=== PATIENT | female | born 1960 | race Caucasian/White ===

== ENCOUNTER 2018-01-17 19:22 | Emergency (ER) | payer SELFPAY ==
[~2018-01-17] VITALS: Ht 160 cm; Wt 78.0 kg
[~2018-01-17 19:22] MED LIST: ALBUTEROL SULF8.5 GM PO; CLONAZEPAM1 MG PO; PANTOPRAZOLE SO40 MG PO; PAROXETINE HCL20 MG PO; SINGULAIR10 MG PO; TYLENOL WITH C1 EACH PO
--- OUTSIDE RECORDS SUMMARY | 2018-01-17 19:26 | XMS REPORT | CCD ---
Author Author Auto Generated Organization [facility] Address Unknown Phone Unavailable Care Team Providers Care Regional Safety Manager Name Role Phone Mamadou Hernandez PP Rishi Martinez CP Allergies, Adverse Reactions, Alerts Substance Reaction Status NKDA Active Problem List Condition Effective Dates Status Asthma Active Cellulitis of arm1 Active HTN - Hypertension Active 1R upper arm Medications Medication Instructions Start Date End Date Status morphine Sulfate 4 mg, 2 mL, Route: IVP, Drug form: 05/01/2012 05/05/2012 Discontinued INJ, Q4H, Dosing Weight 83.636, kg, PRN Pain Score 7-10, Start date: 05/01/12 13:22:00, Duration: 30 day, Stop date: 05/31/12 13:21:00 ondansetron 4 mg, 2 mL, Route: IVP, Drug form: 05/01/2012 05/01/2012 Completed INJ, ONCE, Dosing Weight 83.636, kg, PRN Nausea & Vomiting, Start date: 05/01/12 13:22:00 acetaminophen-hydroc 1 tab, Route: PO, Drug Form: TAB, 05/01/2012 05/05/2012 Discontinued odone 325 mg-5 mg Dosing Weight 83.636, kg, Q4H, PRN oral tablet Pain Score 1-3, Start date: 05/01/12 13:22:00, Duration: 30 day, Stop date: 05/31/12 13:21:00 Sodium Chloride 1,000 mL, Rate: 125 ml/hr, Infuse 05/01/2012 05/01/2012 Discontinued 0.45% IV 1000 mL over: 8 hr, Route: IV, Dosing Weight 83.636 kg, Total Volume: 1,000, Start date: 05/01/12 13:22:00, Duration: 30 day, Stop date: 05/31/12 13:21:00 acetaminophen-hydroc 2 tab, Route: PO, Drug Form: TAB, 05/01/2012 05/04/2012 Deleted odone 325 mg-5 mg Dosing Weight 83.636, kg, Q4H, PRN oral tablet Pain Score 4-6, Start date: 05/01/12 13:22:00, Duration: 30 day, Stop date: 05/31/12 13:21:00 morphine Sulfate 2 mg, 1 mL, Route: IVP, Drug form: 05/01/2012 05/05/2012 Discontinued INJ, Q4H, Dosing Weight 83.636, kg, PRN Pain Score 6-10, Start date: 05/01/12 13:22:00, Duration: 30 day, Stop date: 05/31/12 13:21:00 NURSE: Please bring NURSE: Please bring PT's home med 05/02/2012 05/05/2012 Discontinued PT's home med to to Pharmacy to be verified, 1, Drug Pharmacy to be form: [facility], Route: MISC, TID, verified 05/02/12 20:00:00, Duration: 30 day, Stop date: 06/01/12 15:00:00 Prisiq 50mg ER Prisiq 50mg ER PT's Own 05/03/2012 05/05/2012 Discontinued PT's Own Med Med, 50 mg, Drug form: MISC, Route: PO, Daily, 05/03/12 9:00:00, Duration: 30 day, Stop date: 06/01/12 9:00:00 morphine Sulfate 2 mg, Route: IVP, Q4H, Dosing 05/01/2012 05/01/2012 Deleted Weight 83.636, kg, PRN Pain, Start date: 05/01/12 13:32:00, Duration: 30 day, Stop date: 05/31/12 13:31:00 Effexor 225 mg, PO, Daily, Substitution 05/03/2012 Ordered Allowed atenolol 50 mg oral 50 mg, 1 tab, PO, Daily, 30 tab, 05/05/2012 Ordered tablet Substitution Allowed, TAB hydromorphone 2 mg, 2 mL, Route: IV, Drug form: 05/01/2012 05/05/2012 Discontinued SOLN, Q4H, PRN Pain Score 7-10, Start date: 05/01/12 18:03:00, Duration: 30 day, Stop date: 05/31/12 18:02:00 Piqua 5/325 oral 2 tab, Route: PO, Drug Form: TAB, 05/01/2012 05/05/2012 Discontinued tablet Dosing Weight 83.636, kg, Q4H, PRN Pain Score 4-6, Start date: 05/01/12 10:58:00, Duration: 30 day, Stop date: 05/31/12 10:57:00 Dextrose 5% with 1,000 mL, Rate: 200 ml/hr, Infuse 05/01/2012 05/02/2012 Discontinued 0.45% NaCl IV 1,000 over: 5 hr, Route: IV, kg, Total mL Volume: 1,000, Start date: 05/01/12 18:05:00, Duration: 30 day, Stop date: 05/31/12 18:04:00 clonidine 0.1 mg 0.1 mg, 1 tab, Route: PO, Drug 05/01/2012 05/05/2012 Discontinued oral tablet form: TAB, QID, Dosing Weight 81.818, kg, PRN Elevated BP, Start date: 05/01/12 21:56:00, Duration: 30 day, Stop date: 05/31/12 21:55:00, sbp greater than 160 enoxaparin 40 mg, 0.4 mL, Route: SUB-Q, Drug 05/01/2012 05/05/2012 Discontinued form: INJ, [id number], Dosing Weight 83.636, kg, Start date: 05/01/12 13:00:00, Duration: 30 day, Stop date: 05/30/12 13:00:00 Lopressor 5 mg, 5 mL, Route: IV, Drug form: 05/01/2012 05/05/2012 Discontinued INJ, Q4H, PRN Elevated BP, Start date: 05/01/12 18:02:00, Duration: 30 day, Stop date: 05/31/12 18:01:00 clonidine 0.1 mg/24 1 patch, Route: TOP, Drug Form: 05/01/2012 05/05/2012 Discontinued hr transdermal film, ERFILM, Dosing Weight 83.636, kg, extended release Q7D, Start date: 05/01/12 14:00:00, Duration: 30 day, Stop date: 05/29/12 9:00:00 Effexor XR 225 mg, 3 cap, Route: PO, Drug 05/05/2012 05/05/2012 Discontinued form: ERCAP, Daily, Start date: 05/05/12 9:00:00, Duration: 30 day, Stop date: 06/03/12 9:00:00 D5NS + KCL 20mEq/L 1,000 mL, Rate: 200 ml/hr, Infuse 05/01/2012 05/01/2012 Discontinued 1000ml (Premix) over: 5 hr, Route: IV, kg, Total 1,000 mL Volume: 1,000, Start date: 05/01/12 13:30:00, Duration: 30 day, Stop date: 05/31/12 13:29:00 Singulair 10 mg, 1 tab, Route: PO, Drug form: 05/02/2012 05/05/2012 Discontinued TAB, Bedtime, Dosing Weight 81.818, kg, Start date: 05/02/12 21:00:00, Duration: 30 day, Stop date: 05/31/12 21:00:00 Pristiq 50 mg oral 50 mg, 1 tab, Route: PO, Drug form: 05/03/2012 05/02/2012 Deleted tablet, extended ERTAB, Daily, Dosing Weight 81.818, release kg, Start date: 05/03/12 9:00:00, Duration: 30 day, Stop date: 06/01/12 9:00:00 pneumococcal 0.5 ml, Route: IM, Drug Form: INJ, 05/05/2012 05/05/2012 Completed 23-valent vaccine Start date: 05/05/12 9:00:00, Stop date: 05/05/12 9:00:00 K-Dur 20 20 mEq, 1 tab, Route: PO, Drug 05/04/2012 05/04/2012 Completed form: ERTAB, ONCE, Dosing Weight 81.818, kg, Start date: 05/04/12 9:51:00, Stop date: 05/04/12 9:51:00 atenolol 50 mg oral 50 mg, 1 tab, Route: PO, Drug form: 05/03/2012 05/05/2012 Discontinued tablet TAB, Daily, Dosing Weight 81.818, kg, Start date: 05/03/12 9:00:00, Duration: 30 day, Stop date: 06/01/12 9:00:00 Abilify 5 mg, 1 tab, Route: PO, Drug form: 05/02/2012 05/05/2012 Discontinued TAB, Daily, Dosing Weight 81.818, kg, Start date: 05/02/12 19:22:00, Duration: 30 day, Stop date: 06/01/12 9:00:00 DuoNeb inhalation 3 ml, Route: INHALATION, Drug Form: 05/01/2012 05/05/2012 Discontinued solution SOLN, Dosing Weight 83.636, kg, PRN, PRN Respiratory Protocol, Start date: 05/01/12 9:12:00, Duration: 30 day, Stop date: 05/31/12 10:11:00 pneumococcal 0.5 ml, Route: IM, Drug Form: INJ, 05/05/2012 05/05/2012 Completed 23-valent vaccine Daily, Start date: 05/05/12 9:00:00, Duration: 1 doses or times, Stop date: 05/05/12 9:00:00 tramadol 50 mg oral 50 mg, 1 tab, PO, Q4H, PRN, 60 tab, 05/05/2012 Ordered tablet for pain, Substitution Allowed, TAB D5W 1/2NS + KCL 1,000 mL, Rate: 100 ml/hr, Infuse 05/02/2012 05/04/2012 Discontinued 10mEq 500ml (Premix) over: 10 hr, Route: IV, kg, Total 1,000 mL Volume: 1,000, Start date: 05/02/12 18:36:00, Stop date: 06/01/12 18:35:00 morphine Sulfate 4 mg, Route: IVP, ONCE, Dosing 05/01/2012 05/01/2012 Completed Weight 83.636, kg, Priority: STAT, Start date: 05/01/12 9:11:00, Stop date: 05/01/12 9:11:00 Saline Flush 0.9% 5 mL, Route: IVP, Drug Form: INJ, 05/01/2012 05/01/2012 Discontinued Dosing Weight 83.636, kg, PRN, PRN Line Flush, Start date: 05/01/12 9:11:00, Duration: 24 hr, Stop date: 05/02/12 9:10:00 Sodium Chloride 0.9% 1,000 mL, Rate: 1,000 ml/hr, Infuse 05/01/2012 05/01/2012 Completed (Bolus) IV 1,000 mL over: 1 hr, Route: IV, Dosing Weight 83.636 kg, Total Volume: 1,000, Priority: STAT, Start date: 05/01/12 9:11:00, Duration: 1 doses or times, Stop date: 05/01/12 10:10:00 ondansetron 4 mg, Route: IVP, ONCE, Dosing 05/01/2012 05/01/2012 Completed Weight 83.636, kg, Priority: STAT, Start date: 05/01/12 9:11:00, Stop date: 05/01/12 9:11:00 morphine Sulfate 4 mg, Route: IVP, Drug form: INJ, 05/01/2012 05/01/2012 Completed ONCE, Dosing Weight 83.636, kg, Priority: STAT, Start date: 05/01/12 9:39:00, Stop date: 05/01/12 9:39:00 Immunizations Vaccine Date Status pneumococcal 23-valent vaccine 05/05/2012 Not Done Vital Signs Most recent to oldest [Reference Range]: 1 2 3 Height 160.02 cm (05/01/2012 17:42:00) 162.56 cm (05/01/2012 09:28:00) 162.56 cm (05/01/2012 08:50:00) Temperature Oral [96.4-99.1 DegF] 97.7 DegF (05/05/2012 12:18:00) 98.4 DegF (05/05/2012 07:55:00) 98.6 DegF (05/05/2012 04:00:00) Systolic Blood Pressure [90-140 mmHg] 121 mmHg (05/05/2012 12:18:00) 124 mmHg (05/05/2012 07:55:00) 114 mmHg (05/05/2012 04:00:00) Diastolic Blood Pressure [60-90 mmHg] 85 mmHg (05/05/2012 12:18:00) 84 mmHg (05/05/2012 07:55:00) 77 mmHg (05/05/2012 04:00:00) Respiratory Rate [14-20 BRMIN] 20 BRMIN (05/05/2012 12:18:00) 20 BRMIN (05/05/2012 07:55:00) 18 BRMIN (05/05/2012 06:58:00) Peripheral Pulse Rate [60-100 bpm] 74 bpm (05/05/2012 12:18:00) 79 bpm (05/05/2012 07:55:00) 78 bpm (05/05/2012 04:00:00) Weight 81.818 kg (05/01/2012 17:42:00) 83.636 kg (05/01/2012 09:28:00) 83.636 kg (05/01/2012 08:50:00) Results BEDSIDE GLUCOSE TESTING Most recent to oldest [Reference Range]: 1 2 3 Gluc POC Lifscn [70-99 mg/dL] 99 mg/dL 1 (05/04/2012 10:12:00) 113 mg/dL 2 *HI* (05/04/2012 05:18:00) 99 mg/dL 3 (05/03/2012 15:56:00) Comment1 Notify RN/MD *NA* (05/04/2012 05:18:00) Notify RN/MD *NA* (05/03/2012 12:17:00) Notify RN/MD *NA* (05/03/2012 06:32:00) 1Interpretive Data: Upper Reportable Limit: 200 mg/dL. 2Interpretive Data: Upper Reportable Limit: 200 mg/dL. 3Interpretive Data: Upper Reportable Limit: 200 mg/dL. URINALYSIS Most recent to oldest [Reference Range]: 1 2 3 UA Turbidity [Clear] Slight *ABN* (05/01/2012 09:10:00) UA Color [Yellow] Yellow *NA* (05/01/2012 09:10:00) UA pH [5.0-8.0] 5.0 (05/01/2012 09:10:00) UA Spec Grav [<=1.030] 1.020 (05/01/2012 09:10:00) UA Glucose [Negative mg/dL] Negative mg/dL *NA* (05/01/2012 09:10:00) UA Blood [Negative] Negative (05/01/2012 09:10:00) UA Ketones [Negative mg/dL] Trace mg/dL *ABN* (05/01/2012 09:10:00) UA Protein [Negative mg/dL] 30 mg/dL *ABN* (05/01/2012 09:10:00) UA Urobilinogen [0.1-1.0 mg/dL] <=1.0 mg/dL *NA* (05/01/2012 09:10:00) UA Bili [Negative] Negative *NA* (05/01/2012 09:10:00) UA Leuk Est [Negative] Negative (05/01/2012 09:10:00) UA Nitrite [Negative] Negative (05/01/2012 09:10:00) UA WBC [0-5 /HPF] 1 /HPF (05/01/2012 09:10:00) UA RBC [0-2 /HPF] 1 /HPF (05/01/2012 09:10:00) UA Bacteria [None Seen /HPF] Occasional /HPF *NA* (05/01/2012 09:10:00) UA Sq Epi [Few /LPF] Few /LPF *NA* (05/01/2012 09:10:00) UA Hyal Cast [0-2 /LPF] 11 /LPF *HI* (05/01/2012 09:10:00) UA Mucus [None Seen /LPF] Few /LPF *NA* (05/01/2012 09:10:00) CHEMISTRY Most recent to oldest [Reference Range]: 1 2 3 Sodium Lvl [135-145 mEq/L] 139 mEq/L (05/04/2012 06:53:00) 138 mEq/L (05/03/2012 05:01:00) 139 mEq/L (05/02/2012 03:47:00) Potassium Lvl [3.5-5.1 mEq/L] 3.3 mEq/L *LOW* (05/04/2012 06:53:00) 3.6 mEq/L (05/03/2012 05:01:00) 3.6 mEq/L (05/02/2012 03:47:00) Chloride Lvl [95-109 mEq/L] 104 mEq/L (05/04/2012 06:53:00) 103 mEq/L (05/03/2012 05:01:00) 105 mEq/L (05/02/2012 03:47:00) CO2 [24-32 mEq/L] 25 mEq/L (05/04/2012 06:53:00) 26 mEq/L (05/03/2012 05:01:00) 26 mEq/L (05/02/2012 03:47:00) AGAP [10.0-20.0 mEq/L] 13.3 mEq/L (05/04/2012 06:53:00) 12.6 mEq/L (05/03/2012 05:01:00) 11.6 mEq/L (05/02/2012 03:47:00) Creatinine Lvl [0.5-1.4 mg/dL] 0.7 mg/dL (05/04/2012 06:53:00) 0.8 mg/dL (05/03/2012 05:01:00) 0.8 mg/dL (05/02/2012 03:47:00) eGFR 101 mL/min/1.73m2 4 *NA* (05/04/2012 06:53:00) 86 mL/min/1.73m2 5 *NA* (05/03/2012 05:01:00) 86 mL/min/1.73m2 6 *NA* (05/02/2012 03:47:00) BUN [7-22 mg/dL] 4 mg/dL *LOW* (05/04/2012 06:53:00) 6 mg/dL *LOW* (05/03/2012 05:01:00) 14 mg/dL (05/02/2012 03:47:00) B/C Ratio [6-25] 6 (05/04/2012 06:53:00) 8 (05/03/2012 05:01:00) 18 (05/02/2012 03:47:00) Glucose Lvl [70-99 mg/dL] 92 mg/dL 7 (05/04/2012 06:53:00) 107 mg/dL 8 *HI* (05/03/2012 05:01:00) 145 mg/dL 9 *HI* (05/02/2012 03:47:00) Total Protein [6.4-8.4 g/dL] 5.7 g/dL *LOW* (05/04/2012 06:53:00) 5.9 g/dL *LOW* (05/03/2012 05:01:00) 7.2 g/dL (05/02/2012 03:47:00) Albumin Lvl [3.5-5.0 g/dL] 2.8 g/dL *LOW* (05/04/2012 06:53:00) 3.1 g/dL *LOW* (05/03/2012 05:01:00) 3.6 g/dL (05/02/2012 03:47:00) Globulin [2.0-4.0 g/dL] 2.9 g/dL (05/04/2012 06:53:00) 2.8 g/dL (05/03/2012 05:01:00) 3.6 g/dL (05/02/2012 03:47:00) A/G Ratio [0.7-1.6] 1.0 (05/04/2012 06:53:00) 1.1 (05/03/2012 05:01:00) 1.0 (05/02/2012 03:47:00) Calcium Lvl [8.5-10.5 mg/dL] 7.8 mg/dL *LOW* (05/04/2012 06:53:00) 7.5 mg/dL *LOW* (05/03/2012 05:01:00) 8.3 mg/dL *LOW* (05/02/2012 03:47:00) ALT [0-65 unit/L] 28 unit/L (05/04/2012 06:53:00) 28 unit/L (05/03/2012 05:01:00) 27 unit/L (05/02/2012 03:47:00) AST [0-37 unit/L] 31 unit/L (05/04/2012 06:53:00) 37 unit/L (05/03/2012 05:01:00) 26 unit/L (05/02/2012 03:47:00) Alk Phos [39-136 unit/L] 87 unit/L (05/04/2012 06:53:00) 85 unit/L (05/03/2012 05:01:00) 95 unit/L (05/02/2012 03:47:00) Bili Total [0.2-1.3 mg/dL] 0.8 mg/dL (05/04/2012 06:53:00) 0.6 mg/dL (05/03/2012 05:01:00) 0.5 mg/dL (05/02/2012 03:47:00) Amylase Lvl [25-115 unit/L] 70 unit/L (05/04/2012 06:53:00) Lipase Lvl [73-393 unit/L] 705 unit/L *HI* (05/04/2012 06:53:00) 4486 unit/L *HI* (05/03/2012 05:01:00) 59918 unit/L *HI* (05/02/2012 03:47:00) CHD Risk [3.90-5.80] 3.01 *LOW* (05/02/2012 03:47:00) Chol [120-200 mg/dL] 238 mg/dL *HI* (05/02/2012 03:47:00) Trig [0-200 mg/dL] 229 mg/dL *HI* (05/02/2012 03:47:00) HDL [>=35 mg/dL] 79 mg/dL (05/02/2012 03:47:00) LDL [0-129 mg/dL] 113 mg/dL (05/02/2012 03:47:00) 4Result Comment: The eGFR is calculated using the CKD-EPI formula. In most young, healthy individuals the eGFR will be >90 mL/min/1.73m2. The eGFR declines with age. An eGFR of 60-89 may be normal in some populations, particularly the elderly, for whom the CKD-EPI formula has not been extensively validated. Use of the eGFR is not recommended in the following populations: Individuals with unstable creatinine concentrations, including patients and those with serious co-morbid conditions. Patients with extremes in muscle mass or diet. The data above are obtained from the National Kidney Disease Education Program ( NKDEP) which additionally recommends that when the eGFR is used in patients with extremes of body mass index for purposes of drug dosing, the eGFR should be mul tiplied by the estimated BMI. 5Result Comment: The eGFR is calculated using the CKD-EPI formula. In most young, healthy individuals the eGFR will be >90 mL/min/1.73m2. The eGFR declines with age. An eGFR of 60-89 may be normal in some populations, particularly the elderly, for whom the CKD-EPI formula has not been extensively validated. Use of the eGFR is not recommended in the following populations: Individuals with unstable creatinine concentrations, including patients and those with serious co-morbid conditions. Patients with extremes in muscle mass or diet. The data above are obtained from the National Kidney Disease Education Program ( NKDEP) which additionally recommends that when the eGFR is used in patients with extremes of body mass index for purposes of drug dosing, the eGFR should be mul tiplied by the estimated BMI. 6Result Comment: The eGFR is calculated using the CKD-EPI formula. In most young, healthy individuals the eGFR will be >90 mL/min/1.73m2. The eGFR declines with age. An eGFR of 60-89 may be normal in some populations, particularly the elderly, for whom the CKD-EPI formula has not been extensively validated. Use of the eGFR is not recommended in the following populations: Individuals with unstable creatinine concentrations, including patients and those with serious co-morbid conditions. Patients with extremes in muscle mass or diet. The data above are obtained from the National Kidney Disease Education Program ( NKDEP) which additionally recommends that when the eGFR is used in patients with extremes of body mass index for purposes of drug dosing, the eGFR should be mul tiplied by the estimated BMI. 7Interpretive Data: Adult reference range values reflect the clinical guidelines of the [place] [employer]. 8Interpretive Data: Adult reference range values reflect the clinical guidelines of the [place] [employer]. 9Interpretive Data: Adult reference range values reflect the clinical guidelines of the [place] [employer]. HEMATOLOGY Most recent to oldest [Reference Range]: 1 2 3 WBC [3.7-10.4 K/CMM] 8.3 K/CMM (05/04/2012 06:53:00) 7.9 K/CMM (05/03/2012 05:01:00) 7.4 K/CMM (05/02/2012 03:47:00) RBC [4.20-5.40 M/CMM] 3.78 M/CMM *LOW* (05/04/2012 06:53:00) 4.23 M/CMM (05/03/2012 05:01:00) 5.05 M/CMM (05/02/2012 03:47:00) Hgb [12.0-16.0 g/dL] 11.8 g/dL *LOW* (05/04/2012 06:53:00) 13.1 g/dL (05/03/2012 05:01:00) 15.5 g/dL (05/02/2012 03:47:00) Hct [36.0-48.0 %] 35.6 % *LOW* (05/04/2012 06:53:00) 39.8 % (05/03/2012 05:01:00) 47.6 % (05/02/2012 03:47:00) MCV [81.0-99.0 fL] 94.2 fL (05/04/2012 06:53:00) 94.1 fL (05/03/2012 05:01:00) 94.2 fL (05/02/2012 03:47:00) MCH [27.0-31.0 pg] 31.2 pg *HI* (05/04/2012 06:53:00) 30.9 pg (05/03/2012 05:01:00) 30.7 pg (05/02/2012 03:47:00) MCHC [32.0-36.0 g/dL] 33.2 g/dL (05/04/2012 06:53:00) 32.9 g/dL (05/03/2012 05:01:00) 32.6 g/dL (05/02/2012 03:47:00) RDW [11.5-14.5 %] 16.3 % *HI* (05/04/2012 06:53:00) 16.5 % *HI* (05/03/2012 05:01:00) 16.9 % *HI* (05/02/2012 03:47:00) Platelet [133-450 K/CMM] 122 K/CMM *LOW* (05/04/2012 06:53:00) 136 K/CMM (05/03/2012 05:01:00) 174 K/CMM (05/02/2012 03:47:00) MPV [7.4-10.4 fL] 8.3 fL (05/04/2012 06:53:00) 8.0 fL (05/03/2012 05:01:00) 8.0 fL (05/02/2012 03:47:00) Segs [45.0-75.0 %] 77.3 % *HI* (05/03/2012 05:01:00) 83.4 % *HI* (05/02/2012 03:47:00) 83.1 % *HI* (05/01/2012 09:10:00) Lymphocytes [20.0-40.0 %] 14.8 % *LOW* (05/03/2012 05:01:00) 10.9 % *LOW* (05/02/2012 03:47:00) 12.3 % *LOW* (05/01/2012 09:10:00) Monocytes [2.0-12.0 %] 5.5 % (05/03/2012 05:01:00) 5.1 % (05/02/2012 03:47:00) 4.1 % (05/01/2012 09:10:00) Eosinophils [0.0-4.0 %] 2.2 % (05/03/2012 05:01:00) 0.4 % (05/02/2012 03:47:00) 0.4 % (05/01/2012 09:10:00) Basophils [0.0-1.0 %] 0.2 % (05/03/2012 05:01:00) 0.2 % (05/02/2012 03:47:00) 0.1 % (05/01/2012 09:10:00) Segs-Bands # [1.5-8.1 K/CMM] 6.1 K/CMM (05/03/2012 05:01:00) 6.2 K/CMM (05/02/2012 03:47:00) 8.9 K/CMM *HI* (05/01/2012 09:10:00) Lymphocytes # [1.0-5.5 K/CMM] 1.2 K/CMM (05/03/2012 05:01:00) 0.8 K/CMM *LOW* (05/02/2012 03:47:00) 1.3 K/CMM (05/01/2012 09:10:00) Monocytes # [0.0-0.8 K/CMM] 0.4 K/CMM (05/03/2012 05:01:00) 0.4 K/CMM (05/02/2012 03:47:00) 0.4 K/CMM (05/01/2012 09:10:00) Eosinophils # [0.0-0.5 K/CMM] 0.2 K/CMM (05/03/2012 05:01:00) 0.0 K/CMM (05/02/2012 03:47:00) 0.0 K/CMM (05/01/2012 09:10:00) Basophils # [0.0-0.2 K/CMM] 0.0 K/CMM (05/03/2012 05:01:00) 0.0 K/CMM (05/02/2012 03:47:00) 0.0 K/CMM (05/01/2012 09:10:00)
--- OUTSIDE RECORDS SUMMARY | 2018-01-17 19:26 | XMS REPORT | CCD ---
Author Author Auto Generated Organization [facility] Address Unknown Phone Unavailable Care Team Providers Care [employer] [facility] Author Name Role Phone Mamadou Hernandez PP Antonio Larson CP Allergies, Adverse Reactions, Alerts Substance Reaction Status NKDA Active Problem List Condition Effective Dates Status Asthma Active Cellulitis of arm1 Active HTN - Hypertension Active 1R upper arm
--- OUTSIDE RECORDS SUMMARY | 2018-01-17 19:26 | XMS REPORT | Continuity of Care Document ---
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 values reflect the clinical guidelines of the [place] [employer]. [facility] CHEMISTRY BUN 3 mg/dL 7 - 22 12/11/2012 LOW [facility] CHEMISTRY Chloride Lvl 107 meq/L 95 - 109 12/11/2012 Normal [facility] CHEMISTRY Potassium Lvl 3.8 meq/L 3.5 - 5.1 12/11/2012 Normal [facility] CHEMISTRY Sodium Lvl 139 meq/L 135 - 145 12/11/2012 Normal [facility] HEMATOLOGY Eosinophils 2.5 % 0.0 - 4.0 12/11/2012 Normal [facility] HEMATOLOGY Basophils 0.5 % 0.0 - 1.0 12/11/2012 [facility] HEMATOLOGY Segs 74.3 % 45.0 - 75.0 12/11/2012 [facility] HEMATOLOGY Lymphocytes 11.6 % 20.0 - 40.0 12/11/2012 LOW [facility] HEMATOLOGY Monocytes 11.1 % 2.0 - 12.0 12/11/2012 [facility] HEMATOLOGY Lymphocytes # 0.8 K/CMM 1.0 - 5.5 12/11/2012 LOW [facility] HEMATOLOGY Segs-Bands # 5.2 K/CMM 1.5 - 8.1 12/11/2012 [facility] HEMATOLOGY Basophils # 0.0 K/CMM 0.0 - 0.2 12/11/2012 [facility] HEMATOLOGY Eosinophils # 0.2 K/CMM 0.0 - 0.5 12/11/2012 [facility] HEMATOLOGY Monocytes # 0.8 K/CMM 0.0 - 0.8 12/11/2012 [facility] HEMATOLOGY RBC X 10x6 3.87 M/CMM 4.20 - 5.40 12/11/2012 L[facility] HEMATOLOGY MCV 102.2 fL 81.0 - 99.0 12/11/2012 [facility] HEMATOLOGY MCH 33.1 pg 27.0 - 31.0 12/11/2012 [facility] HEMATOLOGY WBC X 10x3 7.0 K/CMM 3.7 - 10.4 12/11/2012 [facility] HEMATOLOGY MPV 8.3 fL 7.4 - 10.4 12/11/2012 [facility] HEMATOLOGY Platelet 143 K/CMM 133 - 450 12/11/2012 [facility] HEMATOLOGY Hct 39.6 % 36.0 - 48.0 12/11/2012 [facility] HEMATOLOGY Hgb 12.8 g/dL 12.0 - 16.0 12/11/2012 [facility] HEMATOLOGY RDW 16.1 % 11.5 - 14.5 12/11/2012 [facility] HEMATOLOGY MCHC 32.4 g/dL 32.0 - 36.0 12/11/2012 [facility] CHEMISTRY Magnesium Lvl 1.8 mg/dL 1.8 - 2.4 12/10/2012 [facility] CHEMISTRY Lipase Lvl 715 unit/L 73 - 393 12/10/2012 [facility] CHEMISTRY Chloride Lvl 108 meq/L 95 - 109 12/10/2012 Normal [facility] CHEMISTRY Sodium Lvl 140 meq/L 135 - 145 12/10/2012 Normal [facility] CHEMISTRY Potassium Lvl 3.6 meq/L 3.5 - 5.1 12/10/2012 Normal [facility] CHEMISTRY eGFR 112 mL/min/1.73m2 12/10/2012 2Result Comment: The eGFR is calculated using the [...] from the National Kidney Disease Education Program (NKDEP) which additionally recommends that when the eGFR is used in patients with extremes of body mass index for purposes of drug dosing, the eGFR should be multiplied by the estimated BMI. [facility] CHEMISTRY Bili Total 0.8 mg/dL 0.2 - 1.3 12/10/2012 Normal [facility] CHEMISTRY ASPARTATE TRANSAMINASE 30 unit/L 0 - 37 12/10/2012 Normal [facility] CHEMISTRY Total Protein 5.3 g/dL 6.4 - 8.4 12/10/2012 LOW [facility] CHEMISTRY Albumin Lvl 2.5 g/dL 3.5 - 5.0 12/10/2012 LOW [facility] CHEMISTRY Alk Phos 93 unit/L 39 - 136 12/10/2012 Normal [facility] CHEMISTRY ALANINE AMINOTRANSFERASE 37 unit/L 0 - 65 12/10/2012 Normal [facility] CHEMISTRY Creatinine Lvl 0.5 mg/dL 0.5 - 1.4 12/10/2012 Normal [facility] CHEMISTRY CO2 19 meq/L 24 - 32 12/10/2012 LOW [facility] CHEMISTRY Calcium Lvl 7.6 mg/dL 8.5 - 10.5 12/10/2012 LOW [facility] CHEMISTRY Glucose Lvl 73 mg/dL 70 - 99 12/10/2012 Normal 5Interpretive Data: Adult reference range values reflect the clinical guidelines of the [place] [employer]. [facility] CHEMISTRY BUN 3 mg/dL 7 - 22 12/10/2012 LOW [facility] CHEMISTRY Globulin 2.8 g/dL 2.0 - 4.0 12/10/2012 Normal [facility] CHEMISTRY A/G Ratio 0.9 0.7 - 1.6 12/10/2012 Normal [facility] CHEMISTRY AGAP 16.6 meq/L 10.0 - 20.0 12/10/2012 Normal [facility] CHEMISTRY B/C Ratio 6 6 - 25 12/10/2012 Normal [facility] CHEMISTRY Phosphorus 1.7 mg/dL 2.5 - 4.5 12/10/2012 LOW [facility] HEMATOLOGY WBC X 10x3 8.8 K/CMM 3.7 - 10.4 12/10/2012 Normal [facility] HEMATOLOGY RBC X 10x6 4.09 M/CMM 4.20 - 5.40 12/10/2012 LOW [facility] HEMATOLOGY Hct 42.5 % 36.0 - 48.0 12/10/2012 Normal [facility] HEMATOLOGY Hgb 14.0 g/dL 12.0 - 16.0 12/10/2012 Normal [facility] HEMATOLOGY MCH 34.3 pg 27.0 - 31.0 12/10/2012 [facility] HEMATOLOGY MCV 103.7 fL 81.0 - 99.0 12/10/2012 [facility] HEMATOLOGY RDW 16.0 % 11.5 - 14.5 12/10/2012 [facility] HEMATOLOGY MCHC 33.1 g/dL 32.0 - 36.0 12/10/2012 Normal [facility] HEMATOLOGY MPV 8.4 fL 7.4 - 10.4 12/10/2012 Normal [facility] HEMATOLOGY Platelet 126 K/CMM 133 - 450 12/10/2012 LOW [facility] HEMATOLOGY Basophils # 0.0 K/CMM 0.0 - 0.2 12/10/2012 Normal [facility] HEMATOLOGY Eosinophils # 0.2 K/CMM 0.0 - 0.5 12/10/2012 Normal [facility] HEMATOLOGY Eosinophils 2.3 % 0.0 - 4.0 12/10/2012 Normal [facility] HEMATOLOGY Monocytes # 0.7 K/CMM 0.0 - 0.8 12/10/2012 Normal [facility] HEMATOLOGY Basophils 0.2 % 0.0 - 1.0 12/10/2012 Normal [facility] HEMATOLOGY Lymphocytes # 0.8 K/CMM 1.0 - 5.5 12/10/2012 LOW [facility] HEMATOLOGY Segs-Bands # 7.0 K/CMM 1.5 - 8.1 12/10/2012 Normal [facility] HEMATOLOGY Monocytes 8.2 % 2.0 - 12.0 12/10/2012 Normal [facility] HEMATOLOGY Lymphocytes 9.2 % 20.0 - 40.0 12/10/2012 LOW [facility] HEMATOLOGY Segs 80.1 % 45.0 - 75.0 12/10/2012 [facility] Abdomen AP view Abdomen AP view PROCEDURE: Abdomen 1 view CLINICAL INFORMATION Abdominal distension COMPARISON: CAT scan 12/08/2012. There is contrast noted predominately in the transverse colon and descending colon. The appendix is opacified by contrast. Air-filled loops of small bowel are likely due to ileus. The degree of distention appears stable to improved from the CAT scan of 12/08/2012. Underpenetration limits evaluation of detail. There is a right hip replacement. SL: 15 12/09/2012 - - Read by: Teodoro Peres Dictated Date/time: 12/09/12 15:30 Electronically Signed by: Teodoro Peres MD 12/09/12 15:32 FINAL REPORT [facility] CHEMISTRY Phosphorus 3.0 mg/dL 2.5 - 4.5 12/09/2012 Normal [facility] CHEMISTRY LDL CHOLESTEROL 82 mg/dL <=99 12/09/2012 Normal [facility] CHEMISTRY Trig 80 mg/dL <=149 12/09/2012 Normal [facility] CHEMISTRY Chol 152 mg/dL <=199 12/09/2012 Normal [facility] CHEMISTRY HDL 54 mg/dL >=61 12/09/2012 LOW [facility] CHEMISTRY CHD Risk 2.81 3.90 - 5.80 12/09/2012 LOW [facility] CHEMISTRY Magnesium Lvl 1.9 mg/dL 1.8 - 2.4 12/09/2012 Normal [facility] CHEMISTRY Lipase Lvl 4603 unit/L 73 - 393 12/09/2012 [facility] CHEMISTRY eGFR 105 mL/min/1.73m2 12/09/2012 3Result Comment: The eGFR is calculated using the [...] from the National Kidney Disease Education Program (NKDEP) which additionally recommends that when the eGFR is used in patients with extremes of body mass index for purposes of drug dosing, the eGFR should be multiplied by the estimated BMI. [facility] CHEMISTRY Glucose Lvl 93 mg/dL 70 - 99 12/09/2012 Normal 6Interpretive Data: Adult reference range values reflect the clinical guidelines of the [place] [employer]. [facility] CHEMISTRY Sodium Lvl 142 meq/L 135 - 145 12/09/2012 Normal [facility] CHEMISTRY Creatinine Lvl 0.6 mg/dL 0.5 - 1.4 12/09/2012 Normal [facility] CHEMISTRY Potassium Lvl 4.5 meq/L 3.5 - 5.1 12/09/2012 Normal [facility] CHEMISTRY Chloride Lvl 106 meq/L 95 - 109 12/09/2012 Normal [facility] CHEMISTRY Calcium Lvl 8.4 mg/dL 8.5 - 10.5 12/09/2012 LOW [facility] CHEMISTRY BUN 7 mg/dL 7 - 22 12/09/2012 Normal [facility] CHEMISTRY CO2 22 meq/L 24 - 32 12/09/2012 LOW [facility] CHEMISTRY AGAP 18.5 meq/L 10.0 - 20.0 12/09/2012 Normal [facility] HEMATOLOGY Monocytes # 0.6 K/CMM 0.0 - 0.8 12/09/2012 Normal [facility] HEMATOLOGY Segs-Bands # 8.1 K/CMM 1.5 - 8.1 12/09/2012 Normal [facility] HEMATOLOGY Basophils 0.3 % 0.0 - 1.0 12/09/2012 Normal [facility] HEMATOLOGY Lymphocytes # 0.9 K/CMM 1.0 - 5.5 12/09/2012 LOW [facility] HEMATOLOGY Polychrom Slight (12/09/2012 06:06:00) None Seen 12/09/2012 Normal [facility] HEMATOLOGY Anisocyte 1+ *ABN* (12/09/2012 06:06:00) None Seen 12/09/2012 ABN [facility] HEMATOLOGY Basophils # 0.0 K/CMM 0.0 - 0.2 12/09/2012 Normal [facility] HEMATOLOGY Eosinophils # 0.1 K/CMM 0.0 - 0.5 12/09/2012 Normal [facility] HEMATOLOGY Eosinophils 0.7 % 0.0 - 4.0 12/09/2012 Normal [facility] HEMATOLOGY Lymphocytes 9.6 % 20.0 - 40.0 12/09/2012 LOW [facility] HEMATOLOGY Segs 83.6 % 45.0 - 75.0 12/09/2012 [facility] HEMATOLOGY Monocytes 5.8 % 2.0 - 12.0 12/09/2012 Normal [facility] HEMATOLOGY Plt Morph Normal (12/09/2012 06:06:00) 12/09/2012 Normal [facility] HEMATOLOGY MCHC 32.5 g/dL 32.0 - 36.0 12/09/2012 Normal [facility] HEMATOLOGY Platelet 137 K/CMM 133 - 450 12/09/2012 Normal [facility] HEMATOLOGY RDW 16.4 % 11.5 - 14.5 12/09/2012 [facility] HEMATOLOGY MPV 8.6 fL 7.4 - 10.4 12/09/2012 Normal [facility] HEMATOLOGY RBC X 10x6 4.61 M/CMM 4.20 - 5.40 12/09/2012 Normal [facility] HEMATOLOGY Hct 47.5 % 36.0 - 48.0 12/09/2012 Normal [facility] HEMATOLOGY Hgb 15.5 g/dL 12.0 - 16.0 12/09/2012 Normal [facility] HEMATOLOGY MCH 33.5 pg 27.0 - 31.0 12/09/2012 [facility] HEMATOLOGY MCV 103.1 fL 81.0 - 99.0 12/09/2012 [facility] HEMATOLOGY WBC X 10x3 9.6 K/CMM 3.7 - 10.4 12/09/2012 Normal [facility] CHEMISTRY Total Protein 7.4 g/dL 6.4 - 8.4 12/08/2012 Normal [facility] CHEMISTRY Alk Phos 89 unit/L 39 - 136 12/08/2012 Normal [facility] CHEMISTRY ALANINE AMINOTRANSFERASE 52 unit/L 0 - 65 12/08/2012 Normal [facility] CHEMISTRY Albumin Lvl 3.8 g/dL 3.5 - 5.0 12/08/2012 Normal [facility] CHEMISTRY Bili Total 0.9 mg/dL 0.2 - 1.3 12/08/2012 Normal [facility] CHEMISTRY ASPARTATE TRANSAMINASE 58 unit/L 0 - 37 12/08/2012 [facility] CHEMISTRY A/G Ratio 1.1 0.7 - 1.6 12/08/2012 Normal [facility] CHEMISTRY B/C Ratio 14 6 - 25 12/08/2012 Normal [facility] CHEMISTRY Globulin 3.6 g/dL 2.0 - 4.0 12/08/2012 Normal [facility] CHEMISTRY CK MB 0.6 ng/mL 0.5 - 3.6 12/08/2012 Normal [facility] CHEMISTRY Troponin-I null 0.00 - 0.40 12/08/2012 Normal [facility] Abdomen/Pelvis w contrast CT Abdomen/Pelvis w contrast CT CT ABDOMEN WITH CONTRAST; CT PELVIS WITH CONTRAST: TECHNIQUE: Both exams were done with oral and IV contrast. FINDINGS: There is hazy increased density in the peripancreatic fat extending into the lesser sac, increasing slightly since 05/03/2012. The pancreas is mildly enlarged but otherwise normal in appearance. 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 There is no other pseudocyst, abscess or mass. There is no free fluid. There is no evidence of pneumoperitoneum. Fatty infiltration of the liver is seen. The gallbladder has been removed. The common duct measures about 8 mm in diameter. The GI tract is otherwise unremarkable. Sterilization wires are noted in the fallopian tubes bilaterally. The uterus and adnexal regions are otherwise unremarkable. IMPRESSION: Pancreatitis with increase in peripancreatic edema since 05/03/2012. There is no evidence of acute pseudocyst or abscess. SL:13 12/08/2012 - - Read by: Joseph Reynoso Dictated Date/time: 12/08/12 10:02 Electronically Signed by: Joseph Reynoso MD 12/08/12 10:10 FINAL REPORT [facility] CK MB Index 1.1 0.0 - 2.5 07/12/2012 Normal [facility] CHEMISTRY AGAP 13.7 meq/L 10.0 - 20.0 07/12/2012 Normal [facility] CHEMISTRY Globulin 3.4 g/dL 2.0 - 4.0 07/12/2012 Normal [facility] CHEMISTRY Glucose Lvl 99 mg/dL 70 - 99 07/12/2012 Normal 2Interpretive Data: Adult reference range values reflect the clinical guidelines of the [place] [employer]. [facility] CHEMISTRY A/G Ratio 1.0 0.7 - 1.6 07/12/2012 Normal [facility] CHEMISTRY eGFR 86 mL/min/1.73m2 07/12/2012 NA 1Result Comment: The eGFR is calculated using the [...] from the National Kidney Disease Education Program (NKDEP) which additionally recommends that when the eGFR is used in patients with extremes of body mass index for purposes of drug dosing, the eGFR should be multiplied by the estimated BMI. [facility] CHEMISTRY Calcium Lvl 8.9 mg/dL 8.5 - 10.5 07/12/2012 Normal [facility] CHEMISTRY Albumin Lvl 3.4 g/dL 3.5 - 5.0 07/12/2012 LOW [facility] CHEMISTRY Total Protein 6.8 g/dL 6.4 - 8.4 07/12/2012 Normal [facility] CHEMISTRY Alk Phos 72 unit/L 39 - 136 07/12/2012 Normal [facility] CHEMISTRY ALT 34 unit/L 0 - 65 07/12/2012 Normal [facility] CHEMISTRY AST 29 unit/L 0 - 37 07/12/2012 Normal [facility] CHEMISTRY Bili Total 0.5 mg/dL 0.2 - 1.3 07/12/2012 Normal [facility] CHEMISTRY B/C Ratio 10 6 - 25 07/12/2012 Normal [facility] CHEMISTRY BUN 8 mg/dL 7 - 22 07/12/2012 Normal [facility] CHEMISTRY Creatinine Lvl 0.8 mg/dL 0.5 - 1.4 07/12/2012 Normal [facility] CHEMISTRY CO2 23 meq/L 24 - 32 07/12/2012 LOW [facility] CHEMISTRY Sodium Lvl 141 meq/L 135 - 145 07/12/2012 Normal [facility] CHEMISTRY Potassium Lvl 3.7 meq/L 3.5 - 5.1 07/12/2012 Normal [facility] CHEMISTRY Chloride Lvl 108 meq/L 95 - 109 07/12/2012 Normal [facility] CHEMISTRY Troponin-I null 0.00 - 0.40 07/12/2012 Normal [facility] CHEMISTRY Total CK 87 unit/L 12 - 191 07/12/2012 Normal [facility] CHEMISTRY CK MB 1.0 ng/mL 0.5 - 3.6 07/12/2012 Normal [facility] CHEMISTRY Lipase Lvl 821 unit/L 73 - 393 07/12/2012 [facility] CHEMISTRY Magnesium Lvl 1.7 mg/dL 1.8 - 2.4 07/12/2012 LOW [facility] HEMATOLOGY Segs-Bands # 4.1 K/CMM 1.5 - 8.1 07/12/2012 Normal [facility] HEMATOLOGY Basophils 0.6 % 0.0 - 1.0 07/12/2012 Normal [facility] HEMATOLOGY Lymphocytes 28.2 % 20.0 - 40.0 07/12/2012 Normal [facility] HEMATOLOGY Segs 61.1 % 45.0 - 75.0 07/12/2012 Normal [facility] HEMATOLOGY Basophils # 0.0 K/CMM 0.0 - 0.2 07/12/2012 Normal [facility] HEMATOLOGY Eosinophils # 0.1 K/CMM 0.0 - 0.5 07/12/2012 Normal [facility] HEMATOLOGY Monocytes # 0.6 K/CMM 0.0 - 0.8 07/12/2012 Normal [facility] HEMATOLOGY Lymphocytes # 1.9 K/CMM 1.0 - 5.5 07/12/2012 Normal [facility] HEMATOLOGY Eosinophils 1.8 % 0.0 - 4.0 07/12/2012 Normal [facility] HEMATOLOGY Monocytes 8.3 % 2.0 - 12.0 07/12/2012 Normal [facility] HEMATOLOGY RDW 17.4 % 11.5 - 14.5 07/12/2012 [facility] HEMATOLOGY MCHC 33.4 g/dL 32.0 - 36.0 07/12/2012 Normal [facility] HEMATOLOGY MPV 7.8 fL 7.4 - 10.4 07/12/2012 Normal [facility] HEMATOLOGY Platelet 190 K/CMM 133 - 450 07/12/2012 Normal [facility] MCH 33.1 pg 27.0 - 31.0 07/12/2012 [facility] HEMATOLOGY MCV 99.3 fL 81.0 - 99.0 07/12/2012 [facility] HEMATOLOGY Hgb 13.9 g/dL 12.0 - 16.0 07/12/2012 Normal [facility] HEMATOLOGY RBC 4.18 M/CMM 4.20 - 5.40 07/12/2012 LOW [facility] HEMATOLOGY WBC 6.7 K/CMM 3.7 - 10.4 07/12/2012 Normal [facility] HEMATOLOGY Hct 41.5 % 36.0 - 48.0 07/12/2012 Normal [facility] HEMATOLOGY INR 0.97 0.85 - 1.17 07/12/2012 Normal 3Interpretive Data: RECOMMENDED RANGES FOR PROTIME INR: 2.0-3.0 for most medical and surgical thromboembolic states. 2.5-3.5 for artificial heart valves and recurrent embolism. INR SHOULD BE USED ONLY FOR PATIENTS ON STABLE ANTICOAGULANT THERAPY. [facility] HEMATOLOGY PTT 26.4 s 22.9 - 35.8 07/12/2012 Normal 4Interpretive Data: Heparin Therapeutic Range: 57 - 92 Seconds [facility] HEMATOLOGY PT 13.1 s 12.0 - 14.7 07/12/2012 Normal [facility] Chest 1view Chest 1view Chest, one view. HISTORY: Wheezing. COMPARISON: 04/08/2008. FINDINGS: The lungs are clear. No pleural effusion or pneumothorax. Heart size normal. Osseous structures unremarkable. SL: 14 07/11/2012 - - Read by: Edward Rivera Dictated Date/time: 07/11/12 22:36 Electronically Signed by: Edward Rivera MD 07/11/12 22:37 FINAL REPORT [facility] BEDSIDE GLUCOSE TESTING Gluc POC Lifscn 99 mg/dL 70 - 99 05/04/2012 Normal 1Interpretive Data: Upper Reportable Limit: 200 mg/dL. [facility] CHEMISTRY Amylase Lvl 70 unit/L 25 - 115 05/04/2012 Normal [facility] CHEMISTRY A/G Ratio 1.0 0.7 - 1.6 05/04/2012 Normal [facility] CHEMISTRY B/C Ratio 6 6 - 25 05/04/2012 Normal [facility] CHEMISTRY Globulin 2.9 g/dL 2.0 - 4.0 05/04/2012 Normal [facility] CHEMISTRY AGAP 13.3 meq/L 10.0 - 20.0 05/04/2012 Normal [facility] CHEMISTRY AST 31 unit/L 0 - 37 05/04/2012 Normal [facility] CHEMISTRY eGFR 101 mL/min/1.73m2 05/04/2012 NA 4Result Comment: The eGFR is calculated using [...] from the National Kidney Disease Education Program (NKDEP) which additionally recommends that when the eGFR is used in patients with extremes of body mass index for purposes of drug dosing, the eGFR should be multiplied by the estimated BMI. [facility] CHEMISTRY Creatinine Lvl 0.7 mg/dL 0.5 - 1.4 05/04/2012 Normal [facility] CHEMISTRY CO2 25 meq/L 24 - 32 05/04/2012 Normal [facility] CHEMISTRY Glucose Lvl 92 mg/dL 70 - 99 05/04/2012 Normal 7Interpretive Data: Adult reference range values reflect the clinical guidelines of the [place] [employer]. [facility] CHEMISTRY BUN 4 mg/dL 7 - 22 05/04/2012 LOW [facility] CHEMISTRY Albumin Lvl 2.8 g/dL 3.5 - 5.0 05/04/2012 LOW [facility] CHEMISTRY Calcium Lvl 7.8 mg/dL 8.5 - 10.5 05/04/2012 LOW [facility] CHEMISTRY Total Protein 5.7 g/dL 6.4 - 8.4 05/04/2012 LOW [facility] CHEMISTRY Bili Total 0.8 mg/dL 0.2 - 1.3 05/04/2012 Normal [facility] CHEMISTRY ALT 28 unit/L 0 - 65 05/04/2012 Normal [facility] CHEMISTRY Alk Phos 87 unit/L 39 - 136 05/04/2012 Normal [facility] CHEMISTRY Sodium Lvl 139 meq/L 135 - 145 05/04/2012 Normal [facility] CHEMISTRY Potassium Lvl 3.3 meq/L 3.5 - 5.1 05/04/2012 LOW [facility] CHEMISTRY Chloride Lvl 104 meq/L 95 - 109 05/04/2012 Normal [facility] CHEMISTRY Lipase Lvl 705 unit/L 73 - 393 05/04/2012 [facility] HEMATOLOGY MCV 94.2 fL 81.0 - 99.0 05/04/2012 Normal [facility] HEMATOLOGY MCH 31.2 pg 27.0 - 31.0 05/04/2012 [facility] HEMATOLOGY Hct 35.6 % 36.0 - 48.0 05/04/2012 LOW [facility] HEMATOLOGY MCHC 33.2 g/dL 32.0 - 36.0 05/04/2012 Normal [facility] HEMATOLOGY RDW 16.3 % 11.5 - 14.5 05/04/2012 [facility] HEMATOLOGY Platelet 122 K/CMM 133 - 450 05/04/2012 LOW [facility] HEMATOLOGY RBC 3.78 M/CMM 4.20 - 5.40 05/04/2012 LOW [facility] HEMATOLOGY Hgb 11.8 g/dL 12.0 - 16.0 05/04/2012 LOW [facility] HEMATOLOGY WBC 8.3 K/CMM 3.7 - 10.4 05/04/2012 Normal [facility] HEMATOLOGY MPV 8.3 fL 7.4 - 10.4 05/04/2012 Normal [facility] BEDSIDE GLUCOSE TESTING Comment1 Notify LUAN 05/04/2012 NA [facility] BEDSIDE GLUCOSE TESTING Gluc POC Lifscn 113 mg/dL 70 - 99 05/04/2012 HI 2Interpretive Data: Upper Reportable Limit: 200 mg/dL. [facility] BEDSIDE GLUCOSE TESTING Gluc POC Lifscn 99 mg/dL 70 - 99 05/03/2012 Normal 3Interpretive Data: Upper Reportable Limit: 200 mg/dL. [facility] BEDSIDE GLUCOSE TESTING Comment1 Notify LUAN 05/03/2012 NA [facility] BEDSIDE GLUCOSE TESTING Comment1 Notify LUAN 05/03/2012 NA [facility] CHEMISTRY Lipase Lvl 4486 unit/L 73 - 393 05/03/2012 HI [facility] CHEMISTRY A/G Ratio 1.1 0.7 - 1.6 05/03/2012 Normal [facility] CHEMISTRY Globulin 2.8 g/dL 2.0 - 4.0 05/03/2012 Normal [facility] CHEMISTRY B/C Ratio 8 6 - 25 05/03/2012 Normal [facility] CHEMISTRY AGAP 12.6 meq/L 10.0 - 20.0 05/03/2012 Normal [facility] CHEMISTRY eGFR 86 mL/min/1.73m2 05/03/2012 NA 5Result Comment: The eGFR is calculated using [...] from the National Kidney Disease Education Program (NKDEP) which additionally recommends that when the eGFR is used in patients with extremes of body mass index for purposes of drug dosing, the eGFR should be multiplied by the estimated BMI. [facility] CHEMISTRY Creatinine Lvl 0.8 mg/dL 0.5 - 1.4 05/03/2012 Normal [facility] CHEMISTRY Calcium Lvl 7.5 mg/dL 8.5 - 10.5 05/03/2012 LOW [facility] CHEMISTRY Potassium Lvl 3.6 meq/L 3.5 - 5.1 05/03/2012 Normal [facility] CHEMISTRY Sodium Lvl 138 meq/L 135 - 145 05/03/2012 Normal [facility] CHEMISTRY Chloride Lvl 103 meq/L 95 - 109 05/03/2012 Normal [facility] CHEMISTRY Bili Total 0.6 mg/dL 0.2 - 1.3 05/03/2012 Normal [facility] CHEMISTRY AST 37 unit/L 0 - 37 05/03/2012 Normal [facility] CHEMISTRY Total Protein 5.9 g/dL 6.4 - 8.4 05/03/2012 LOW [facility] CHEMISTRY Albumin Lvl 3.1 g/dL 3.5 - 5.0 05/03/2012 LOW [facility] CHEMISTRY ALT 28 unit/L 0 - 65 05/03/2012 Normal [facility] CHEMISTRY Alk Phos 85 unit/L 39 - 136 05/03/2012 Normal [facility] CHEMISTRY BUN 6 mg/dL 7 - 22 05/03/2012 LOW [facility] CHEMISTRY CO2 26 meq/L 24 - 32 05/03/2012 Normal [facility] CHEMISTRY Glucose Lvl 107 mg/dL 70 - 99 05/03/2012 [place] 8Interpretive Data: Adult reference range values reflect the clinical guidelines of the [place] [employer]. [facility] HEMATOLOGY Lymphocytes 14.8 % 20.0 - 40.0 05/03/2012 LOW [facility] HEMATOLOGY Eosinophils 2.2 % 0.0 - 4.0 05/03/2012 Normal [facility] HEMATOLOGY Segs-Bands # 6.1 K/CMM 1.5 - 8.1 05/03/2012 Normal [facility] HEMATOLOGY Monocytes 5.5 % 2.0 - 12.0 05/03/2012 Normal [facility] HEMATOLOGY Basophils 0.2 % 0.0 - 1.0 05/03/2012 Normal [facility] HEMATOLOGY Segs 77.3 % 45.0 - 75.0 05/03/2012 HI [facility] HEMATOLOGY Lymphocytes # 1.2 K/CMM 1.0 - 5.5 05/03/2012 Normal [facility] HEMATOLOGY Eosinophils # 0.2 K/CMM 0.0 - 0.5 05/03/2012 Normal [facility] HEMATOLOGY Monocytes # 0.4 K/CMM 0.0 - 0.8 05/03/2012 Normal [facility] HEMATOLOGY Basophils # 0.0 K/CMM 0.0 - 0.2 05/03/2012 Normal [facility] HEMATOLOGY MCV 94.1 fL 81.0 - 99.0 05/03/2012 Normal [facility] HEMATOLOGY RDW 16.5 % 11.5 - 14.5 05/03/2012 HI [facility] HEMATOLOGY Platelet 136 K/CMM 133 - 450 05/03/2012 Normal [facility] HEMATOLOGY MCHC 32.9 g/dL 32.0 - 36.0 05/03/2012 Normal [facility] HEMATOLOGY MCH 30.9 pg 27.0 - 31.0 05/03/2012 Normal [facility] MPV 8.0 fL 7.4 - 10.4 05/03/2012 Normal [facility] HEMATOLOGY RBC 4.23 M/CMM 4.20 - 5.40 05/03/2012 Normal [facility] Hct 39.8 % 36.0 - 48.0 05/03/2012 Normal [facility] HEMATOLOGY WBC 7.9 K/CMM 3.7 - 10.4 05/03/2012 Normal [facility] HEMATOLOGY Hgb 13.1 g/dL 12.0 - 16.0 05/03/2012 Normal [facility] CHEMISTRY ALT 27 unit/L 0 - 65 05/02/2012 Normal [facility] CHEMISTRY Total Protein 7.2 g/dL 6.4 - 8.4 05/02/2012 Normal [facility] CHEMISTRY Alk Phos 95 unit/L 39 - 136 05/02/2012 Normal [facility] CHEMISTRY AST 26 unit/L 0 - 37 05/02/2012 Normal [facility] CHEMISTRY Bili Total 0.5 mg/dL 0.2 - 1.3 05/02/2012 Normal [facility] CHEMISTRY eGFR 86 mL/min/1.73m2 05/02/2012 NA 6Result Comment: The eGFR is calculated using [...] from the [employer] Education Program (NKDEP) which additionally recommends that when the eGFR is used in patients with extremes of body mass index for purposes of drug dosing, the eGFR should be multiplied by the estimated BMI. [facility] CHEMISTRY BUN 14 mg/dL 7 - 22 05/02/2012 Normal [facility] CHEMISTRY Glucose Lvl 145 mg/dL 70 - 99 05/02/2012 [facility] 9Interpretive Data: Adult reference range values reflect the clinical guidelines of the [place] [employer]. [facility] CHEMISTRY Sodium Lvl 139 meq/L 135 - 145 05/02/2012 Normal [facility] CHEMISTRY Creatinine Lvl 0.8 mg/dL 0.5 - 1.4 05/02/2012 Normal [facility] CHEMISTRY Potassium Lvl 3.6 meq/L 3.5 - 5.1 05/02/2012 Normal [facility] CHEMISTRY Chloride Lvl 105 meq/L 95 - 109 05/02/2012 Normal [facility] CHEMISTRY AGAP 11.6 meq/L 10.0 - 20.0 05/02/2012 Normal [facility] CHEMISTRY CO2 26 meq/L 24 - 32 05/02/2012 Normal [facility] CHEMISTRY B/C Ratio 18 6 - 25 05/02/2012 Normal [facility] CHEMISTRY Calcium Lvl 8.3 mg/dL 8.5 - 10.5 05/02/2012 LOW [facility] CHEMISTRY Albumin Lvl 3.6 g/dL 3.5 - 5.0 05/02/2012 Normal [facility] CHEMISTRY A/G Ratio 1.0 0.7 - 1.6 05/02/2012 Normal [facility] CHEMISTRY Globulin 3.6 g/dL 2.0 - 4.0 05/02/2012 Normal [facility] CHEMISTRY LDL 113 mg/dL 0 - 129 05/02/2012 Normal [facility] CHEMISTRY Chol 238 mg/dL 120 - 200 05/02/2012 [facility] CHEMISTRY Trig 229 mg/dL 0 - 200 05/02/2012 HI [facility] CHEMISTRY HDL 79 mg/dL >=35 05/02/2012 Normal [facility] CHEMISTRY CHD Risk 3.01 3.90 - 5.80 05/02/2012 LOW [facility] [place]MISTRY [place] 39590 unit/L 73 - 393 05/02/2012 HI [facility] HEMATOLOGY Segs-Bands # 6.2 K/CMM 1.5 - 8.1 05/02/2012 Normal [facility] HEMATOLOGY Eosinophils 0.4 % 0.0 - 4.0 05/02/2012 Normal [facility] HEMATOLOGY Monocytes 5.1 % 2.0 - 12.0 05/02/2012 Normal [facility] HEMATOLOGY Basophils 0.2 % 0.0 - 1.0 05/02/2012 Normal [facility] HEMATOLOGY Monocytes # 0.4 K/CMM 0.0 - 0.8 05/02/2012 Normal [facility] HEMATOLOGY Eosinophils # 0.0 K/CMM 0.0 - 0.5 05/02/2012 Normal [facility] HEMATOLOGY Basophils # 0.0 K/CMM 0.0 - 0.2 05/02/2012 Normal [facility] HEMATOLOGY Lymphocytes # 0.8 K/CMM 1.0 - 5.5 05/02/2012 LOW [facility] HEMATOLOGY Segs 83.4 % 45.0 - 75.0 05/02/2012 [facility] HEMATOLOGY Lymphocytes 10.9 % 20.0 - 40.0 05/02/2012 LOW [facility] HEMATOLOGY MPV 8.0 fL 7.4 - 10.4 05/02/2012 Normal [facility] HEMATOLOGY Platelet 174 K/CMM 133 - 450 05/02/2012 Normal [facility] HEMATOLOGY RBC 5.05 M/CMM 4.20 - 5.40 05/02/2012 Normal [facility] HEMATOLOGY WBC 7.4 K/CMM 3.7 - 10.4 05/02/2012 Normal [facility] HEMATOLOGY MCHC 32.6 g/dL 32.0 - 36.0 05/02/2012 Normal [facility] HEMATOLOGY Hgb 15.5 g/dL 12.0 - 16.0 05/02/2012 Normal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
--- OUTSIDE RECORDS SUMMARY | 2018-01-17 19:27 | XMS REPORT | CCD ---
Author Author Auto Generated Organization [facility] Address Unknown Phone Unavailable Care Team Providers Care Tip Stitcher Name Role Phone Mamadou Hernandez PP Yolanda Christine CP Allergies, Adverse Reactions, Alerts Substance Reaction Status NKDA Active Problem List Condition Effective Dates Status Anxiety Resolved Asthma Resolved Asthma Active Cellulitis of arm1 Active HTN - Hypertension Active Hypertension Resolved Pancreatitis Resolved 1R upper arm Medications Medication Instructions Start Date End Date Status folic acid 1 mg, 1 tab, Route: PO, Drug form: 12/09/2012 12/12/2012 Discontinued TAB, Daily, Dosing Weight 81.818, kg, Start date: 12/09/12 9:00:00, Duration: 30 day, Stop date: 01/07/13 9:00:00(Same as: Folvite) Theragran 1 tab, Route: PO, Drug Form: TAB, 12/09/2012 12/12/2012 Discontinued Dosing Weight 81.818, kg, Daily, Start date: 12/09/12 9:00:00, Duration: 30 day, Stop date: 01/07/13 9:00:00(Same as:One Tab Daily, Tab-A-Linda + Beta Carotene) Give with food. normal saline 0.9% 1,000 mL, Rate: 999 ml/hr, Infuse 12/09/2012 12/09/2012 Completed IV 1,000 mL over: 1 hr, Route: IV, Dosing Weight 81.818 kg, Total Volume: 1,000 Liter, Start date: 12/09/12 10:13:00, Duration: 2 doses or times, Stop date: 12/09/12 12:12:00 thiamine 100 mg, 1 tab, Route: PO, Drug 12/09/2012 12/12/2012 Discontinued form: TAB, Daily, Dosing Weight 81.818, kg, Start date: 12/09/12 9:00:00, Duration: 30 day, Stop date: 01/07/13 9:00:00(Same As: Vitamin B1) Zofran 4 mg oral 4 mg, 1 tab, PO, Q4H, 30 tab, 12/12/2012 Ordered tablet Substitution Allowed [place] 10/325 oral 1 tab, PO, Q4H, PRN, 24 tab, for 12/12/2012 Ordered tablet pain, Substitution Allowed, Maintenance morphine Sulfate 4 mg, Route: IVP, Drug form: INJ, 12/08/2012 12/08/2012 Completed ONCE, Dosing Weight 81.818, kg, Priority: STAT, Start date: 12/08/12 11:42:00, Stop date: 12/08/12 11:42:00 clonazepam 0.5 mg 0.5 mg, 1 tab, PO, BID, PRN, as 12/08/2012 Ordered oral tablet needed for anxiety, Substitution Allowed, TAB Sodium Chloride 0.9% 1,000 mL, Rate: 1,000 ml/hr, Infuse 12/08/2012 12/08/2012 Completed (Bolus) IV 1000 mL over: 1 hr, Route: IV, Dosing Weight 81.818 kg, Total Volume: 1,000, Priority: STAT, Start date: 12/08/12 10:08:00, Duration: 1 doses or times, Stop date: 12/08/12 11:07:00, Bolus Dose Bolus Dose influenza virus 0.5 ml, Route: IM, Drug Form: SUSP, 12/09/2012 12/09/2012 Completed vaccine, inactivated Start date: 12/09/12 9:00:00, Stop date: 12/09/12 9:00:00 Dilaudid 1 mg, 1 mL, Route: IV, Drug form: 12/08/2012 12/08/2012 Discontinued INJ, Q4H, Dosing Weight 81.818, kg, PRN Pain Score 6-10, Start date: 12/08/12 15:35:00, Duration: 30 day, Stop date: 01/07/13 15:34:00 Effexor 225 mg, 3 tab, Route: PO, Drug 12/09/2012 12/12/2012 Discontinued form: TAB, Daily, Dosing Weight 81.818, kg, Start date: 12/09/12 9:00:00, Duration: 30 day, Stop date: 01/07/13 9:00:00(Same As: Effexor) Singulair 10 mg, 1 tab, Route: PO, Drug form: 12/08/2012 12/12/2012 Discontinued TAB, Bedtime, Dosing Weight 81.818, kg, Start date: 12/08/12 21:00:00, Duration: 30 day, Stop date: 01/06/13 21:00:00(Same as:Singulair) Abilify 5 mg, 1 tab, Route: PO, Drug form: 12/09/2012 12/12/2012 Discontinued TAB, Daily, Dosing Weight 81.818, kg, Start date: 12/09/12 9:00:00, Duration: 30 day, Stop date: 01/07/13 9:00:00Non-Formulary Drug. (Same as: Abilify) Pristiq 50 mg oral 50 mg, 1 tab, Route: PO, Drug form: 12/09/2012 12/08/2012 Canceled tablet, extended ERTAB, Daily, Dosing Weight 81.818, release kg, Start date: 12/09/12 9:00:00, Duration: 30 day, Stop date: 01/07/13 9:00:00 clonazepam 0.5 mg, 1 tab, Route: PO, Drug 12/08/2012 12/12/2012 Discontinued form: TAB, BID, Dosing Weight 81.818, kg, PRN Anxiety, Start date: 12/08/12 17:02:00, Duration: 30 day, Stop date: 01/07/13 17:01:00(Same As: Klonopin) ondansetron 4 mg, Route: IVP, ONCE, Dosing 12/08/2012 12/08/2012 Completed Weight 81.818, kg, Priority: STAT, Start date: 12/08/12 6:29:00, Stop date: 12/08/12 6:29:00 morphine Sulfate 4 mg, Route: IVP, ONCE, Dosing 12/08/2012 12/08/2012 Completed Weight 81.818, kg, Priority: STAT, Start date: 12/08/12 6:29:00, Stop date: 12/08/12 6:29:00 GI cocktail 30 mL, Route: PO, Dosing Weight 12/08/2012 12/08/2012 Completed 81.818, kg, ONCE, STAT, Start date: 12/08/12 6:29:00, Stop date: 12/08/12 6:29:00 famotidine 20 mg, Route: IVP, ONCE, Dosing 12/08/2012 12/08/2012 Completed Weight 81.818, kg, Priority: STAT, Start date: 12/08/12 6:29:00, Stop date: 12/08/12 6:29:00 Saline Flush 0.9% 5 mL, Route: IVP, Drug Form: INJ, 12/08/2012 12/08/2012 Discontinued Dosing Weight 81.818, kg, PRN, PRN Line Flush, Start date: 12/08/12 6:29:00, Duration: 24 hr, Stop date: 12/09/12 6:28:00Same as: BD Posiflush Sterile influenza virus 0.5 ml, Route: IM, Drug Form: SUSP, 12/09/2012 12/10/2012 Completed vaccine, inactivated Daily, Start date: 12/09/12 9:00:00, Duration: 1 doses or times, Stop date: 12/10/12 8:59:00(Same as: Fluzone) nicotine 21 mg, 1 patch, Route: TOP, Drug 12/08/2012 12/12/2012 Discontinued form: ERFILM, Q24H, Dosing Weight 81.818, kg, Start date: 12/08/12 18:00:00, Duration: 30 day, Stop date: 01/06/13 18:00:00(Same as: Habitrol)"Remove old patch before application of new patch" normal saline 0.9% 1,000 mL, Rate: 150 ml/hr, Infuse 12/08/2012 12/09/2012 Completed IV 1,000 mL over: 6.7 hr, Route: IV, Dosing Weight 81.818 kg, Total Volume: 1,000 Liter, Start date: 12/08/12 18:50:00, Duration: 2 doses or times, Stop date: 12/09/12 8:13:00 Ativan 1 mg, 0.5 mL, Route: IV, Drug form: 12/09/2012 12/12/2012 Discontinued INJ, Q6H, Dosing Weight 81.818, kg, PRN as needed for anxiety, Start date: 12/09/12 9:36:00, Duration: 30 day, Stop date: 01/08/13 9:35:00(Same as: Ativan) acetaminophen 650 mg, 20.3 mL, Route: PO, Drug 12/08/2012 12/12/2012 Discontinued form: LIQ, Q4H, Dosing Weight 81.818, kg, PRN Pain 1-3/Temp > 100.4 F, Start date: 12/08/12 14:51:00, Duration: 30 day, Stop date: 01/07/13 14:50:00Max [id number]=0095kn/day (4 gm/day). (Same as: Tylenol) morphine Sulfate 4 mg, 2 mL, Route: IVP, Drug form: 12/08/2012 12/08/2012 Discontinued INJ, Q3H, Dosing Weight 81.818, kg, PRN Pain Score 7-10, Start date: 12/08/12 14:51:00, Duration: 30 day, Stop date: 01/07/13 14:50:00(Same as:MORPhine Sulfate) Saline Flush 0.9% 5 ml, Route: IVP, Drug Form: INJ, 12/08/2012 12/12/2012 Discontinued Dosing Weight 81.818, kg, PRN, PRN Line Flush, Start date: 12/08/12 14:51:00, Duration: 30 day, Stop date: 01/07/13 13:50:00(Same as: BD Posiflush) Sodium Chloride 0.9% 1,000 mL, Rate: 125 ml/hr, Infuse 12/08/2012 12/12/2012 Discontinued IV 1000 mL over: 8 hr, Route: IV, Dosing Weight 81.818 kg, Total Volume: 1,000, Start date: 12/08/12 14:51:00, Duration: 30 day, Stop date: 01/07/13 14:50:00 hydrALAZINE 20 mg, Route: IV, ONCE, Dosing 12/08/2012 12/08/2012 Completed Weight 81.818, kg, Start date: 12/08/12 13:33:00, Stop date: 12/08/12 13:33:00 pneumococcal 0.5 ml, Route: IM, Drug Form: INJ, 05/05/2012 05/05/2012 Completed 23-valent vaccine Start date: 05/05/12 9:00:00, Stop date: 05/05/12 9:00:00 clonidine 0.1 mg 0.1 mg, 1 tab, Route: PO, Drug 12/08/2012 12/12/2012 Discontinued oral tablet form: TAB, Q8H, Dosing Weight 81.818, kg, PRN See Nurse's Notes, Start date: 12/08/12 23:38:00, Duration: 30 day, Stop date: 01/07/13 23:37:00, for systolic blood preasure greater than 170(Same As: Catapres) Zofran 4 mg, Route: IVP, Drug form: INJ, 12/08/2012 12/08/2012 Completed ONCE, Dosing Weight 81.818, kg, Priority: STAT, Start date: 12/08/12 9:21:00, Stop date: 12/08/12 9:21:00 morphine Sulfate 2 mg, 1 mL, Route: IV, Drug form: 12/08/2012 12/10/2012 Discontinued INJ, Q3H, Dosing Weight 81.818, kg, PRN Pain Score 1-5, Start date: 12/08/12 23:39:00, Duration: 30 day, Stop date: 01/07/13 23:38:00(Same as:MORPhine Sulfate) morphine Sulfate 4 mg, 2 mL, Route: IV, Drug form: 12/08/2012 12/10/2012 Discontinued INJ, Q3H, Dosing Weight 81.818, kg, PRN Pain Score 6-10, Start date: 12/08/12 23:40:00, Duration: 30 day, Stop date: 01/07/13 23:39:00(Same as:MORPhine Sulfate) morphine Sulfate 4 mg, Route: IVP, Drug form: INJ, 12/08/2012 12/08/2012 Completed ONCE, Dosing Weight 81.818, kg, Priority: STAT, Start date: 12/08/12 9:21:00, Stop date: 12/08/12 9:21:00 Demerol HCl 50 mg, 1 mL, Route: IV, Drug form: 12/10/2012 12/12/2012 Discontinued INJ, Q4H, Dosing Weight 81.818, kg, PRN Pain, Start date: 12/10/12 15:56:00, Duration: 4 day, Stop date: 12/14/12 15:55:00(Same as: Demerol) "Use Precaution in Elderly, Seizure disorders, and Renal impairment" morphine Sulfate 2 mg, Route: IVP, ONCE, Dosing 12/08/2012 12/08/2012 Completed Weight 81.818, kg, Start date: 12/08/12 13:33:00, Stop date: 12/08/12 13:33:00 Zofran 4 mg, 2 mL, Route: IV, Drug form: 12/08/2012 12/12/2012 Discontinued INJ, Q4H, Dosing Weight 81.818, kg, PRN Nausea, Start date: 12/08/12 19:51:00, Duration: 30 day, Stop date: 01/07/13 19:50:00, as needed for nausea and vomiting(Same as: Zofran) Immunizations Vaccine Date Status influenza virus vaccine, inactivated 12/09/2012 Auth (Verified) pneumococcal 23-valent vaccine 05/05/2012 Not Done Vital Signs Most recent to oldest [Reference Range]: 1 2 3 Height 160.02 cm (12/08/2012 06:09:00) Temperature Oral [96.4-99.1 DegF] 98.2 DegF (12/12/2012 12:40:00) 99.0 DegF (12/12/2012 08:00:00) 98.4 DegF (12/12/2012 07:50:00) Systolic Blood Pressure [90-140 mmHg] 145 mmHg *HI* (12/12/2012 12:40:00) 162 mmHg *HI* (12/12/2012 08:00:00) 162 mmHg *HI* (12/12/2012 07:50:00) Diastolic Blood Pressure [60-90 mmHg] 91 mmHg *HI* (12/12/2012 12:40:00) 95 mmHg *HI* (12/12/2012 08:00:00) 95 mmHg *HI* (12/12/2012 07:50:00) Respiratory Rate [14-20 BRMIN] 18 BRMIN (12/12/2012 12:40:00) 16 BRMIN (12/12/2012 08:00:00) 16 BRMIN (12/12/2012 07:50:00) Peripheral Pulse Rate [60-100 bpm] 71 bpm (12/12/2012 12:40:00) 81 bpm (12/12/2012 08:00:00) 97 bpm (12/12/2012 07:50:00) Weight 81.818 kg (12/08/2012 06:09:00) Results CHEMISTRY Most recent to oldest [Reference Range]: 1 2 3 Sodium Lvl [135-145 mEq/L] 139 mEq/L (12/11/2012 06:34:00) 140 mEq/L (12/10/2012 07:22:00) 142 mEq/L (12/09/2012 06:06:00) Potassium Lvl [3.5-5.1 mEq/L] 3.8 mEq/L (12/11/2012:34:00) 3.6 mEq/L (12/10/2012 07:22:00) 4.5 mEq/L (12/09/2012 06:06:00) Chloride Lvl [95-109 mEq/L] 107 mEq/L (12/11/2012:34:00) 108 mEq/L (12/10/2012 07:22:00) 106 mEq/L (12/09/2012 06:06:00) CO2 [24-32 mEq/L] 20 mEq/L *LOW* (12/11/2012:34:00) 19 mEq/L *LOW* (12/10/2012 07:22:00) 22 mEq/L *LOW* (12/09/2012 06:06:00) AGAP [10.0-20.0 mEq/L] 15.8 mEq/L (12/11/2012:34:00) 16.6 mEq/L (12/10/2012 07:22:00) 18.5 mEq/L (12/09/2012 06:06:00) Creatinine Lvl [0.5-1.4 mg/dL] 0.5 mg/dL (12/11/2012 06:34:00) 0.5 mg/dL (12/10/2012 07:22:00) 0.6 mg/dL (12/09/2012 06:06:00) eGFR 112 mL/min/1.73m2 1 *NA* (12/11/2012:34:00) 112 mL/min/1.73m2 2 *NA* (12/10/2012 07:22:00) 105 mL/min/1.73m2 3 *NA* (12/09/2012 06:06:00) BUN [7-22 mg/dL] 3 mg/dL *LOW* (12/11/2012 06:34:00) 3 mg/dL *LOW* (12/10/2012 07:22:00) 7 mg/dL (12/09/2012 06:06:00) B/C Ratio [6-25] 6 (12/10/2012 07:22:00) 14 (12/08/2012 06:40:00) Glucose Lvl [70-99 mg/dL] 65 mg/dL 4 *LOW* (12/11/2012:34:00) 73 mg/dL 5 (12/10/2012 07:22:00) 93 mg/dL 6 (12/09/2012 06:06:00) Total Protein [6.4-8.4 g/dL] 5.3 g/dL *LOW* (12/10/2012 07:22:00) 7.4 g/dL (12/08/2012 06:40:00) Albumin Lvl [3.5-5.0 g/dL] 2.5 g/dL *LOW* (12/10/2012 07:22:00) 3.8 g/dL (12/08/2012 06:40:00) Globulin [2.0-4.0 g/dL] 2.8 g/dL (12/10/2012 07:22:00) 3.6 g/dL (12/08/2012 06:40:00) A/G Ratio [0.7-1.6] 0.9 (12/10/2012 07:22:00) 1.1 (12/08/2012 06:40:00) Calcium Lvl [8.5-10.5 mg/dL] 8.0 mg/dL *LOW* (12/11/2012:34:00) 7.6 mg/dL *LOW* (12/10/2012 07:22:00) 8.4 mg/dL *LOW* (12/09/2012 06:06:00) Phosphorus [2.5-4.5 mg/dL] 1.7 mg/dL *LOW* (12/10/2012 07:22:00) 3.0 mg/dL (12/09/2012 06:06:00) Magnesium Lvl [1.8-2.4 mg/dL] 1.8 mg/dL (12/10/2012 07:22:00) 1.9 mg/dL (12/09/2012 06:06:00) ALT [0-65 unit/L] 37 unit/L (12/10/2012 07:22:00) 52 unit/L (12/08/2012 06:40:00) AST [0-37 unit/L] 30 unit/L (12/10/2012 07:22:00) 58 unit/L *HI* (12/08/2012 06:40:00) Alk Phos [39-136 unit/L] 93 unit/L (12/10/2012:22:00) 89 unit/L (12/08/2012 06:40:00) Bili Total [0.2-1.3 mg/dL] 0.8 mg/dL (12/10/2012:22:00) 0.9 mg/dL (12/08/2012 06:40:00) Lipase Lvl [73-393 unit/L] 557 unit/L *HI* (12/11/2012 06:34:00) 715 unit/L *HI* (12/10/2012 07:22:00) 4603 unit/L *HI* (12/09/2012 06:06:00) CK MB [0.5-3.6 ng/mL] 0.6 ng/mL (12/08/2012 06:40:00) Troponin-I [0.00-0.40 ng/mL] <0.02 ng/mL (12/08/2012 06:40:00) CHD Risk [3.90-5.80] 2.81 *LOW* (12/09/2012 06:06:00) Chol [<=199 mg/dL] 152 mg/dL (12/09/2012 06:06:00) Trig [<=149 mg/dL] 80 mg/dL (12/09/2012 06:06:00) HDL [>=61 mg/dL] 54 mg/dL *LOW* (12/09/2012 06:06:00) LDL [<=99 mg/dL] 82 mg/dL (12/09/2012 06:06:00) 1Result Comment: The eGFR is calculated using [...] be mul tiplied by the estimated BMI. 2Result Comment: The eGFR is calculated using [...] be mul tiplied by the estimated BMI. 3Result Comment: The eGFR is calculated using [...] be mul tiplied by the estimated BMI. 4Interpretive Data: Adult reference range values reflect the clinical guidelines of the [place] [employer]. 5Interpretive Data: Adult reference range values reflect the clinical guidelines of the [place] [employer]. 6Interpretive Data: Adult reference range values reflect the clinical guidelines of the [place] [employer]. HEMATOLOGY Most recent to oldest [Reference Range]: 1 2 3 WBC [3.7-10.4 K/CMM] 7.0 K/CMM (12/11/2012 06:34:00) 8.8 K/CMM (12/10/2012 07:22:00) 9.6 K/CMM (12/09/2012 06:06:00) RBC [4.20-5.40 M/CMM] 3.87 M/CMM *LOW* (12/11/2012 06:34:00) 4.09 M/CMM *LOW* (12/10/2012 07:22:00) 4.61 M/CMM (12/09/2012 06:06:00) Hgb [12.0-16.0 g/dL] 12.8 g/dL (12/11/2012 06:34:00) 14.0 g/dL (12/10/2012 07:22:00) 15.5 g/dL (12/09/2012 06:06:00) Hct [36.0-48.0 %] 39.6 % (12/11/2012 06:34:00) 42.5 % (12/10/2012 07:22:00) 47.5 % (12/09/2012 06:06:00) MCV [81.0-99.0 fL] 102.2 fL *HI* (12/11/2012 06:34:00) 103.7 fL *HI* (12/10/2012 07:22:00) 103.1 fL *HI* (12/09/2012 06:06:00) MCH [27.0-31.0 pg] 33.1 pg *HI* (12/11/2012 06:34:00) 34.3 pg *HI* (12/10/2012 07:22:00) 33.5 pg *HI* (12/09/2012 06:06:00) MCHC [32.0-36.0 g/dL] 32.4 g/dL (12/11/2012 06:34:00) 33.1 g/dL (12/10/2012 07:22:00) 32.5 g/dL (12/09/2012 06:06:00) RDW [11.5-14.5 %] 16.1 % *HI* (12/11/2012 06:34:00) 16.0 % *HI* (12/10/2012 07:22:00) 16.4 % *HI* (12/09/2012 06:06:00) Platelet [133-450 K/CMM] 143 K/CMM (12/11/2012 06:34:00) 126 K/CMM *LOW* (12/10/2012 07:22:00) 137 K/CMM (12/09/2012 06:06:00) MPV [7.4-10.4 fL] 8.3 fL (12/11/2012 06:34:00) 8.4 fL (12/10/2012 07:22:00) 8.6 fL (12/09/2012 06:06:00) Segs [45.0-75.0 %] 74.3 % (12/11/2012 06:34:00) 80.1 % *HI* (12/10/2012 07:22:00) 83.6 % *HI* (12/09/2012 06:06:00) Lymphocytes [20.0-40.0 %] 11.6 % *LOW* (12/11/2012 06:34:00) 9.2 % *LOW* (12/10/2012 07:22:00) 9.6 % *LOW* (12/09/2012 06:06:00) Monocytes [2.0-12.0 %] 11.1 % (12/11/2012 06:34:00) 8.2 % (12/10/2012 07:22:00) 5.8 % (12/09/2012 06:06:00) Eosinophils [0.0-4.0 %] 2.5 % (12/11/2012 06:34:00) 2.3 % (12/10/2012 07:22:00) 0.7 % (12/09/2012 06:06:00) Basophils [0.0-1.0 %] 0.5 % (12/11/2012 06:34:00) 0.2 % (12/10/2012 07:22:00) 0.3 % (12/09/2012 06:06:00) Segs-Bands # [1.5-8.1 K/CMM] 5.2 K/CMM (12/11/2012 06:34:00) 7.0 K/CMM (12/10/2012 07:22:00) 8.1 K/CMM (12/09/2012 06:06:00) Lymphocytes # [1.0-5.5 K/CMM] 0.8 K/CMM *LOW* (12/11/2012 06:34:00) 0.8 K/CMM *LOW* (12/10/2012 07:22:00) 0.9 K/CMM *LOW* (12/09/2012 06:06:00) Monocytes # [0.0-0.8 K/CMM] 0.8 K/CMM (12/11/2012 06:34:00) 0.7 K/CMM (12/10/2012 07:22:00) 0.6 K/CMM (12/09/2012 06:06:00) Eosinophils # [0.0-0.5 K/CMM] 0.2 K/CMM (12/11/2012 06:34:00) 0.2 K/CMM (12/10/2012 07:22:00) 0.1 K/CMM (12/09/2012 06:06:00) Basophils # [0.0-0.2 K/CMM] 0.0 K/CMM (12/11/2012 06:34:00) 0.0 K/CMM (12/10/2012 07:22:00) 0.0 K/CMM (12/09/2012 06:06:00) Anisocyte [None Seen] 1+ *ABN* (12/09/2012 06:06:00) Polychrom [None Seen] Slight (12/09/2012 06:06:00) Plt Morph Normal (12/09/2012 06:06:00)
--- OUTSIDE RECORDS SUMMARY | 2018-01-17 19:27 | XMS REPORT | CCD ---
Author Author Auto Generated Organization [facility] Address Unknown Phone Unavailable Care Team Providers Care [facility] [employer] As[employer]er Name Role Phone Mamadou Hernandez PP Yolanda [...] 30 tab, 12/12/2012 Ordered tablet Substitution Allowed [place] 10/325 oral 1 tab, PO, Q4H, PRN, [...] Duration: 30 day, Stop date: 01/07/13 14:50:00Max edkawxsvjilmy=[id number]/day (4 gm/day). (Same as: Tylenol) morphine Sulfate [...] values reflect the clinical guidelines of the [place] [employer]. 5Interpretive Data: Adult reference range values reflect the clinical guidelines of the [place] [employer]. 6Interpretive Data: Adult reference range values reflect the clinical guidelines of the [place] [employer]. HEMATOLOGY Most recent to oldest [...]
--- OUTSIDE RECORDS SUMMARY | 2018-01-17 19:27 | XMS REPORT | CCD ---
Author Author Auto Generated Organization [facility] Address Unknown Phone Unavailable Care Team Providers Care Proof Technician Name Role Phone Mamadou Hernandez PP Morgan Avilez CP Allergies, Adverse Reactions, Alerts Substance Reaction Status NKDA Active Problem List Condition Effective Dates Status Anxiety Resolved Asthma Resolved Asthma Active Cellulitis of arm1 Active HTN - Hypertension Active Hypertension Resolved 1R upper arm Medications Medication Instructions Start Date End Date Status Zofran ODT 4 mg oral 4 mg, 1 tab, PO, Q8H, PRN, Dissolve 07/12/2012 Ordered tablet, tab under tongue, 10 tab, Nausea disintegrating and Vomiting, Substitution Allowed Dissolve tab under tongue albuterol 90 mcg/inh 2 puff, INHALATION, QID, PRN, 1 ea, 07/12/2012 Ordered inhalation aerosol wheezing, Substitution Allowed, Maintenance Librium 25 mg oral 25 mg, 1 cap, PO, TID, PRN, 10 cap, 07/12/2012 Ordered capsule as needed for symptoms of alcohol withdrawal, Substitution Allowed [place] 5/325 oral 1 tab, PO, Q4H, PRN, 15 tab, for 07/12/2012 Ordered tablet pain, Substitution Allowed, Maintenance, TAB albuterol 0.083% 2.49 mg, 3 mL, Route: NEB, Drug 07/11/2012 07/11/2012 Completed inhalation solution form: SOLN, ONCE, Start date: 07/11/12 22:07:00, Stop date: 07/11/12 22:07:00 magnesium sulfate + 2 gm, 4 mL, Route: IV, Drug form: 07/12/2012 07/12/2012 Completed Sodium Chloride 0.9% INJ, ONCE, Dosing Weight 81.818, IV 46 mL kg, Start date: 07/12/12 0:23:00, Stop date: 07/12/12 0:23:00 Xopenex 1.25 mg, Route: NEB, ONCE, Dosing 07/11/2012 07/11/2012 Deleted Weight 81.818, kg, Start date: 07/11/12 21:54:00, Stop date: 07/11/12 21:54:00 pneumococcal 0.5 ml, Route: IM, Drug Form: INJ, 05/05/2012 05/05/2012 Completed 23-valent vaccine Start date: 05/05/12 9:00:00, Stop date: 05/05/12 9:00:00 ondansetron 4 mg, 2 mL, Route: IVP, Drug form: 07/11/2012 07/11/2012 Completed INJ, ONCE, Dosing Weight 81.818, kg, Priority: STAT, Start date: 07/11/12 21:53:00, Stop date: 07/11/12 21:53:00 pantoprazole 40 mg, Route: IVP, Drug form: INJ, 07/11/2012 07/11/2012 Completed ONCE, Dosing Weight 81.818, kg, For IV push reconstitute with 10 ml 0.9% sodium chloride and push over at least 3 minutes, Priority: STAT, Start date: 07/11/12 21:53:00, Stop date: 07/11/12 21:53:00 Saline Flush 0.9% 5 mL, Route: IVP, Drug Form: INJ, 07/11/2012 07/12/2012 Discontinued Dosing Weight 81.818, kg, PRN, PRN Line Flush, Start date: 07/11/12 21:53:00, Duration: 24 hr, Stop date: 07/12/12 21:52:00 Sodium Chloride 0.9% 1,000 mL, Rate: 1,000 ml/hr, Infuse 07/11/2012 07/11/2012 Completed (Bolus) IV 1,000 mL over: 1 hr, Route: IV, Dosing Weight 81.818 kg, Total Volume: 1,000, Priority: STAT, Start date: 07/11/12 21:53:00, Duration: 1 doses or times, Stop date: 07/11/12 22:52:00 hydromorphone 1 mg, 1 mL, Route: IVP, Drug form: 07/11/2012 07/11/2012 Completed SOLN, ONCE, Dosing Weight 81.818, kg, Priority: STAT, Start date: 07/11/12 21:53:00, Stop date: 07/11/12 21:53:00 Immunizations Vaccine Date Status pneumococcal 23-valent vaccine 05/05/2012 Not Done Vital Signs Most recent to oldest [Reference Range]: 1 Weight 81.818 kg (07/11/2012 20:26:00) Results CHEMISTRY Most recent to oldest [Reference Range]: 1 Sodium Lvl [135-145 mEq/L] 141 mEq/L (07/11/2012 22:06:00) Potassium Lvl [3.5-5.1 mEq/L] 3.7 mEq/L (07/11/2012 22:06:00) Chloride Lvl [95-109 mEq/L] 108 mEq/L (07/11/2012 22:06:00) CO2 [24-32 mEq/L] 23 mEq/L *LOW* (07/11/2012 22:06:00) AGAP [10.0-20.0 mEq/L] 13.7 mEq/L (07/11/2012 22:06:00) Creatinine Lvl [0.5-1.4 mg/dL] 0.8 mg/dL (07/11/2012 22:06:00) eGFR 86 mL/min/1.73m2 1 *NA* (07/11/2012 22:06:00) BUN [7-22 mg/dL] 8 mg/dL (07/11/2012 22:06:00) B/C Ratio [6-25] 10 (07/11/2012 22:06:00) Glucose Lvl [70-99 mg/dL] 99 mg/dL 2 (07/11/2012 22:06:00) Total Protein [6.4-8.4 g/dL] 6.8 g/dL (07/11/2012 22:06:00) Albumin Lvl [3.5-5.0 g/dL] 3.4 g/dL *LOW* (07/11/2012 22:06:00) Globulin [2.0-4.0 g/dL] 3.4 g/dL (07/11/2012 22:06:00) A/G Ratio [0.7-1.6] 1.0 (07/11/2012 22:06:00) Calcium Lvl [8.5-10.5 mg/dL] 8.9 mg/dL (07/11/2012:06:00) Magnesium Lvl [1.8-2.4 mg/dL] 1.7 mg/dL *LOW* (07/11/2012:06:00) ALT [0-65 unit/L] 34 unit/L (07/11/2012:06:00) AST [0-37 unit/L] 29 unit/L (07/11/2012:06:00) Alk Phos [39-136 unit/L] 72 unit/L (07/11/2012:06:00) Bili Total [0.2-1.3 mg/dL] 0.5 mg/dL (07/11/2012:06:00) Lipase Lvl [73-393 unit/L] 821 unit/L *HI* (07/11/2012:06:00) Total CK [12-191 unit/L] 87 unit/L (07/11/2012:06:00) CK MB [0.5-3.6 ng/mL] 1.0 ng/mL (07/11/2012:06:00) CK MB Index [0.0-2.5] 1.1 (07/11/2012:06:00) Troponin-I [0.00-0.40 ng/mL] <0.02 ng/mL (07/11/2012:06:00) 1Result Comment: The eGFR is calculated using [...] be mul tiplied by the estimated BMI. 2Interpretive Data: Adult reference range values reflect the clinical guidelines of the [place] [employer]. HEMATOLOGY Most recent to oldest [Reference Range]: 1 WBC [3.7-10.4 K/CMM] 6.7 K/CMM (07/11/2012 22:06:00) RBC [4.20-5.40 M/CMM] 4.18 M/CMM *LOW* (07/11/2012 22:06:00) Hgb [12.0-16.0 g/dL] 13.9 g/dL (07/11/2012 22:06:00) Hct [36.0-48.0 %] 41.5 % (07/11/2012 22:06:00) MCV [81.0-99.0 fL] 99.3 fL *HI* (07/11/2012 22:06:00) MCH [27.0-31.0 pg] 33.1 pg *HI* (07/11/2012 22:06:00) MCHC [32.0-36.0 g/dL] 33.4 g/dL (07/11/2012 22:06:00) RDW [11.5-14.5 %] 17.4 % *HI* (07/11/2012 22:06:00) Platelet [133-450 K/CMM] 190 K/CMM (07/11/2012 22:06:00) MPV [7.4-10.4 fL] 7.8 fL (07/11/2012 22:06:00) Segs [45.0-75.0 %] 61.1 % (07/11/2012 22:06:00) Lymphocytes [20.0-40.0 %] 28.2 % (07/11/2012 22:06:00) Monocytes [2.0-12.0 %] 8.3 % (07/11/2012 22:06:00) Eosinophils [0.0-4.0 %] 1.8 % (07/11/2012 22:06:00) Basophils [0.0-1.0 %] 0.6 % (07/11/2012 22:06:00) Segs-Bands # [1.5-8.1 K/CMM] 4.1 K/CMM (07/11/2012 22:06:00) Lymphocytes # [1.0-5.5 K/CMM] 1.9 K/CMM (07/11/2012 22:06:00) Monocytes # [0.0-0.8 K/CMM] 0.6 K/CMM (07/11/2012 22:06:00) Eosinophils # [0.0-0.5 K/CMM] 0.1 K/CMM (07/11/2012 22:06:00) Basophils # [0.0-0.2 K/CMM] 0.0 K/CMM (07/11/2012 22:06:00) PT [12.0-14.7 seconds] 13.1 seconds (07/11/2012 22:06:00) INR [0.85-1.17] 0.97 3 (07/11/2012 22:06:00) PTT [22.9-35.8 seconds] 26.4 seconds 4 (07/11/2012 22:06:00) 3Interpretive Data: RECOMMENDED RANGES FOR PROTIME INR: 2.0-3.0 for most medical and surgical thromboembolic states. 2.5-3.5 for artificial heart valves and recurrent embolism. INR SHOULD BE USED ONLY FOR PATIENTS ON STABLE ANTICOAGULANT THERAPY. 4Interpretive Data: Heparin Therapeutic Range: 57 - 92 Seconds Procedures Procedures Date Related Diagnosis Gallbladder operation Hip reoperations
--- OUTSIDE RECORDS SUMMARY | 2018-01-17 19:27 | XMS REPORT | CCD ---
Author Author Auto Generated Organization [facility] Address Unknown Phone Unavailable Care Team Providers Care Balling Head Tender Name Role Phone Mamadou Hernandez PP Yolanda [...] 30 tab, 12/12/2012 Ordered tablet Substitution Allowed [place] 10/325 oral 1 tab, PO, Q4H, PRN, [...] Duration: 30 day, Stop date: 01/07/13 14:50:00Max lyurqjpybydcn=1459jd/day (4 gm/day). (Same as: Tylenol) morphine Sulfate [...] values reflect the clinical guidelines of the [place] [employer]. 5Interpretive Data: Adult reference range values reflect the clinical guidelines of the [place] [employer]. 6Interpretive Data: Adult reference range values reflect the clinical guidelines of the [place] [employer]. HEMATOLOGY Most recent to oldest [...]
--- OUTSIDE RECORDS SUMMARY | 2018-01-17 19:27 | XMS REPORT | CCD ---
Author Author Auto Generated Organization [facility] Address Unknown Phone Unavailable Care Team Providers Care Shipping Clerk Name Role Phone Mamadou Hernandez PP Yolanda [...] 30 tab, 12/12/2012 Ordered tablet Substitution Allowed [place] 10/325 oral 1 tab, PO, Q4H, PRN, [...] Duration: 30 day, Stop date: 01/07/13 14:50:00Max jphwbcylvkspe=8657ax/day (4 gm/day). (Same as: Tylenol) morphine Sulfate [...] values reflect the clinical guidelines of the [place] [employer]. 5Interpretive Data: Adult reference range values reflect the clinical guidelines of the [place] [employer]. 6Interpretive Data: Adult reference range values reflect the clinical guidelines of the [place] [employer]. HEMATOLOGY Most recent to oldest [...]
--- OUTSIDE RECORDS SUMMARY | 2018-01-17 19:28 | XMS REPORT | Encounter Summary ---
Author Organization Unknown Address [address] [place] [address] Phone [phone] Reason for Visit Right Medical Complaint Instructions 1. Impacted cerumen in right ear Discussion Note Pt is in NAD; Verbalizes understanding of all instructions with no questions at this time. Patient educational handouts: No information available. Plan of Care Patient Instructions Recommend continue Debrox over the counter as needed as per package insert. Alternate with Ibuprofen and acetaminophen every 4hrs as needed for pain Take medications as prescribed. Return to clinic or follow up with your PCP within 2-3 days if symptoms worsen as discussed. Reminders Provider Appointments None recorded. Lab None recorded. Referral None recorded. Procedures None recorded. Surgeries None recorded. Imaging None recorded. Medications Name Start Date atenolol 25 mg tablet TAKE ONE (1) TABLET(S) BY MOUTH ONCE A DAY. benzonatate 100 mg capsule TAKE ONE (1) OR TWO (2) CAPSULE(S) BY MOUTH THREE TIMES A DAY NEEDED FOR 10 DAYS. nhlvxtntvf-rvchvtywbrarm-ayeaapjb 50 mg-300 mg-40 mg capsule TAKE ONE (1) CAPSULE(S) BY MOUTH EVERY FOUR HOURS NEEDED. clonazepam clonazepam 0.5 mg tablet TAKE ONE (1) TABLET(S) BY MOUTH TWICE A DAY. dexamethasone 4 mg/mL injection solution pravastatin 40 mg tablet TAKE ONE (1) TABLET(S) BY MOUTH ONCE A DAY. prednisone 20 mg tablet Take 1 tablet twice a day by oral route with meals for 3 days. ProAir HFA ProAir HFA 90 mcg/actuation aerosol inhaler INHALE TWO (2) PUFFS BY MOUTH EVERY 4 HOURS NEEDED. promethazine-DM 6.25 mg-15 mg/5 mL syrup Take 5 mL every day by oral route at bedtime for cough. Singulair 10 mg tablet Take 1 tablet every day by oral route at bedtime for 30 days. trazodone 50 mg tablet TAKE ONE (1) TABLET(S) BY MOUTH AT BEDTIME NEEDED ONCE A DAY. valacyclovir 500 mg tablet TAKE FOUR (4) TABLET(S) BY MOUTH DIRECTED FOR 1 DAY, THEN JONATHAN AFTER ONSET OF SYMPTOMS. USE NEEDED FOR 30 DAYS. venlafaxine ER 37.5 mg capsule,extended release 24 hr TAKE ONE (1) CAPSULE(S) BY MOUTH ONCE A DAY WITH FOOD. Zithromax Z-Vern 250 mg tablet TAKE 2 TABLETS (500 MG) BY ORAL ROUTE ONCE DAILY FOR 1 DAY THEN 1 TABLET (250 MG) BY ORAL ROUTE ONCE DAILY FOR 4 DAYS Medications Administered None recorded. Vitals Height Weight BMI Blood Pressure 5 ft 3 in 170 lbs 30.1 122/72 Lab Results None recorded. Allergies Code Code System Name Reaction Severity Onset NKDA Problems Name Status Onset Date Source Candidal Vulvovaginitis Active Encounter Overweight Active Encounter Smoker Active Encounter Acute Sinusitis Active Encounter Upper Respiratory Infection Active Encounter Acute Bronchitis Active Encounter Expiratory Wheezing Active Encounter Procedures Date Name Performed by Cholecystectomy Information not available Vaccine List Vaccine Type influenza, unspecified formulation 11/25/2015 Pneumococcal Conjugate, unspecified formulation 06/24/2016 Social History Smoking Status Former Smoker Past Encounters 07/06/2016 Impacted Cerumen in Right Ear Deborah Lipscomb, [facility], [place]-C: [address] [place] [address], Ph. History of Present Illness Ear Complaint Reported By: Patient HPI: Location: right. Quality: ears feel full/plugged, muffled. Severity: continuous. Duration: ; 3 days. Onset/Timing: still present, gradual. Context: no sick contacts, no recent swimming/water in ear, no exposure to second hand smoke, no head trauma, not grinding teeth, no recent air travel. Modifying factors: does not hurt to lie on, or pull on ear, does not hurt to chew, OTC medication. Associated Symptoms: no discharge from the ears, no nose/sinus problems, no ringing in the ears, no fever, no chills, no earache, no dizziness, no vertigo, no headache, no muscle aches, hearing loss, popping noise in the ears Review of Systems:ROS as noted in the HPI Review of Systems Basic Reported By: Patient Physical Exam Adult Basic, Adult Female Complete Reported By: Patient Constitutional: General Appearance: healthy-appearing, well-nourished, well-developed. Level of Distress: NAD. Ambulation: ambulating normally Psychiatric: Mental Status: active and alert. Orientation: to time, to place, to person Oxa-Ordh-Kjnqk-Throat: Ears: no lesions on external ear, no outer ear tenderness, TMs clear, EAC ceruminous. Hearing: hearing decreased Neck: Neck: supple Lungs: Respiratory effort: no dyspnea, no tachypnea, no use of accessory muscles, no intercostal retractions. Auscultation: breath sounds normal Cardiovascular: Heart Auscultation: RRR, no murmurs Neurologic: Gait and Station: normal gait, normal station. Cranial Nerves: grossly intact. Sensation: grossly intact. Reflexes: DTRs 2+ bilaterally throughout. Coordination and Cerebellum: jiedxz-ml-cyyr intact
--- OUTSIDE RECORDS SUMMARY | 2018-01-17 19:28 | XMS REPORT | CCD ---
Author Author Auto Generated Organization [facility] Address Unknown Phone Unavailable Care Team Providers Care Spice Blender Name Role Phone Mamadou Hernandez PP Yolanda [...] 30 tab, 12/12/2012 Ordered tablet Substitution Allowed [place] 10/325 oral 1 tab, PO, Q4H, PRN, [...] Duration: 30 day, Stop date: 01/07/13 14:50:00Max jhlmutdghbmlr=7406gh/day (4 gm/day). (Same as: Tylenol) morphine Sulfate [...] values reflect the clinical guidelines of the [place] [employer]. 5Interpretive Data: Adult reference range values reflect the clinical guidelines of the [place] [employer]. 6Interpretive Data: Adult reference range values reflect the clinical guidelines of the [place] [employer]. HEMATOLOGY Most recent to oldest [...]
--- OUTSIDE RECORDS SUMMARY | 2018-01-17 19:28 | XMS REPORT | Encounter Summary ---
Author Organization Unknown Address [address] [place] [address] Phone [phone] Reason for Visit Medical Complaint; cough,chest congestion, plem,drainage, headache x 4 days Instructions 1. Upper respiratory infection promethazine-DM 6.25 mg-15 mg/5 mL syrup 2. Acute sinusitis Zithromax Z-Vern 250 mg tablet 3. Expiratory wheezing prednisone 20 mg tablet albuterol sulfate HFA 90 mcg/actuation aerosol inhaler dexamethasone 4 mg/mL injection solution 4. History of asthma Singulair 10 mg tablet 5. Smoker Discussion Note: None recorded. Patient educational handouts: No information available. Plan of Care Patient Instructions Take meds as prescribed. Advise to quit smoking. If symptoms not improve in 3 days, call clinic. If wheezing worsening overnight, seek ER. Reminders Provider Appointments None recorded. Lab None recorded. Referral None recorded. Procedures None recorded. Surgeries None recorded. Imaging None recorded. Medications Name Start Date albuterol sulfate HFA 90 mcg/actuation aerosol inhaler Inhale 2 puffs every 4 hours by inhalation route as needed for wheezing. clonazepam dexamethasone 4 mg/mL injection solution prednisone 20 mg tablet Take 1 tablet twice a day by oral route with meals for 3 days. ProAir HFA promethazine-DM 6.25 mg-15 mg/5 mL syrup Take 5 mL every day by oral route at bedtime for cough. Singulair 10 mg tablet Take 1 tablet every day by oral route at bedtime for 30 days. Zithromax Z-Vern 250 mg tablet TAKE 2 TABLETS (500 MG) BY ORAL ROUTE ONCE DAILY FOR 1 DAY THEN 1 TABLET (250 MG) BY ORAL ROUTE ONCE DAILY FOR 4 DAYS Medications Administered Name Date dexamethasone 4 mg/mL injection solution Take by injection route. [id number]:23 Vitals Height Weight BMI Blood Pressure 5 ft 3 in 162 lbs 28.7 138/88 Lab Results None recorded. Allergies Name Reaction Severity Onset NKDA Problems Name Status Onset Date Source Candidal Vulvovaginitis Active Encounter Overweight Active Encounter Smoker Active Encounter Acute Sinusitis Active Encounter Upper Respiratory Infection Active Encounter Acute Bronchitis Active Encounter Expiratory Wheezing Active Encounter Procedures Date Name Performed by Cholecystectomy Information not available Vaccine List None recorded. Social History Smoking Status Former Smoker Past Encounters 12/04/2015 Upper Respiratory Infection; Acute Sinusitis; Expiratory Wheezing; History of Asthma; Smoker Ileana Vizcarra, [employer]IE[employer]: [address] [place] [address], Ph. History of Present Illness Rtyrn-Zitqkxlvvi-Ghngpxb Reported By: Patient HPI: Location: head/sinuses. Quality: productive cough, colored phlegm, nasal/sinus congestion, feels 50 percent of normal; drainage. Duration: 4days. Severity: moderate. Onset/Timing: gradual. Context: no sick contacts, no foreign travel, non-smoker, allergies, asthma. Modifying factors: OTC medication; Proair HFA. Associated Symptoms: no shortness of breath, no change in number of pillows needed to sleep at night, no sweats, no significant weight gain, no significant weight loss, no morning cough, no sore throat, no vomiting, no diarrhea, no rash, no nausea, green sputum, wheezing Review of Systems Basic Reported By: Patient Constitutional: Constitutional: no fever Eyes: Eyes: no eye complaints Dcib-Ohaq-Vtfed-Throat: Ears: no ear complaints. Nose: nose/sinus problems. Mouth/Throat: no sore throat, no bleeding gums, no mouth complaints, no teeth problems Cardiovascular: Cardiovascular: no chest pain, no shortness of breath, no known heart murmur Respiratory: Respiratory: no shortness of breath, cough, wheezing Gastrointestinal: Gastrointestinal: no abdominal pain, no vomiting / diarrhea Genitourinary: Genitourinary: no urinary complaints, no discharge Musculoskeletal: Musculoskeletal: no muscle aches, no muscle weakness, no arthralgias/joint pain, no back pain Skin: Skin: no abnormal / changing mole, no jaundice, no rashes Neurologic: Neurologic: no loss of consciousness, no weakness, no numbness, no seizures, no dizziness, no headaches Physical Exam Adult Basic, Adult Female Complete Constitutional: General Appearance: healthy-appearing, well-nourished, well-developed, overweight. Level of Distress: NAD. Ambulation: ambulating normally Psychiatric: Mental Status: active and alert. Orientation: to time, to place, to person Eyes: Lids and Conjunctivae: non-injected, no discharge, no pallor. Pupils: PERRLA. Corneas: grossly intact. EOM: EOMI. Lens: clear. Sclerae: non-icteric. Vision: acuity grossly intact Ysg-Lykc-Jmkyd-Throat: Ears: no lesions on external ear, no outer ear tenderness, EACs clear, TMs clear. Hearing: no hearing loss. Nose: no lesions on external nose, nares patent, no septal deviation, nasal passages clear, sinus tenderness, post nasal drip. Lips, Teeth, and Gums: no mouth or lip ulcers, no bleeding gums, normal dentition. Oropharynx: moist mucous membranes, no exudates, tonsils not enlarged, erythema Neck: Neck: supple, trachea midline, no masses, FROM. Lymph Nodes: no supraclavicular LAD, anterior cervical LAD. Thyroid: no enlargement, non-tender, no nodules Lungs: Respiratory effort: no dyspnea, no tachypnea, no use of accessory muscles, no intercostal retractions. Auscultation: expiratory wheezing, rhonchi Cardiovascular: Heart Auscultation: RRR, no murmurs. Neck vessels: no carotid bruits
[2018-01-17] MEDS ORDERED: ALBUTEROL/IPRATROPIUM 3 ML NEB NEB ONE (20:30)
[2018-01-17 20:52] LABS: BASOPHILS % 0.5 % (0.0-1.0); EOSINOPHILS % 0.2 % (0.0-6.0); HEMATOCRIT 46.1 % (34.2-44.1); HEMOGLOBIN 15.7 g/dL (12.0-16.0); LYMPHOCYTES # (AUTO) 1.5 (1.0-3.2); LYMPHOCYTES % 18.2 % (18.0-39.1); MEAN CORPUSCULAR HEMOGLOBIN 32.6 pg (28-32); MEAN CORPUSCULAR HGB CONC 34.1 g/dL (31-35); MEAN CORPUSCULAR VOLUME 95.6 fL (81-99); MONOCYTES # (AUTO) 0.8 (0.2-0.8); MONOCYTES % 9.8 % (4.4-11.3); NEUTROPHILS # (AUTO) 5.8 (2.1-6.9); NEUTROPHILS % 70.9 % (38.7-80.0); PLATELET COUNT 202 x10e3/uL (140-360); RED BLOOD COUNT 4.82 x10e6/uL (3.6-5.1); RED CELL DISTRIBUTION WIDTH 14.2 % (11.7-14.4)
[2018-01-17 21:04] LABS: ALANINE AMINOTRANSFERASE 41 IU/L (0-55); ALBUMIN 4.4 g/dL (3.5-5.0); ALBUMIN/GLOBULIN RATIO 1.3 (0.8-2.0); ALKALINE PHOSPHATASE 79 IU/L (40-150); AMYLASE 87 U/L (25-125); ANION GAP 17.4 mmol/L (8-16); BLOOD UREA NITROGEN 12 mg/dL (7-26); BUN/CREATININE RATIO 14 (6-25); CALCIUM 10.2 mg/dL (8.4-10.2); CARBON DIOXIDE 21 mmol/L (22-29); CHLORIDE 104 mmol/L (98-107); CREATINE KINASE 121 IU/L (29-168); CREATININE, SERUM 0.85 mg/dL (0.57-1.11); EST GLOMERULAR FILTRATION RATE > 60 ML/MIN (60-); GLUCOSE 115 mg/dL (74-118); LIPASE 452 U/L (8-78); POTASSIUM 3.4 mmol/L (3.5-5.1); SODIUM 139 mmol/L (136-145)
[2018-01-17 21:07] LABS: INR 0.88; PROTHROMBIN TIME 12.8 seconds (11.9-14.5)
[2018-01-17 21:12] LABS: BILIRUBIN,URINE NEGATIVE (NEGATIVE); CLARITY,URINE CLEAR (CLEAR); COLOR,URINE YELLOW (YELLOW); KETONES,URINE NEGATIVE (NEGATIVE); LEUKOCYTE ESTERASE ,URINE NEGATIVE (NEGATIVE); NITRITE,URINE NEGATIVE (NEGATIVE); PROTEIN,URINE DIPSTICK 1+ (NEGATIVE); URINE UROBILINOGEN 0.2 mg/dL (0.2 - 1)
[2018-01-17 21:13] LABS: EPITHELIAL CELLS,URINE MANY /LPF
[2018-01-17 21:14] LABS: RBC,URINE 0-5 /HPF (0-5)
--- NOTE | 2018-01-17 21:14 | Diagnostic Imaging Report ---
EXAMINATION: CHEST SINGLE (PORTABLE) INDICATION: Chest pain, shortness of breath, spasms COMPARISON: Chest x-ray 06/22/2016 FINDINGS: AP view TUBES and LINES: None. LUNGS: Lungs are well inflated. Lungs are clear. There is no evidence of pneumonia or pulmonary edema. PLEURA: No pleural effusion or pneumothorax. HEART AND MEDIASTINUM: The cardiomediastinal silhouette is unremarkable. BONES AND SOFT TISSUES: No acute osseous lesion. Breast implants. UPPER ABDOMEN: No free air under the diaphragm. Cholecystectomy clips. IMPRESSION: No acute thoracic abnormality. Signed by: DR. Agapito Nettles MD on 01/17/2018 9:10 PM
[2018-01-17 21:15] LABS: BACTERIA,URINE FEW /HPF
[2018-01-17 21:16] LABS: YEAST,URINE FEW
[2018-01-17] MEDS ORDERED: HYDROMORPHONE 2MG/ML 2 MG/ML ML ONE (21:18)
[2018-01-17] MEDS ORDERED: SODIUM CHLORIDE 0.9% 1000ML 1,000 ML ONE (21:19)
[2018-01-17] MEDS ORDERED: HYDROMORPHONE 1MG/1ML INJ IV PRN (21:30)
[2018-01-17] MEDS ORDERED: HYDROMORPHONE 2MG/ML 2 MG/ML ML IV PRN (21:30)
[2018-01-17] MEDS ORDERED: SODIUM CHLORIDE 0.9% 1000ML 1,000 ML IV SCH (21:30)
[2018-01-17 21:34] LABS: B-TYPE NATRIURETIC PEPTIDE2 10.7 pg/mL (0-100)
--- NOTE | 2018-01-17 22:20 | Diagnostic Imaging Report ---
EXAM: CT Abdomen and Pelvis WITH contrast INDICATION: Chest pain, shortness of breath, mid, chest, epigastric, and mid back pain for 4 days. Pancreatitis, rule out pseudocyst or fluid collection. COMPARISON: CT 11/10/2013 and 06/23/2016 TECHNIQUE: Abdomen and pelvis were scanned utilizing a multidetector helical scanner from the lung base to the pubic symphysis after administration of IV contrast. Coronal and sagittal reformations were obtained. Routine protocol was performed. Scan was performed during portal venous phase. IV CONTRAST: 100 mL of Isovue-370 ORAL CONTRAST: Water COMPLICATIONS: None RADIATION DOSE: Total DLP: 501.9 mGy*cm Estimated effective dose: (DLP x 0.015 x size factor) mSv CTDIvol has been reviewed. It is below the limits set by the Radiation Protocol Committee (RPC). FINDINGS: LINES and TUBES: None. LOWER THORAX: Lingular atelectasis or scarring. Partially visualized bilateral breast implants. HEPATOBILIARY: Diffuse hypoattenuation of the liver compatible with steatosis. No focal hepatic lesions. No biliary ductal dilation. GALLBLADDER: Cholecystectomy. SPLEEN: No splenomegaly. Calcified granuloma. PANCREAS: Peripancreatic stranding predominantly in the head and uncinate process. No drainable fluid collections. ADRENALS: No adrenal nodules KIDNEYS/URETERS: Kidneys enhance symmetrically. No hydronephrosis. No cystic or solid mass lesions. No stones. GI TRACT: No abnormal distention, wall thickening, or evidence of bowel obstruction. Appendix is normal. PELVIC ORGANS/BLADDER: Bilateral fallopian tube closure devices. Metallic streak artifacts from a right hip prosthesis partially limits evaluation of the pelvis. Otherwise, unremarkable. LYMPH NODES: No lymphadenopathy. VESSELS: Portal and superior mesenteric veins are patent. Narrowing with poor opacification of a short segment of the splenic vein near the tail but otherwise patent. This appears distant from the current pancreatic inflammation. Mild atherosclerotic calcifications. No abdominal aortic aneurysm. PERITONEUM / RETROPERITONEUM: No free air or fluid. BONES: Worsened L5-S1 spondylolysis with ankylosis. Grade 2 anterolisthesis of L5 on S1. Right hip prosthesis. SOFT TISSUES: Unremarkable. IMPRESSION: Acute pancreatitis without drainable fluid collections. Signed by: DR. Agapito Nettles MD on 01/17/2018 10:17 PM
[2018-01-17] MEDS ORDERED: SODIUM CHLORIDE 0.9% 50ML 50 ML ONE (22:42)
[2018-01-17] MEDS ORDERED: IOPAMIDOL 370 MG/ML 200 ML INFUS..BTL INJ ONE (22:43)
[2018-01-17] MEDS ORDERED: HYDRALAZINE HCL 20 MG/ML VIAL IV STA (23:08)
[2018-01-17 23:45] VITALS: BP 157/101
== END 2018-01-17 23:51 | disposition home or self-care (01) ==
LOC: ER 19:22
DX: R10.13 Epigastric pain (principal); R11.0 Nausea; K86.0 Alcohol-induced chronic pancreatitis
CPT/HCPCS: 36415; 71045; 74177; 80053; 81001; 82150; 82550; 82553; 83605; 83690; 83880; 84484; 85025; 85610; 85730; 93005; 99284; J0360; J1170; J7030; Q9967

== ENCOUNTER 2018-01-18 18:09 | Inpatient (IN) | payer SELFPAY ==
[~2018-01-18] VITALS: Ht 160 cm; Wt 81.3 kg
--- OUTSIDE RECORDS SUMMARY | 2018-01-18 18:15 | XMS REPORT ---
Author Author [facility] Address Unknown Phone Unavailable Care Team Providers Care Inspector Chief Name Role Phone Elizabeth MATTA Unavailable Unavailable Problems This patient has no known problems. Allergies, Adverse Reactions, Alerts This patient has no known allergies or adverse reactions. Medications This patient has no known medications. Results Test Description Test Time Test Comments Text Results Atomic Results Result Comments CT ABDOMEN/PELVIS W 2018-01-17 22:01:00 [place] [address] Patient Name: DEONDRE HICKS MR #: [id number] : 1960 Age/Sex: 57/F Req #: [id number] [facility] Physician: Ordered by: MICHAEL MATTA MD Report #: [id number] Location: ER Room/Bed: Procedure: [id number] CT/CT ABDOMEN/PELVIS W Exam Date: 01/17/18 Exam Time: 2137 REPORT STATUS: Signed EXAM: CT Abdomen and Pelvis WITH contrast INDICATI ON: Chest pain, shortness of breath, mid, chest, epigastric, and mid back pain for 4 days. Pancreatitis, rule out pseudocyst or fluid collection. COMPARISON: CT 11/10/2013 and 06/23/2016 TECHNIQUE: Abdomen and pelvis were scanned utilizing a multidetector helical scanner from the lung base to the pubic symphysis after administration of IV contrast. Coronal and sagittal reformations were obtained. Routine protocol was performed. Scan was performed during portal venous phase. IV CONTRAST: 100 mL of Isovue-370 ORAL CONTRAST: Water COMPLICATIONS: None RADIATION DOSE: Total DLP: 501.9 mGy*cm Estimated effective dose: (DLP x 0.015 x size factor) mSv CTDIvol has been reviewed. It is below the limits set by the Radiation Protocol Committee (RPC). FINDINGS: LINES and TUBES: None. LOWER THORAX: Lingular atelectasis or scarring. Partially visualized bilateral breast implants. HEPATOBILIARY: Diffuse hypoattenuation of the liver compatible with steatosis. No focal hepatic lesions. No biliary ductal dilation. GALLBLADDER: Cholecystectomy. SPLEEN: No splenomegaly. Calcified granuloma. PANCREAS: Peripancreatic stranding predominantly in the head and uncinate process. No drainable fluid collections. ADRENALS: No adrenal nodules KIDNEYS/URETERS: Kidneys enhance symmetrically. No hydronephrosis. No cystic or solid mass lesions. No stones. GI TRACT: No abnormal distention, wall thickening, or evidence of bowel obstruction. Appendix is normal. PELVIC ORGANS/BLADDER: Bilateral fallopian tube closure devices. Metallic streak artifacts from a right hip prosthesis partially limits evaluation of the pelvis. Otherwise, unremarkable. LYMPH NODES: No lymphadenopathy. VESSELS: Portal and superior mesenteric veins are patent. Narrowing with poor opacification of a short segment of the splenic vein near the tail but otherwise patent. This valentino ears distant from the current pancreatic inflammation. Mild atherosclerotic calcifications. No abdominal aortic aneurysm. PERITONEUM / RETROPERITONEUM: No free air or fluid. BONES: Worsened L5-S1 spondylolysis with ankylosis. Grade 2 anterolisthesis of L5 on S1. Right hip prosthesis. SOFT TISSUES: Unremarkable. IMPRESSION: Acute pancreatitis without drainable fluid collections. Signed by: DR. Agapito Zaldivar MD on 01/17/2018 10:17 PM Dictated By: AGAPITO ZALDIVAR MD 16 Transcribed By: JUAN CARLOS on 01/17/182216 COPY TO: MICHAEL MATTA MD CHEST SINGLE (PORTABLE) 2018-01-17 21:09:00 [place] [address] Patient Name: DEONDRE HICKS MR #: [id number] : 1960 Age/Sex: 57/F Req #: [id number] [facility] Physician: Ordered by: MICHAEL MATTA MD Report #: [id number] Location: ER Room/Bed: Procedure: [id number] DX/CHEST SINGLE (PORTABLE) Exam Date: 01/17/18 Exam Time: 2039 REPORT STATUS: Signed EXAMINATION: CHEST SINGLE (PORTABLE) INDIC ATION: Chest pain, shortness of breath, spasms COMPARISON: Chest x- ray 06/22/2016 FINDINGS: AP view TUBES and LINES: None. LUNGS: Lungs are well inflated. Lungs are clear. There is no evidence of pneumonia or pulmonary edema. PLEURA: No pleural effusion or pneumothorax. HEART AND MEDIASTINUM: The cardiomediastinal silhouette is unremarkable. BONES AND SOFT TISSUES: No acute osseous lesion. Breast implants. UPPER ABDOMEN: No free air under the diaphragm. Cholecystectomy clips. IMPRESSION: No acute thoracic abnormality. Signed by: DR. Agapito Zaldivar MD on 01/17/2018 9:10 PM Dictated By: AGAPITO ZALDIVAR MD 09 Transcribed By: JUAN CARLOS on 01/17/182109 COPY TO: MICHAEL MATTA MD
[2018-01-18] MEDS ORDERED: SODIUM CHLORIDE 0.9% 1000ML 1,000 ML IV STA (18:50)
[2018-01-18 19:08] LABS: BASOPHILS % 0.4 % (0.0-1.0); EOSINOPHILS % 0.1 % (0.0-6.0); HEMATOCRIT 46.6 % (34.2-44.1); HEMOGLOBIN 15.9 g/dL (12.0-16.0); LYMPHOCYTES # (AUTO) 1.1 (1.0-3.2); LYMPHOCYTES % 10.6 % (18.0-39.1); MEAN CORPUSCULAR HEMOGLOBIN 32.7 pg (28-32); MEAN CORPUSCULAR HGB CONC 34.1 g/dL (31-35); MEAN CORPUSCULAR VOLUME 95.9 fL (81-99); MONOCYTES # (AUTO) 0.7 (0.2-0.8); MONOCYTES % 6.6 % (4.4-11.3); NEUTROPHILS # (AUTO) 8.6 (2.1-6.9); NEUTROPHILS % 81.8 % (38.7-80.0); PLATELET COUNT 156 x10e3/uL (140-360); RED BLOOD COUNT 4.86 x10e6/uL (3.6-5.1); RED CELL DISTRIBUTION WIDTH 14.4 % (11.7-14.4)
[2018-01-18] MEDS ORDERED: FAMOTIDINE 20 MG/2 ML VIAL IV ONE (19:30)
[2018-01-18] MEDS ORDERED: ONDANSETRON HCL INJ 2 MG/ML VIAL IV ONE (19:30)
[2018-01-18] MEDS ORDERED: HYDROMORPHONE 2MG/ML 2 MG/ML ML IV ONE (19:30)
[2018-01-18 19:34] LABS: ALANINE AMINOTRANSFERASE 31 IU/L (0-55); ALBUMIN 4.3 g/dL (3.5-5.0); ALBUMIN/GLOBULIN RATIO 1.2 (0.8-2.0); ALKALINE PHOSPHATASE 74 IU/L (40-150); AMYLASE 377 U/L (25-125); ANION GAP 18.7 mmol/L (8-16); BLOOD UREA NITROGEN 8 mg/dL (7-26); BUN/CREATININE RATIO 10 (6-25); CALCIUM 10.3 mg/dL (8.4-10.2); CARBON DIOXIDE 19 mmol/L (22-29); CHLORIDE 102 mmol/L (98-107); CREATININE, SERUM 0.78 mg/dL (0.57-1.11); EST GLOMERULAR FILTRATION RATE > 60 ML/MIN (60-); GLUCOSE 141 mg/dL (74-118); POTASSIUM 3.7 mmol/L (3.5-5.1); SODIUM 136 mmol/L (136-145)
[2018-01-18 19:50] LABS: CLARITY,URINE CLOUDY (CLEAR); COLOR,URINE YELLOW (YELLOW); KETONES,URINE 2+ (NEGATIVE); LEUKOCYTE ESTERASE ,URINE NEGATIVE (NEGATIVE); NITRITE,URINE NEGATIVE (NEGATIVE); PROTEIN,URINE DIPSTICK 2+ (NEGATIVE); URINE UROBILINOGEN 0.2 mg/dL (0.2 - 1)
[2018-01-18 19:51] LABS: BILIRUBIN,URINE 1+ (NEGATIVE)
[2018-01-18] MEDS ORDERED: HYDRALAZINE HCL 20 MG/ML VIAL IV STA (19:52)
[2018-01-18 20:00] LABS: LIPASE 2037 U/L (8-78)
[2018-01-18] MEDS ORDERED: ALBUTEROL/IPRATROPIUM 3 ML NEB NEB ONE (20:00)
[2018-01-18 20:13] LABS: WBC,URINE (MAN) 0-5 /HPF (0-5)
[2018-01-18 20:15] LABS: BACTERIA,URINE MODERATE /HPF; EPITHELIAL CELLS,URINE MODERATE /LPF; YEAST,URINE FEW
[2018-01-18] MEDS: HYDRALAZINE HCL 20 MG/ML VIAL IV PRN (20:15)
[2018-01-18] MEDS ORDERED: PANTOPRAZOLE 40 MG 10ML VIAL IV STA (20:18)
[2018-01-18] MEDS ORDERED: ONDANSETRON HCL INJ 2 MG/ML VIAL IV PRN (20:30)
[2018-01-18] MEDS ORDERED: HYDROMORPHONE 1MG/1ML INJ IV PRN (20:30)
[2018-01-18] MEDS ORDERED: PROMETHAZINE HCL (IM) 25 MG/ML VIAL IV PRN (20:30)
[2018-01-18] MEDS ORDERED: SODIUM CHLORIDE 0.9% 1000ML 1,000 ML IV ONE (21:00)
[2018-01-18] MEDS ORDERED: SODIUM CHLORIDE 0.9% 50ML 50 ML ONE (21:34)
[2018-01-18] MEDS: D5.45%NS/KCL 20MEQ 1,000 ML IV SCH (22:24)
[2018-01-18 22:43] LABS: CHOL/HDL RATIO 2.9 (3.0-3.6)
[2018-01-18] MEDS ORDERED: HYDROMORPHONE 2MG/ML 2 MG/ML ML IV PRN (23:00)
[2018-01-18] MEDS: HYDROMORPHONE 2MG/ML 2 MG/ML ML IV PRN (23:28)
[2018-01-19] MEDS: HYDROMORPHONE 2MG/ML 2 MG/ML ML IV PRN ×7 (03:11→21:49)
[2018-01-19] MEDS ORDERED: CLONAZEPAM0.5 MG PO (03:24)
[2018-01-19] MEDS ORDERED: ATENOLOL50 MG PO (03:24)
[2018-01-19] MEDS ORDERED: VENLAFAXINE HCL75 M1 PO (03:24)
[2018-01-19 04:39] LABS: BASOPHILS % 0.3 % (0.0-1.0); EOSINOPHILS % 0.1 % (0.0-6.0); HEMATOCRIT 43.9 % (34.2-44.1); HEMOGLOBIN 14.8 g/dL (12.0-16.0); LYMPHOCYTES # (AUTO) 0.9 (1.0-3.2); MEAN CORPUSCULAR HEMOGLOBIN 32.7 pg (28-32); MEAN CORPUSCULAR HGB CONC 33.7 g/dL (31-35); MEAN CORPUSCULAR VOLUME 97.1 fL (81-99); MONOCYTES # (AUTO) 0.8 (0.2-0.8); MONOCYTES % 6.4 % (4.4-11.3); NEUTROPHILS % 84.8 % (38.7-80.0); PLATELET COUNT 131 x10e3/uL (140-360); RED BLOOD COUNT 4.52 x10e6/uL (3.6-5.1); RED CELL DISTRIBUTION WIDTH 14.6 % (11.7-14.4)
[2018-01-19] MEDS: HYDRALAZINE HCL 20 MG/ML VIAL IV PRN ×2 (04:42→18:37)
[2018-01-19 04:59] LABS: ALANINE AMINOTRANSFERASE 24 IU/L (0-55); ALBUMIN 3.8 g/dL (3.5-5.0); ALBUMIN/GLOBULIN RATIO 1.1 (0.8-2.0); ALKALINE PHOSPHATASE 65 IU/L (40-150); AMYLASE 238 U/L (25-125); ANION GAP 15.2 mmol/L (8-16); BLOOD UREA NITROGEN < 5 mg/dL (7-26); BUN/CREATININE RATIO 7 (6-25); CALCIUM 9.1 mg/dL (8.4-10.2); CARBON DIOXIDE 20 mmol/L (22-29); CHLORIDE 101 mmol/L (98-107); EST GLOMERULAR FILTRATION RATE > 60 ML/MIN (60-); GLUCOSE 165 mg/dL (74-118); LIPASE 1007 U/L (8-78); POTASSIUM 3.2 mmol/L (3.5-5.1); SODIUM 133 mmol/L (136-145)
[2018-01-19] MEDS ORDERED: POTASSIUM CHLORIDE 20 MEQ TAB CR PO STA (05:33)
[2018-01-19] MEDS: D5.45%NS/KCL 20MEQ 1,000 ML IV SCH ×3 (08:00→23:37)
[2018-01-19] MEDS: PANTOPRAZOLE 40 MG 10ML VIAL IV SCH (08:35)
[2018-01-19 17:27] VITALS: BP 153/93
[2018-01-19] MEDS ORDERED: INFLUENZA VIRUS VAC SPLIT INJ 0.5 ML SYR IM ONE (18:45)
[2018-01-19] MEDS ORDERED: PNEUMOCOCCAL VACCINE POLYVALENT 23 MCG/0.5 ML VIAL IM ONE (18:45)
[2018-01-19 20:00] VITALS: BP 135/82
[2018-01-20] VITALS (7 sets, daily range): BP systolic 120–157; BP diastolic 75–89
[2018-01-20] MEDS: HYDROMORPHONE 2MG/ML 2 MG/ML ML IV PRN ×8 (00:50→22:58)
[2018-01-20] MEDS: LACTATED RINGER'S 1,000 ML IV SCH ×6 (00:50→20:38)
[2018-01-20 06:15] LABS: BASOPHILS % 0.1 % (0.0-1.0); HEMATOCRIT 41.5 % (34.2-44.1); HEMOGLOBIN 13.8 g/dL (12.0-16.0); LYMPHOCYTES # (AUTO) 1.1 (1.0-3.2); LYMPHOCYTES % 6.6 % (18.0-39.1); MEAN CORPUSCULAR HEMOGLOBIN 32.8 pg (28-32); MEAN CORPUSCULAR HGB CONC 33.3 g/dL (31-35); MEAN CORPUSCULAR VOLUME 98.6 fL (81-99); MONOCYTES # (AUTO) 1.2 (0.2-0.8); MONOCYTES % 7.5 % (4.4-11.3); NEUTROPHILS # (AUTO) 13.6 (2.1-6.9); NEUTROPHILS % 84.8 % (38.7-80.0); PLATELET COUNT 124 x10e3/uL (140-360); RED BLOOD COUNT 4.21 x10e6/uL (3.6-5.1); RED CELL DISTRIBUTION WIDTH 14.8 % (11.7-14.4)
[2018-01-20 06:30] LABS: ALANINE AMINOTRANSFERASE 15 IU/L (0-55); ALBUMIN 2.8 g/dL (3.5-5.0); ALBUMIN/GLOBULIN RATIO 0.8 (0.8-2.0); ALKALINE PHOSPHATASE 64 IU/L (40-150); AMYLASE 107 U/L (25-125); ANION GAP 11.1 mmol/L (8-16); BLOOD UREA NITROGEN < 5 mg/dL (7-26); CALCIUM 9.2 mg/dL (8.4-10.2); CARBON DIOXIDE 25 mmol/L (22-29); CHLORIDE 101 mmol/L (98-107); CREATININE, SERUM 0.71 mg/dL (0.57-1.11); EST GLOMERULAR FILTRATION RATE > 60 ML/MIN (60-); GLUCOSE 129 mg/dL (74-118); LIPASE 274 U/L (8-78); POTASSIUM 4.1 mmol/L (3.5-5.1); SODIUM 133 mmol/L (136-145)
[2018-01-20 06:33] LABS: BUN/CREATININE RATIO 7 (6-25)
[2018-01-20] MEDS: PANTOPRAZOLE 40 MG 10ML VIAL IV SCH (08:51)
--- NOTE | 2018-01-20 11:32 | Diagnostic Imaging Report ---
PROCEDURE: CHEST SINGLE (PORTABLE) COMPARISON: Patients [facility], DX, CHEST SINGLE (PORTABLE), 01/17/2018, 20:42. INDICATIONS: COUGH, CONGESTION FINDINGS: LUNGS: No consolidations or edema. PLEURA: No effusions or pneumothorax. HEART & MEDIASTINUM: The heart is within normal size-limits. BONES: No acute bony abnormality. SOFT TISSUES: Calcified bilateral breast implants. CONCLUSION: No acute thoracic abnormality. Juan Carlos Pate D.O. Dictated by: Juan Carlos Pate D.O. on 01/20/2018 at 11:42 Electronically approved by: Juan Calros Pate D.O. on 01/20/2018 at 11:42
[2018-01-20] MEDS: ALBUTEROL/IPRATROPIUM 3 ML NEB NEB SCH ×2 (14:20→20:20)
[2018-01-21] VITALS (7 sets, daily range): BP systolic 105–149; BP diastolic 68–90
[2018-01-21] MEDS: LACTATED RINGER'S 1,000 ML IV SCH ×6 (00:45→20:00)
[2018-01-21] MEDS: ALBUTEROL/IPRATROPIUM 3 ML NEB NEB SCH ×4 (01:00→20:05)
[2018-01-21] MEDS: HYDROMORPHONE 2MG/ML 2 MG/ML ML IV PRN ×7 (02:00→21:57)
[2018-01-21 06:13] LABS: BASOPHILS % 0.2 % (0.0-1.0); EOSINOPHILS % 0.3 % (0.0-6.0); HEMATOCRIT 34.1 % (34.2-44.1); HEMOGLOBIN 11.3 g/dL (12.0-16.0); LYMPHOCYTES # (AUTO) 1.1 (1.0-3.2); LYMPHOCYTES % 10.5 % (18.0-39.1); MEAN CORPUSCULAR HEMOGLOBIN 32.8 pg (28-32); MEAN CORPUSCULAR HGB CONC 33.1 g/dL (31-35); MEAN CORPUSCULAR VOLUME 99.1 fL (81-99); MONOCYTES # (AUTO) 1.2 (0.2-0.8); MONOCYTES % 11.4 % (4.4-11.3); NEUTROPHILS # (AUTO) 7.9 (2.1-6.9); NEUTROPHILS % 76.9 % (38.7-80.0); PLATELET COUNT 93 x10e3/uL (140-360); RED BLOOD COUNT 3.44 x10e6/uL (3.6-5.1); RED CELL DISTRIBUTION WIDTH 14.6 % (11.7-14.4)
[2018-01-21 06:34] LABS: ANION GAP 13.3 mmol/L (8-16); BLOOD UREA NITROGEN < 5 mg/dL (7-26); CARBON DIOXIDE 26 mmol/L (22-29); CHLORIDE 96 mmol/L (98-107); CREATININE, SERUM 0.59 mg/dL (0.57-1.11); EST GLOMERULAR FILTRATION RATE > 60 ML/MIN (60-); GLUCOSE 102 mg/dL (74-118); POTASSIUM 3.3 mmol/L (3.5-5.1); SODIUM 132 mmol/L (136-145)
[2018-01-21 06:35] LABS: BUN/CREATININE RATIO 8 (6-25)
[2018-01-21] MEDS: PANTOPRAZOLE 40 MG 10ML VIAL IV SCH (08:40)
[2018-01-21] MEDS ORDERED: ACETAMINOPHEN 1000 MG/100 ML IV STA (10:01)
[2018-01-21] MEDS ORDERED: ACETAMINOPHEN 1000 MG/100 ML IV PRN (10:15)
[2018-01-21] MEDS ORDERED: POTASSIUM CHLORIDE 20MEQ/100ML 100 ML IV ONE (10:45)
[2018-01-21] MEDS ORDERED: GADOBENATE DIMEGLUMINE 1 ML IV ONE (11:15)
[2018-01-21] MEDS ORDERED: LORAZEPAM INJ 2 MG/ML VIAL IV ONE (14:45)
--- NOTE | 2018-01-21 18:05 | Diagnostic Imaging Report ---
EXAM: MRI MRCP O DATE: 01/21/2018 11:03 AM INDICATION: Elevated CA19-9 COMPARISON: CT dated 01/17/2018 TECHNIQUE: Multiplanar multisequential MRCP series were obtained with (15 mL of MultiHance) and without administration of intravenous contrast. FINDINGS: Limited study due to motion artifact. Lower thorax: Bibasilar dependent atelectasis and small pleural effusions, left more than right. Bilateral breast implants. Abdomen: Diffuse loss of signal in the liver parenchyma on out of phase images, compatible with steatosis. No hepatic lesion visualized. Gallbladder is surgically absent. Common bile duct measures up to 1 cm without evidence of filling defects. Splenomegaly measuring 13.1 cm. Persistent peripancreatic inflammation, especially in the distal body and tail. There is an area of approximately 3.3 x 2.9 cm T1 hyperintensity in the pancreatic body (series 3, image 39) without evidence of enhancement on postcontrast subtraction images, suspicious for hemorrhage. There is markedly decreased enhancement of the pancreas in this area on postcontrast images. No pancreatic ductal dilatation. Adrenal glands and kidneys are unremarkable. Posterior left renal superior pole cortical scarring. Visualized bowel loops are unremarkable. No evidence of bowel obstruction. Trace abdominal ascites. IMPRESSION: Very limited study due to artifacts. Increased peripancreatic body inflammation with an area of decreased enhancement and increased T1 signal, concerning for necrotizing pancreatitis with hemorrhage. Trace bilateral pleural effusions with adjacent atelectasis, left greater than right. Findings discussed with Nurse Trimble at 5:55 PM, on 01/21/2018 and that she will notify Dr. Hilton immediately. Signed by: Dr. Xavi Parker MD on 01/21/2018 6:01 PM
[2018-01-22] VITALS (8 sets, daily range): BP systolic 120–164; BP diastolic 61–81
[2018-01-22] MEDS: LACTATED RINGER'S 1,000 ML IV SCH ×7 (00:07→23:34)
[2018-01-22] MEDS: HYDROMORPHONE 2MG/ML 2 MG/ML ML IV PRN ×7 (01:07→21:02)
[2018-01-22] MEDS: ALBUTEROL/IPRATROPIUM 3 ML NEB NEB SCH ×4 (01:25→20:00)
[2018-01-22] MEDS: PANTOPRAZOLE 40 MG 10ML VIAL IV SCH (08:39)
[2018-01-23] VITALS (8 sets, daily range): BP systolic 127–179; BP diastolic 75–89
[2018-01-23] MEDS: HYDROMORPHONE 2MG/ML 2 MG/ML ML IV PRN ×8 (00:03→21:36)
[2018-01-23] MEDS ORDERED: POTASSIUM CHLORIDE 20 MEQ TAB CR PO STA (00:06)
[2018-01-23] MEDS: ALBUTEROL/IPRATROPIUM 3 ML NEB NEB SCH ×4 (01:50→19:00)
[2018-01-23] MEDS: LACTATED RINGER'S 1,000 ML IV SCH ×2 (03:40→07:14)
[2018-01-23 06:03] LABS: BASOPHILS % 0.4 % (0.0-1.0); EOSINOPHILS # (AUTO) 0.1 (0.0-0.4); EOSINOPHILS % 1.4 % (0.0-6.0); HEMATOCRIT 31.7 % (34.2-44.1); HEMOGLOBIN 10.5 g/dL (12.0-16.0); LYMPHOCYTES % 21.3 % (18.0-39.1); MEAN CORPUSCULAR HEMOGLOBIN 32.7 pg (28-32); MEAN CORPUSCULAR HGB CONC 33.1 g/dL (31-35); MEAN CORPUSCULAR VOLUME 98.8 fL (81-99); MONOCYTES # (AUTO) 0.8 (0.2-0.8); MONOCYTES % 16.6 % (4.4-11.3); NEUTROPHILS # (AUTO) 2.9 (2.1-6.9); NEUTROPHILS % 59.9 % (38.7-80.0); PLATELET COUNT 144 x10e3/uL (140-360); RED BLOOD COUNT 3.21 x10e6/uL (3.6-5.1); RED CELL DISTRIBUTION WIDTH 14.9 % (11.7-14.4)
[2018-01-23 06:31] LABS: ANION GAP 11.1 mmol/L (8-16); BLOOD UREA NITROGEN < 5 mg/dL (7-26); BUN/CREATININE RATIO 9 (6-25); CALCIUM 9.1 mg/dL (8.4-10.2); CARBON DIOXIDE 28 mmol/L (22-29); CHLORIDE 100 mmol/L (98-107); CREATININE, SERUM 0.55 mg/dL (0.57-1.11); EST GLOMERULAR FILTRATION RATE > 60 ML/MIN (60-); GLUCOSE 106 mg/dL (74-118); LIPASE 89 U/L (8-78); POTASSIUM 3.1 mmol/L (3.5-5.1); SODIUM 136 mmol/L (136-145)
[2018-01-23] MEDS: PANTOPRAZOLE 40 MG 10ML VIAL IV SCH (09:27)
[2018-01-23] MEDS ORDERED: POTASSIUM CHLORIDE 20MEQ/15ML UDC PO NR ×2 (09:45→11:45)
[2018-01-23] MEDS ORDERED: FUROSEMIDE INJ 10 MG/ML 4 ML VIAL IV NR (10:00)
[2018-01-23] MEDS ORDERED: POTASSIUM CHLORIDE 20 MEQ TAB CR PO ONE (13:30)
[2018-01-24] VITALS: BP 152/74
[2018-01-24] MEDS: ALBUTEROL/IPRATROPIUM 3 ML NEB NEB SCH ×3 (01:00→13:00)
[2018-01-24] MEDS: HYDROMORPHONE 2MG/ML 2 MG/ML ML IV PRN ×3 (01:59→12:46)
[2018-01-24 04:00] VITALS: BP 145/87
[2018-01-24 06:08] LABS: BASOPHILS % 0.7 % (0.0-1.0); EOSINOPHILS # (AUTO) 0.1 (0.0-0.4); EOSINOPHILS % 2.7 % (0.0-6.0); HEMATOCRIT 33.1 % (34.2-44.1); LYMPHOCYTES # (AUTO) 1.1 (1.0-3.2); LYMPHOCYTES % 25.3 % (18.0-39.1); MEAN CORPUSCULAR HEMOGLOBIN 32.4 pg (28-32); MEAN CORPUSCULAR HGB CONC 33.2 g/dL (31-35); MEAN CORPUSCULAR VOLUME 97.4 fL (81-99); MONOCYTES # (AUTO) 0.9 (0.2-0.8); MONOCYTES % 19.7 % (4.4-11.3); NEUTROPHILS # (AUTO) 2.3 (2.1-6.9); NEUTROPHILS % 50.9 % (38.7-80.0); PLATELET COUNT 174 x10e3/uL (140-360); RED CELL DISTRIBUTION WIDTH 14.8 % (11.7-14.4)
[2018-01-24 06:28] LABS: ANION GAP 12.5 mmol/L (8-16); BLOOD UREA NITROGEN < 5 mg/dL (7-26); BUN/CREATININE RATIO 8 (6-25); CALCIUM 9.2 mg/dL (8.4-10.2); CARBON DIOXIDE 26 mmol/L (22-29); CHLORIDE 101 mmol/L (98-107); CREATININE, SERUM 0.59 mg/dL (0.57-1.11); EST GLOMERULAR FILTRATION RATE > 60 ML/MIN (60-); GLUCOSE 120 mg/dL (74-118); POTASSIUM 3.5 mmol/L (3.5-5.1); SODIUM 136 mmol/L (136-145)
[2018-01-24 06:41] LABS: AMYLASE 36 U/L (25-125); LIPASE 112 U/L (8-78)
[2018-01-24 07:00] VITALS: BP 148/84
[2018-01-24 09:00] VITALS: BP 148/84
[2018-01-24] MEDS: PANTOPRAZOLE 40 MG 10ML VIAL IV SCH (09:08)
[2018-01-24 12:04] VITALS: BP 137/83
[2018-01-24 16:09] VITALS: BP 133/68
== END 2018-01-24 19:25 | disposition home or self-care (01) | DRG 439 ==
LOC: ER 20:05 → ERHOLD 20:31 → MED/SURG 01-19 17:12
DX: K85.90 Acute pancreatitis without necrosis or infection, unspecified (principal); J45.901 Unspecified asthma with (acute) exacerbation; I10 Essential (primary) hypertension; K85.10 Biliary acute pancreatitis without necrosis or infection; E66.9 Obesity, unspecified; Z68.31 Body mass index [BMI] 31.0-31.9, adult; E78.5 Hyperlipidemia, unspecified
CPT/HCPCS: 36415; 71045; 74183; 80048; 80053; 80061; 81001; 82150; 83690; 83970; 85025; 86039; 86301; 87040; 87086; 90732; 94640; 96374; 96376; 99284; J0360; J1940; J2060; J2405; J2550; J3480; J7030; J7120

== ENCOUNTER 2018-06-16 18:04 | Inpatient (IN) | payer SELFPAY ==
[~2018-06-16] VITALS: Ht 160 cm; Wt 85.0 kg
[~2018-06-16 18:04] MED LIST changes: +ATENOLOL50 MG PO; +CLONAZEPAM0.5 MG PO; +VENLAFAXINE HCL75 M1 PO
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
[2018-06-16 21:43] LABS: BASOPHILS % 0.4 % (0.0-1.0); EOSINOPHILS % 0.1 % (0.0-6.0); HEMATOCRIT 50.7 % (34.2-44.1); HEMOGLOBIN 16.7 g/dL (12.0-16.0); LYMPHOCYTES # (AUTO) 0.6 (1.0-3.2); LYMPHOCYTES % 9.5 % (18.0-39.1); MEAN CORPUSCULAR HEMOGLOBIN 31.2 pg (28-32); MEAN CORPUSCULAR HGB CONC 32.9 g/dL (31-35); MEAN CORPUSCULAR VOLUME 94.8 fL (81-99); MONOCYTES # (AUTO) 0.6 (0.2-0.8); MONOCYTES % 8.3 % (4.4-11.3); NEUTROPHILS # (AUTO) 5.5 (2.1-6.9); NEUTROPHILS % 81.3 % (38.7-80.0); PLATELET COUNT 164 x10e3/uL (140-360); RED BLOOD COUNT 5.35 x10e6/uL (3.6-5.1); RED CELL DISTRIBUTION WIDTH 15.3 % (11.7-14.4)
[2018-06-16 22:10] LABS: AMYLASE 195 U/L (25-125); LIPASE 999 U/L (8-78)
[2018-06-16 22:12] LABS: ALBUMIN 4.4 g/dL (3.5-5.0); ALBUMIN/GLOBULIN RATIO 1.1 (0.8-2.0); ANION GAP 17.4 mmol/L (8-16); CALCIUM 10.6 mg/dL (8.4-10.2); CREATININE, SERUM 0.96 mg/dL (0.57-1.11); POTASSIUM 3.4 mmol/L (3.5-5.1)
[2018-06-16 22:34] LABS: CLARITY,URINE HAZY (CLEAR); COLOR,URINE YELLOW (YELLOW); LEUKOCYTE ESTERASE ,URINE NEGATIVE (NEGATIVE); NITRITE,URINE NEGATIVE (NEGATIVE)
[2018-06-16 22:35] LABS: BILIRUBIN,URINE NEGATIVE (NEGATIVE); KETONES,URINE 2+ (NEGATIVE); PREGNANCY TEST, URINE NEGATIVE (NEGATIVE); PROTEIN,URINE DIPSTICK 2+ (NEGATIVE); URINE UROBILINOGEN 0.2 mg/dL (0.2 - 1)
[2018-06-16 22:41] LABS: BACTERIA,URINE MODERATE /HPF; EPITHELIAL CELLS,URINE FEW /LPF; YEAST,URINE FEW
[2018-06-16] MEDS ORDERED: ONDANSETRON HCL INJ 2MG/ML 2ML 2 MG/ML VIAL IV STA (23:29)
[2018-06-17] MEDS ORDERED: ONDANSETRON HCL INJ 2MG/ML 2ML 2 MG/ML VIAL ONE (02:46)
[2018-06-17] MEDS ORDERED: KETOROLAC TROMETHAMINE 30 MG/ML VIAL IV STA (02:50)
[2018-06-17] MEDS ORDERED: ONDANSETRON HCL INJ 2MG/ML 2ML 2 MG/ML VIAL IV STA (02:55)
[2018-06-17] MEDS ORDERED: MORPHINE SULFATE INJ 4 MG/ML INJ 1ML IV ONE (03:00)
--- NOTE | 2018-06-17 03:42 | Diagnostic Imaging Report ---
EXAM: CT Abdomen and Pelvis WITH contrast INDICATION: Abdominal pain. Elevated lipase. Pancreatitis. COMPARISON: 01/17/2018. TECHNIQUE: Abdomen and pelvis were scanned utilizing a multidetector helical scanner from the lung base to the pubic symphysis after administration of IV contrast. Coronal and sagittal reformations were obtained. Routine protocol was performed. Scan was performed when during portal venous phase. IV CONTRAST: 100 cc Isovue-300 ORAL CONTRAST: Water RADIATION DOSE: Total DLP: 549.75 mGy*cm Estimated effective dose: (DLP x 0.015 x size factor) mSv COMPLICATIONS: None FINDINGS: LINES and TUBES: None. LOWER THORAX: Unremarkable HEPATOBILIARY: Hepatic steatosis. No focal hepatic lesions. No biliary ductal dilation. GALLBLADDER: No radio-opaque stones or sludge. No wall thickening. SPLEEN: No splenomegaly. PANCREAS: Mild diffuse pancreatic edema, acutely involving the pancreatic head again observed. Multiple areas of low-attenuation in the pancreatic head may reflect necrosis. Small volume of peripancreatic fluid about the tail and inferior body. There is mild dilatation of the main pancreatic duct up to 4 mm in diameter on image 27 series 2. ADRENALS: No adrenal nodules KIDNEYS/URETERS: Kidneys enhance symmetrically. No hydronephrosis. No cystic or solid mass lesions. No stones. GI TRACT: No abnormal distention, wall thickening, or evidence of bowel obstruction. Appendix is normal. PELVIC ORGANS/BLADDER: Bilateral issue or tubal occlusion devices. LYMPH NODES: Mildly prominent peripancreatic lymph nodes. VESSELS: Extensive perigastric and perisplenic collaterals, with a markedly attenuated splenic vein suggesting partial occlusion. PERITONEUM / RETROPERITONEUM: No free air or fluid. BONES: Right hip prosthesis again observed. Bone island in the left ilium. Grade 1 anterolisthesis of L5 in relation to S1. SOFT TISSUES: Bilateral calcified left implants. IMPRESSION: 1. Recurrent acute pancreatitis with small focal areas of low-attenuation in the pancreatic head (concerning for early necrosis). Small acute peripancreatic fluid without loculated fluid collections. 2. Hepatomegaly and hepatic steatosis. Signed by: Dr. Holly Darby M.D. on 06/17/2018 3:38 AM
[2018-06-17] MEDS ORDERED: MORPHINE SULFATE 2 MG/ML SYR 1ML IV PRN (04:00)
[2018-06-17] MEDS ORDERED: SODIUM CHLORIDE 0.9% 50ML 50 ML ONE (04:51)
[2018-06-17] MEDS ORDERED: IOPAMIDOL 370 MG/ML 200 ML INFUS..BTL INJ ONE (04:52)
[2018-06-17] MEDS ORDERED: MORPHINE SULFATE INJ 10 MG/ML IV PRN (05:10)
[2018-06-17] MEDS ORDERED: SODIUM CHLORIDE 0.9% 1000ML 1,000 ML ONE (05:35)
[2018-06-17] MEDS: CEFTRIAXONE SOD 1 GM/NS 50 ML 50 ML IV SCH (05:45)
[2018-06-17] MEDS: SODIUM CHLORIDE 0.9% 1000ML 1,000 ML IV SCH ×3 (06:38→20:12)
[2018-06-17] MEDS ORDERED: HYDRALAZINE HCL 20 MG/ML VIAL IV PRN (06:45)
[2018-06-17] MEDS ORDERED: MORPHINE SULFATE INJ 4 MG/ML INJ 1ML ONE (07:08)
--- NOTE | 2018-06-17 07:42 | NUR ---
Recvd patient from ER. AAOx3, Resp even and unlabored, not in any distress, call light in reach, bed in lowest position locked, cont monitoring
[2018-06-17 08:21] VITALS: BP 169/96
[2018-06-17 09:25] VITALS: BP 169/96
[2018-06-17] MEDS: MORPHINE SULFATE INJ 4 MG/ML INJ 1ML IV PRN ×2 (10:40→14:50)
[2018-06-17] MEDS: ONDANSETRON HCL INJ 2MG/ML 2ML 2 MG/ML VIAL IV PRN ×2 (10:40→14:50)
[2018-06-17] MEDS ORDERED: PROAIR HFA INH8.5 GM INH (11:36)
[2018-06-17 14:50] VITALS: BP 169/96
--- NOTE | 2018-06-17 15:15 | NUR ---
Visit made by the Spiritual Care Department Pastoral Visitor, Batsheva Murray. PV provided pastoral presence, prayer, hospitality, and supportive listening. Pastoral Visitor informed pt/family of the scope of Equipment Operation Instructor Services and availability. PAIGE WAN Meters Superintendent Spiritual Care Department O: [phone] Pager: [phone] ([phone] number calling from)
[2018-06-17 17:06] VITALS: BP 146/90
[2018-06-17] MEDS ORDERED: HYDROMORPHONE 2MG/ML 2 MG/ML ML IV PRN (17:15)
--- NOTE | 2018-06-17 18:09 | NUR ---
patient up in bed, not in any distress, call light in reach, Dr Bessie Hilton had rounds
--- NOTE | 2018-06-17 19:20 | NUR ---
Completed bedside rounds with morning nurse. Pt alert and orient to name, place, time, and situation. Sitting in bed HOB 60. Pt states pain stable at 4/10 on numeric pain scale, recently medicated with prn pain med. Call storey within reach. Will continue to monitor.
[2018-06-17 20:00] VITALS: BP 126/73
[2018-06-17 20:23] VITALS: BP 126/73
[2018-06-17] MEDS: ALBUTEROL SULFATE HFA 8GM INHALATION AEROSOL INH PRN (20:23)
[2018-06-17] MEDS: HYDROMORPHONE 2MG/ML 2 MG/ML ML IV PRN (21:45)
--- NOTE | 2018-06-17 22:45 | NUR ---
Pt c/o 10/04 upper abdominal pain that radiates to back. Pt stated doctor previously ordered Dilaudid 2mg every [address] Clifford Hilton called to verify Pt's statement. Dr. Clifford Hilton ordered to increase Dilaudid to every 3 hrs. Admin Dilaudid for upper abd pain.
[2018-06-18] VITALS (8 sets, daily range): BP systolic 129–159; BP diastolic 66–84
--- NOTE | 2018-06-18 00:05 | NUR ---
Dr. Michael Hilton reviewed Pt's lab work. Ordered IV fluids: LR @300ml/hr. Stat labs: CBC, CMP, lipase.
[2018-06-18] MEDS: LACTATED RINGER'S 1,000 ML IV SCH ×7 (00:12→21:14)
--- NOTE | 2018-06-18 00:45 | NUR ---
Bedside rounds completed with Dr. Michael Hilton. Informed Pt of current health status and treatment options. Informed Pt to follow closely with senior strategy manager's plan to reduce chance of having another Pancreatitis attack. Pt verbalized understanding. Stat labs drawn, x2 sticks, Pt tolerated well. Call storey within reach. Will continue to monitor.
[2018-06-18 00:56] LABS: BASOPHILS % 0.5 % (0.0-1.0); EOSINOPHILS # (AUTO) 0.1 (0.0-0.4); HEMATOCRIT 42.5 % (34.2-44.1); HEMOGLOBIN 13.6 g/dL (12.0-16.0); LYMPHOCYTES # (AUTO) 1.2 (1.0-3.2); LYMPHOCYTES % 28.6 % (18.0-39.1); MEAN CORPUSCULAR HEMOGLOBIN 31.6 pg (28-32); MONOCYTES # (AUTO) 0.5 (0.2-0.8); MONOCYTES % 11.3 % (4.4-11.3); NEUTROPHILS # (AUTO) 2.4 (2.1-6.9); NEUTROPHILS % 56.4 % (38.7-80.0); PLATELET COUNT 112 x10e3/uL (140-360); RED BLOOD COUNT 4.31 x10e6/uL (3.6-5.1); RED CELL DISTRIBUTION WIDTH 15.4 % (11.7-14.4)
[2018-06-18 01:04] LABS: MEAN CORPUSCULAR VOLUME 98.6 fL (81-99)
[2018-06-18 01:10] LABS: ALANINE AMINOTRANSFERASE 44 IU/L (0-55); ALBUMIN/GLOBULIN RATIO 1.2 (0.8-2.0); ALKALINE PHOSPHATASE 79 IU/L (40-150); ANION GAP 12.5 mmol/L (8-16); BLOOD UREA NITROGEN 13 mg/dL (7-26); BUN/CREATININE RATIO 16 (6-25); CARBON DIOXIDE 21 mmol/L (22-29); CHLORIDE 104 mmol/L (98-107); CREATININE, SERUM 0.79 mg/dL (0.57-1.11); EST GLOMERULAR FILTRATION RATE > 60 ML/MIN (60-); GLUCOSE 95 mg/dL (74-118); LIPASE 314 U/L (8-78); POTASSIUM 3.5 mmol/L (3.5-5.1); SODIUM 134 mmol/L (136-145)
[2018-06-18 01:14] LABS: CALCIUM 8.4 mg/dL (8.4-10.2)
[2018-06-18 01:15] LABS: ALBUMIN 3.2 g/dL (3.5-5.0)
[2018-06-18] MEDS: HYDROMORPHONE 2MG/ML 2 MG/ML ML IV PRN ×7 (01:40→22:30)
[2018-06-18] MEDS: CEFTRIAXONE SOD 1 GM/NS 50 ML 50 ML IV SCH (03:49)
[2018-06-18] MEDS: ALBUTEROL SULFATE HFA 8GM INHALATION AEROSOL INH PRN (04:43)
[2018-06-18 06:19] LABS: BASOPHILS % 0.8 % (0.0-1.0); EOSINOPHILS # (AUTO) 0.1 (0.0-0.4); EOSINOPHILS % 3.5 % (0.0-6.0); HEMATOCRIT 40.4 % (34.2-44.1); HEMOGLOBIN 12.9 g/dL (12.0-16.0); LYMPHOCYTES # (AUTO) 1.2 (1.0-3.2); LYMPHOCYTES % 29.1 % (18.0-39.1); MEAN CORPUSCULAR HEMOGLOBIN 31.2 pg (28-32); MEAN CORPUSCULAR HGB CONC 31.9 g/dL (31-35); MEAN CORPUSCULAR VOLUME 97.6 fL (81-99); MONOCYTES # (AUTO) 0.5 (0.2-0.8); MONOCYTES % 11.9 % (4.4-11.3); NEUTROPHILS # (AUTO) 2.2 (2.1-6.9); NEUTROPHILS % 54.4 % (38.7-80.0); PLATELET COUNT 112 x10e3/uL (140-360); RED BLOOD COUNT 4.14 x10e6/uL (3.6-5.1); RED CELL DISTRIBUTION WIDTH 15.4 % (11.7-14.4)
[2018-06-18 06:48] LABS: ALANINE AMINOTRANSFERASE 39 IU/L (0-55); ALBUMIN 2.9 g/dL (3.5-5.0); ALKALINE PHOSPHATASE 74 IU/L (40-150); ANION GAP 13.6 mmol/L (8-16); BLOOD UREA NITROGEN 13 mg/dL (7-26); BUN/CREATININE RATIO 17 (6-25); CALCIUM 8.7 mg/dL (8.4-10.2); CARBON DIOXIDE 23 mmol/L (22-29); CHLORIDE 103 mmol/L (98-107); CREATININE, SERUM 0.78 mg/dL (0.57-1.11); EST GLOMERULAR FILTRATION RATE > 60 ML/MIN (60-); GLUCOSE 92 mg/dL (74-118); LIPASE 257 U/L (8-78); POTASSIUM 3.6 mmol/L (3.5-5.1); SODIUM 136 mmol/L (136-145)
[2018-06-18] MEDS: VENLAFAXINE HCL 75 MG CAPCR PO SCH (08:02)
[2018-06-18] MEDS: CLONAZEPAM 0.5 MG TAB PO SCH ×2 (08:02→17:00)
[2018-06-18] MEDS: ATENOLOL 50 MG TAB PO SCH (08:04)
--- NOTE | 2018-06-18 12:59 | NUR ---
GAVE PACKET OF INFORMATION WITH COMMUNITY RESOURCES FOR ASSISTANCE WITH LOW TO NO INCOME TO PATIENT. RESOURCES THAT PATIENT MAY BE ABLE TO FOLLOW UP UPON DISCHARGE. PT EDUCATED ON EACH RESOURCE AND UNDERSTANDING HOW TO FOLLOW UP TO SEE IF QUALIFIED FOR EACH RESOURCE.
--- NOTE | 2018-06-18 12:59 | NUR ---
SOCIAL WORK INITIAL ASSESSMENT Refrigeration Supervisor to bedside to discuss plan of care with patient/family. CM/SW role and care transitions discussed. Anticipated discharge plan discussed along with duration of care. CM/SW discussed patients right to make decisions in care. CM/SW work hours given. Patient lives: IN OWN HOME BY SELF Admit/Transfer: VIA ED POA/Emergency contact: NONE Current/Previous Home Health: NONE PCP/Follow-up Care: 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 Areas of Concerns: NO BENEFITS Referral Needs: GAVE RESOURCE PACKET Education Needs: NONE IMM/RETANA given and signed (if applicable): NA Goal for discharge: RETURN HOME INDEPENDENTLY CM/SW left business card at the bedside with contact information. Name and number was also written on the patients whiteboard. Patient verbalized understanding of discussion. CM will follow-up with ongoing discharge and transition of care needs.
--- NOTE | 2018-06-18 13:42 | NUR ---
Nutrition Screen Note RD Recommendation for Physician: -Rec advancing to low fat diet as medically appropriate -RD provided low fat diet education on 06/18. Plan of Care: RD following, monitoring for tolerance and adequacy, diet education Nutrition reason for involvement: RN Consult diet education Primary Diagnose(s): acute pancreatitis PMH: no H&P in chart Ht: 63in Wt: 179.19lb BMI: 31.7kg/m2 IBW: 115lb RD Assessment: (06/18) Chart reviewed. Labs and meds reviewed. 57yo F, who was admitted for recurrent pancreatitis. Pt was admitted on 01/24/2018 for similar issue and diet education was provided at that time. Lipase has trend down to 257 today. Pt denied any nausea or vomiting today. 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 Currently NPO and on pain meds for abdominal pain. RD provided diet education again as consulted. Will continue to monitor and follow. Current Diet: NPO Malnutrition Evaluation (06/18) The patient does not meet criteria for a specified degree of malnutrition at this time. Will re-evaluate at follow-up as appropriate. Diet Education Needs Assessment: Diet education indicated, pt was agreeable with plan. Learner(s): pt Time spent: 25minutes Barriers: No barriers identified. Cultural/Language Modifications: No cultural/language modifications noted. Pt speaks [place]. Readiness: Pt eager to learn. Method: Explanation, handouts Topics: Pancreatitis Nutrition Therapy (Low fat diet) Understanding/Compliance: Expect good understanding/compliance from pt. Will benefit from reinforcement. All questions have been answered. Nutrition Care Level: low Signed: Kala Rocha, , RD, LD
[2018-06-19] VITALS (9 sets, daily range): BP systolic 123–184; BP diastolic 69–92
[2018-06-19] MEDS: LACTATED RINGER'S 1,000 ML IV SCH ×7 (00:37→22:40)
[2018-06-19] MEDS: HYDROMORPHONE 2MG/ML 2 MG/ML ML IV PRN ×7 (00:38→21:17)
[2018-06-19] MEDS: CEFTRIAXONE SOD 1 GM/NS 50 ML 50 ML IV SCH (03:45)
[2018-06-19 06:34] LABS: BASOPHILS % 0.7 % (0.0-1.0); EOSINOPHILS # (AUTO) 0.2 (0.0-0.4); HEMATOCRIT 37.9 % (34.2-44.1); HEMOGLOBIN 12.4 g/dL (12.0-16.0); LYMPHOCYTES # (AUTO) 1.4 (1.0-3.2); LYMPHOCYTES % 33.4 % (18.0-39.1); MEAN CORPUSCULAR HGB CONC 32.7 g/dL (31-35); MEAN CORPUSCULAR VOLUME 97.9 fL (81-99); MONOCYTES # (AUTO) 0.4 (0.2-0.8); MONOCYTES % 9.6 % (4.4-11.3); NEUTROPHILS # (AUTO) 2.2 (2.1-6.9); NEUTROPHILS % 52.1 % (38.7-80.0); PLATELET COUNT 110 x10e3/uL (140-360); RED BLOOD COUNT 3.87 x10e6/uL (3.6-5.1); RED CELL DISTRIBUTION WIDTH 14.8 % (11.7-14.4)
[2018-06-19 06:57] LABS: ANION GAP 12.8 mmol/L (8-16); BLOOD UREA NITROGEN 9 mg/dL (7-26); BUN/CREATININE RATIO 13 (6-25); CALCIUM 8.5 mg/dL (8.4-10.2); CARBON DIOXIDE 24 mmol/L (22-29); CHLORIDE 101 mmol/L (98-107); CREATININE, SERUM 0.69 mg/dL (0.57-1.11); EST GLOMERULAR FILTRATION RATE > 60 ML/MIN (60-); GLUCOSE 81 mg/dL (74-118); POTASSIUM 3.8 mmol/L (3.5-5.1); SODIUM 134 mmol/L (136-145)
[2018-06-19] MEDS: ATENOLOL 50 MG TAB PO SCH (09:00)
[2018-06-19] MEDS: VENLAFAXINE HCL 75 MG CAPCR PO SCH (10:01)
[2018-06-19] MEDS: CLONAZEPAM 0.5 MG TAB PO SCH ×2 (10:01→17:58)
[2018-06-20] VITALS (8 sets, daily range): BP systolic 108–178; BP diastolic 67–96
[2018-06-20] MEDS: LACTATED RINGER'S 1,000 ML IV SCH ×5 (00:21→19:44)
--- NOTE | 2018-06-20 00:50 | NUR ---
Dr. Michael Hilton here for rounding, ok to lower LR to 150cc/hr. Will start clears when lipase is down.
[2018-06-20] MEDS: HYDROMORPHONE 2MG/ML 2 MG/ML ML IV PRN ×7 (01:45→22:30)
[2018-06-20] MEDS: CEFTRIAXONE SOD 1 GM/NS 50 ML 50 ML IV SCH (04:18)
--- NOTE | 2018-06-20 07:55 | NUR ---
The pt. called for pain med and reports that it is 7/10 in the back and abd
[2018-06-20] MEDS: CLONAZEPAM 0.5 MG TAB PO SCH ×2 (09:09→16:56)
[2018-06-20] MEDS: VENLAFAXINE HCL 75 MG CAPCR PO SCH (09:09)
[2018-06-20] MEDS: ATENOLOL 50 MG TAB PO SCH (09:10)
--- NOTE | 2018-06-20 19:30 | NUR ---
Patient visited in room during nursing rounds. Patient alert and oriented x3. Ambulatory in room prn. Patient experiencing intermittent abdominal pain. On IVF (LR @ 150ml/hr) and scheduled IV antibiotic. Call storey within reach. Will monitor pt closely.
[2018-06-21] VITALS (7 sets, daily range): BP systolic 107–154; BP diastolic 51–89
[2018-06-21] MEDS: LACTATED RINGER'S 1,000 ML IV SCH ×2 (01:50→11:00)
[2018-06-21] MEDS: HYDROMORPHONE 2MG/ML 2 MG/ML ML IV PRN ×7 (01:50→23:22)
[2018-06-21] MEDS: CEFTRIAXONE SOD 1 GM/NS 50 ML 50 ML IV SCH (04:00)
[2018-06-21 05:13] LABS: ANION GAP 15.6 mmol/L (8-16); BLOOD UREA NITROGEN 6 mg/dL (7-26); BUN/CREATININE RATIO 9 (6-25); CALCIUM 8.9 mg/dL (8.4-10.2); CARBON DIOXIDE 25 mmol/L (22-29); CHLORIDE 102 mmol/L (98-107); CREATININE, SERUM 0.64 mg/dL (0.57-1.11); EST GLOMERULAR FILTRATION RATE > 60 ML/MIN (60-); GLUCOSE 98 mg/dL (74-118); POTASSIUM 3.6 mmol/L (3.5-5.1); SODIUM 139 mmol/L (136-145)
[2018-06-21] MEDS: ATENOLOL 50 MG TAB PO SCH (08:10)
[2018-06-21] MEDS: VENLAFAXINE HCL 75 MG CAPCR PO SCH (09:02)
[2018-06-21] MEDS: CLONAZEPAM 0.5 MG TAB PO SCH ×2 (09:02→16:44)
--- NOTE | 2018-06-21 19:30 | NUR ---
Patient visited in room during nursing rounds. Patient alert and oriented x3. Ambulatory in room prn. Patient experiencing intermittent abdominal pain but states is getting better. On scheduled IV antibiotic. Patient wishes to go home tomorrow. Call storey within reach. Will monitor pt closely.
--- NOTE | 2018-06-21 22:50 | NUR ---
Dr. Constantino Hilton came and visited pt in room. MD aware of patient condition and patient's wish of being discharged tomorrow (06/22/18). Dr. Hilton suggested to patient to inform Dr. Montgomery in the morning of request to be discharged tomorrow. Dr. Hilton also emphasized to pt to stop smoking and to follow up with him in the next couple of weeks.
[2018-06-22] VITALS: BP 117/58
[2018-06-22 04:00] VITALS: BP 148/81
[2018-06-22] MEDS: HYDROMORPHONE 2MG/ML 2 MG/ML ML IV PRN ×2 (04:40→08:10)
[2018-06-22] MEDS: CEFTRIAXONE SOD 1 GM/NS 50 ML 50 ML IV SCH (04:40)
[2018-06-22 06:11] LABS: BASOPHILS % 0.5 % (0.0-1.0); EOSINOPHILS # (AUTO) 0.1 (0.0-0.4); EOSINOPHILS % 3.8 % (0.0-6.0); HEMATOCRIT 36.7 % (34.2-44.1); HEMOGLOBIN 11.9 g/dL (12.0-16.0); LYMPHOCYTES # (AUTO) 0.9 (1.0-3.2); LYMPHOCYTES % 25.2 % (18.0-39.1); MEAN CORPUSCULAR HEMOGLOBIN 31.2 pg (28-32); MEAN CORPUSCULAR HGB CONC 32.4 g/dL (31-35); MEAN CORPUSCULAR VOLUME 96.3 fL (81-99); MONOCYTES # (AUTO) 0.6 (0.2-0.8); MONOCYTES % 16.7 % (4.4-11.3); NEUTROPHILS % 53.5 % (38.7-80.0); PLATELET COUNT 122 x10e3/uL (140-360); RED BLOOD COUNT 3.81 x10e6/uL (3.6-5.1); RED CELL DISTRIBUTION WIDTH 15.2 % (11.7-14.4)
[2018-06-22 06:32] LABS: ALANINE AMINOTRANSFERASE 25 IU/L (0-55); ALBUMIN 2.7 g/dL (3.5-5.0); ALBUMIN/GLOBULIN RATIO 0.9 (0.8-2.0); ALKALINE PHOSPHATASE 64 IU/L (40-150); AMYLASE 41 U/L (25-125); ANION GAP 13.2 mmol/L (8-16); BLOOD UREA NITROGEN 5 mg/dL (7-26); BUN/CREATININE RATIO 8 (6-25); CALCIUM 8.8 mg/dL (8.4-10.2); CARBON DIOXIDE 26 mmol/L (22-29); CHLORIDE 104 mmol/L (98-107); CREATININE, SERUM 0.64 mg/dL (0.57-1.11); EST GLOMERULAR FILTRATION RATE > 60 ML/MIN (60-); GLUCOSE 131 mg/dL (74-118); LIPASE 109 U/L (8-78); POTASSIUM 3.2 mmol/L (3.5-5.1); SODIUM 140 mmol/L (136-145)
--- NOTE | 2018-06-22 07:05 | NUR ---
Received patient mid fowlers position, side rails upx2, call light within reach. AAOX4 to time,person, place,situation. Respirations even and unlabored. Denies pain. Instructed patient to use call light for assistance. Voiced understanding. Will continue to monitor.
[2018-06-22 08:09] VITALS: BP 126/65
[2018-06-22] MEDS: VENLAFAXINE HCL 75 MG CAPCR PO SCH (08:09)
[2018-06-22 08:10] VITALS: BP 158/74
[2018-06-22] MEDS: CLONAZEPAM 0.5 MG TAB PO SCH (08:10)
[2018-06-22] MEDS: ATENOLOL 50 MG TAB PO SCH (08:10)
[2018-06-22 11:33] VITALS: BP 149/79
--- NOTE | 2018-06-22 12:30 | NUR ---
[facility] DC summary: [id number]
[2018-06-22] MEDS ORDERED: POTASSIUM CHLORIDE 10MEQ EA PO ONE (13:00)
--- NOTE | 2018-06-22 13:34 | Discharge Summary ---
ADMITTING DIAGNOSES: 1. Acute pancreatitis. 2. History of recurrent bouts of pancreatitis. 3. Mild obesity. 4. Major depressive disorder with anxiety. 5. Hypertensive heart disease. 6. Urinary tract infection. DISCHARGE DIAGNOSES: 1. Acute pancreatitis, resolved. 2. Recurrent bouts of pancreatitis. 3. Hypertensive heart disease. 4. Mild obesity, BMI 33. 5. Urinary tract infection, resolved. 6. Major depressive disorder with anxiety. HOSPITAL COURSE: A 57-year-old white woman, who has known history of recurrent bouts of pancreatitis. The patient admitted to [facility] with diagnosis of acute bronchitis. On admission, the patient underwent a CT of the abdomen and pelvis with intravenous contrast that revealed evidence of acute pancreatitis with small acute peripancreatic fluid without loculated fluid collection. The CT of the abdomen and pelvis also revealed hepatomegaly as well as hepatic steatosis. The patient improved clinically during this hospitalization with supportive care. She was made nothing by mouth and we will start intravenous fluids. Urinalysis on admission also was consistent with tract infection. The patient improved clinically in regard to urinary tract infection with intravenous ceftriaxone. On admission, the patient's amylase, lipase is 195 and 999 respectively. On day of discharge, the patient's amylase, lipase is 41 and 109 respectively. The patient is tolerating a soft GI diet. The patient is tolerating a regular diet on discharge. CONDITION ON DISCHARGE: Stable. DISCHARGE MEDICATIONS: 1. Venlafaxine XR 75 mg daily. 2. Clonazepam 0.5 mg b.i.d. 3. Albuterol inhaler 2 puffs q.i.d. as needed for shortness of breath and wheezing. 4. Atenolol 25 mg daily. FOLLOWUP INSTRUCTIONS: The patient was instructed to follow up with her primary care physician namely, Dr. Reymundo Hernandez within 7-10 days.. MD KYRA Beck/FABIANO /[id number] cc: Reymundo Hernandez DO [facility]
--- NOTE | 2018-06-22 14:00 | NUR ---
Left AC IV discontinued. No signs of infiltration noted. 2x2 gauze and tape placed. Refused wheelchair. Accompanied by munitions handler supervisor to personal car. AAOX4 to time, person, place, situation. Respirations even and unlabored. Denies pain. Discharge instructions and all personal instructions taken with patient. No rx to be given.
== END 2018-06-22 14:10 | disposition home or self-care (01) | DRG 439 ==
LOC: ER 18:04 → OBSVTOIN 06-17 04:05 → ERHOLD 06-17 04:05 → MED/SURG2 06-17 07:38
DX: K85.90 Acute pancreatitis without necrosis or infection, unspecified (principal); N39.0 Urinary tract infection, site not specified; K86.1 Other chronic pancreatitis; Z68.33 Body mass index [BMI] 33.0-33.9, adult; I11.9 Hypertensive heart disease without heart failure; F32.9 Major depressive disorder, single episode, unspecified; F41.9 Anxiety disorder, unspecified; E66.8 Other obesity
CPT/HCPCS: 36415; 74177; 80048; 80053; 81001; 81025; 82150; 83690; 84478; 85025; 99284; J0696; J2270; J2405; J7030; J7121; Q9967

== ENCOUNTER 2019-01-08 14:17 | Inpatient (IN) | payer SELFPAY ==
[~2019-01-08] VITALS: Ht 157.5 cm; Wt 78.9 kg
[~2019-01-08 14:17] MED LIST changes: +PROAIR HFA INH8.5 GM INH
[2019-01-08] MEDS ORDERED: SODIUM CHLORIDE 0.9% 1000ML 1,000 ML IV STA (14:27)
[2019-01-08 14:53] LABS: BASOPHILS # (AUTO) 0.1 (0.0-0.1); BASOPHILS % 0.8 % (0.0-1.0); EOSINOPHILS % 0.2 % (0.0-6.0); HEMATOCRIT 49.1 % (34.2-44.1); HEMOGLOBIN 16.7 g/dL (12.0-16.0); LYMPHOCYTES # (AUTO) 0.9 (1.0-3.2); LYMPHOCYTES % 9.5 % (18.0-39.1); MONOCYTES # (AUTO) 0.9 (0.2-0.8); MONOCYTES % 8.9 % (4.4-11.3); NEUTROPHILS # (AUTO) 7.7 (2.1-6.9); NEUTROPHILS % 79.8 % (38.7-80.0); PLATELET COUNT 200 x10e3/uL (140-360); RED BLOOD COUNT 4.91 x10e6/uL (3.6-5.1)
[2019-01-08 15:05] LABS: INR 0.92; PROTHROMBIN TIME 12.9 seconds (11.9-14.5)
[2019-01-08 15:06] LABS: PARTIAL THROMBOPLASTIN TIME 24.4 seconds (23.8-35.5)
[2019-01-08] MEDS ORDERED: METOPROLOL TARTRATE INJ 1 MG/ML VIAL IV ONE ×2 (15:15→20:15)
[2019-01-08 15:16] LABS: ALANINE AMINOTRANSFERASE 62 IU/L (0-55); ALBUMIN 3.5 g/dL (3.5-5.0); ALBUMIN/GLOBULIN RATIO 1.1 (0.8-2.0); ALKALINE PHOSPHATASE 103 IU/L (40-150); AMYLASE 250 U/L (25-125); ANION GAP 16.4 mmol/L (8-16); BLOOD UREA NITROGEN 6 mg/dL (7-26); BUN/CREATININE RATIO 8 (6-25); CALCIUM 9.5 mg/dL (8.4-10.2); CARBON DIOXIDE 23 mmol/L (22-29); CHLORIDE 104 mmol/L (98-107); CREATINE KINASE 57 IU/L (29-168); CREATININE, SERUM 0.74 mg/dL (0.57-1.11); EST GLOMERULAR FILTRATION RATE > 60 ML/MIN (60-); GLUCOSE 160 mg/dL (74-118); MAGNESIUM 1.2 MG/DL (1.3-2.1); POTASSIUM 4.4 mmol/L (3.5-5.1); SODIUM 139 mmol/L (136-145)
[2019-01-08] MEDS ORDERED: ONDANSETRON HCL INJ 2MG/ML 2ML 2 MG/ML VIAL IV ONE ×2 (15:22→19:25)
[2019-01-08] MEDS ORDERED: FENTANYL CITRATE/PF 100MCG/2 ML INJ IV ONE (15:30)
--- NOTE | 2019-01-08 15:43 | Diagnostic Imaging Report ---
EXAMINATION: CHEST SINGLE (PORTABLE) INDICATION: Shortness of breath COMPARISON: None FINDINGS: LINES/TUBES:EKG leads overlie the chest. LUNGS:The lungs are well-inflated. No focal consolidation or pulmonary edema. PLEURA:No pleural effusion or pneumothorax. MEDIASTINUM:The cardiomediastinal silhouette appears normal in size and shape. BONES/SOFT TISSUES:No acute osseous injury. Bilateral breast implants. ABDOMEN:No free air under the diaphragm. IMPRESSION: No focal pneumonia or pulmonary edema. Signed by: Gladys Isidro MD on 01/08/2019 3:40 PM
[2019-01-08 15:48] LABS: LIPASE 1419 U/L (8-78)
[2019-01-08] MEDS ORDERED: D5.45%NS/KCL 20MEQ 1,000 ML IV SCH (16:30)
--- NOTE | 2019-01-08 18:04 | Diagnostic Imaging Report ---
EXAM: CT Abdomen and Pelvis WITH intravenous contrast INDICATION: Abdominal pain COMPARISON: CT abdomen and pelvis of 06/17/2018 TECHNIQUE: Abdomen and pelvis were scanned utilizing a multidetector helical scanner from the lung base to the pubic symphysis after administration of IV contrast. Coronal and sagittal reformations were obtained. Routine protocol was performed. Scan was performed during portal venous phase. IV CONTRAST: 100mL of Isovue 370 ORAL CONTRAST: Water RADIATION DOSE: Total DLP: 596.5 mGy*cm Dose modulation, iterative reconstruction, and/or weight based adjustment of the mA/kV was utilized to reduce the radiation dose to as low as reasonably achievable. FINDINGS: LOWER THORAX: No lung base consolidation. Bilateral saline breast implants. HEPATOBILIARY: Hepatomegaly and severe diffuse hepatic steatosis. No focal liver lesion. No biliary ductal dilation. Status post cholecystectomy. SPLEEN: No splenomegaly. PANCREAS: Diffuse peripancreatic edema, peripancreatic fat stranding, and associated peripancreatic free fluid. Area of hypoenhancement at the pancreatic head measuring approximately 2.0 cm. Findings are compatible with necrotizing pancreatitis. ADRENALS: No adrenal nodules. KIDNEYS/URETERS: No hydronephrosis, stones, or solid mass lesions. PELVIC ORGANS/BLADDER: Bilateral Essure devices. PERITONEUM / RETROPERITONEUM: No free air or fluid. LYMPH NODES: Prominent midabdominal retroperitoneal and mesenteric lymph nodes not meeting size factor for lymphadenopathy. VESSELS: Scattered athetotic calcifications of the nonaneurysmal abdominal aorta and major branches. GI TRACT: No abnormal bowel wall thickening. No bowel obstruction. Normal appendix. BONES AND SOFT TISSUES: Status post right total hip replacement. No acute osseous injury. No suspicious lytic or blastic lesions. IMPRESSION: Acute necrotizing pancreatitis. Hepatomegaly and severe hepatic steatosis. The above findings were discussed with Dr. Mcfadden on 01/08/2019 5:52 PM, who responded indicating that the communication was understood. Signed by: Gladys Isidro MD on 01/08/2019 6:00 PM
[2019-01-08] MEDS ORDERED: HYDROMORPHONE 1MG/1ML INJ IV ONE (19:20)
[2019-01-08 19:26] LABS: CHOL/HDL RATIO 3.8 (3.0-3.6)
[2019-01-08] MEDS ORDERED: SODIUM CHLORIDE 0.9% 50ML 50 ML ONE (19:32)
[2019-01-08] MEDS ORDERED: IOPAMIDOL 370 MG/ML 200 ML INFUS..BTL INJ ONE (19:32)
[2019-01-08] MEDS: PIPER-TAZ 3.375 GM 50 ML IV SCH (20:37)
[2019-01-08] MEDS ORDERED: HYDRALAZINE HCL 20 MG/ML VIAL ONE (21:43)
[2019-01-08] MEDS ORDERED: HYDRALAZINE HCL 20 MG/ML VIAL IV ONE (21:46)
[2019-01-08] MEDS ORDERED: HYDRALAZINE HCL 20 MG/ML VIAL IV PRN (23:45)
[2019-01-09] VITALS (14 sets, daily range): BP systolic 138–181; BP diastolic 92–105
[2019-01-09] MEDS ORDERED: CLONIDINE HCL 0.2 MG/24 HR 1 EA PATCH TOP SCH
[2019-01-09] MEDS: ONDANSETRON HCL INJ 2MG/ML 2ML 2 MG/ML VIAL IV PRN ×3 (00:05→09:37)
[2019-01-09] MEDS: HYDROMORPHONE 2MG/ML 2 MG/ML ML IV PRN ×8 (00:05→21:50)
[2019-01-09] MEDS: PIPER-TAZ 3.375 GM 50 ML IV SCH ×5 (00:14→23:42)
[2019-01-09] MEDS: LABETALOL HCL 5 MG/ML 20ML VIAL IV PRN ×3 (01:40→11:55)
[2019-01-09 02:26] LABS: BILIRUBIN,URINE NEGATIVE (NEGATIVE); CLARITY,URINE SL CLOUDY (CLEAR); COLOR,URINE YELLOW (YELLOW); KETONES,URINE NEGATIVE (NEGATIVE); LEUKOCYTE ESTERASE ,URINE NEGATIVE (NEGATIVE); NITRITE,URINE POSITIVE (NEGATIVE); PROTEIN,URINE DIPSTICK NEGATIVE (NEGATIVE); URINE UROBILINOGEN 0.2 mg/dL (0.2 - 1)
--- NOTE | 2019-01-09 02:30 | NUR ---
patient received from ER. Patient is AAOx3, resp even and unlabored. Patient c/o abdominal pain 10/04. High BP noted. will medicated per apr. Oriented to room. assessment done. Call light within reach. Instruct to call for assistance. Bed low/locked. Continue to monitor closely
[2019-01-09] MEDS ORDERED: PROAIR HFA INH8.5 GM INH (02:37)
[2019-01-09 02:38] LABS: BACTERIA,URINE MANY /HPF; EPITHELIAL CELLS,URINE FEW /LPF; YEAST,URINE MANY
[2019-01-09] MEDS ORDERED: EFFEXOR XR 3737.5 MG PO (03:22)
[2019-01-09] MEDS ORDERED: CLONAZEPAM0.5 MG PO (03:22)
[2019-01-09] MEDS: SODIUM CHLORIDE 0.9% 1000ML 1,000 ML IV SCH ×4 (03:30→23:41)
--- NOTE | 2019-01-09 07:04 | NUR ---
BEDSIDE REPORT COMPLETED WITH NADIR RN AT THIS TIME. PT IN NO APPARENT DISTRESS. BED IS IN LOW LOCKED POSITION WITH CALL LIGHT IN REACH.
[2019-01-09] MEDS: ALBUTEROL/IPRATROPIUM 3 ML NEB NEB PRN ×2 (16:00→19:45)
[2019-01-09] MEDS ORDERED: MAGNESIUM SULF 1GRAM/DEXTROSE 100 ML IV ONE (19:45)
[2019-01-10] VITALS (7 sets, daily range): BP systolic 123–130; BP diastolic 79–85
[2019-01-10] MEDS: HYDROMORPHONE 2MG/ML 2 MG/ML ML IV PRN ×8 (01:10→22:35)
[2019-01-10] MEDS: ONDANSETRON HCL INJ 2MG/ML 2ML 2 MG/ML VIAL IV PRN ×5 (01:10→22:56)
--- NOTE | 2019-01-10 01:20 | Consultation ---
DATE OF CONSULTATION: HISTORY OF PRESENT ILLNESS: Ms. Lin is a 58-year-old lady with history of recurrent pancreatitis, most likely induced by alcohol and unfortunately, she continued to drink. Her last drink was the day before her admission. When she started having severe abdominal pain, nausea, and vomiting, called the ambulance, brought to the emergency room. Her lipase found to be at 1400 and she was admitted. In the past 24 hours, she has been doing better. Her abdominal pain is less. She is not having any nausea and vomiting. She is still on n.p.o. No other GI complaint. ALLERGIES: NIL. MEDICINE: Dilaudid, piperacillin/tazobactam, labetalol, clonidine, Zofran, and hydralazine. PAST SURGICAL HISTORY: Cholecystectomy and a right hip replacement. SOCIAL HISTORY: Socially, she is a smoker and she continued to drink. PHYSICAL EXAMINATION: GENERAL: Awake, alert, oriented. VITAL SIGNS: Temperature is 97, pulse 80, blood pressure a bit elevated 176/105. NECK: Supple. HEENT: Sclerae normal. LUNGS: Diffuse expiratory wheezing. HEART: Regularly irregular rhythm. ABDOMEN: Soft, nontender. No acute sign. Bowel sounds present. EXTREMITIES: No edema. IMPRESSION: Recurrent pancreatitis. CT scan showed necrotizing pancreatitis. The patient continued to drink alcohol. We will continue her n.p.o. status. Continue IV hydration. I had a lengthy talk about her pancreatitis and alcohol relation. I hope she will follow-through and stop completely consuming alcohol. Her hemoglobin 16 on admission, hematocrit 49, and platelet 200, and white cell count 9. KAMALJIT is negative. Fasting lipid unremarkable. Liver panel, alkaline phosphatase normal. Total bilirubin normal. AST is 73 and ALT 62, calcium 9.5, sodium 139, potassium 4.4, BUN and creatinine normal. Urinalysis showed increased RBCs and WBCs. So, the other issue in her management, we will obtain urine for culture. As far as the liver enzyme was slightly related to alcoholic liver disease. On her recent CT scan, her liver was enlarged consistent with according to the CT scan, severe diffuse hepatic steatosis with no focal lesion. We will follow. Danelle Leiva MD RD/MODL /[id number]
[2019-01-10] MEDS: PIPER-TAZ 3.375 GM 50 ML IV SCH ×3 (05:54→17:14)
[2019-01-10] MEDS: SODIUM CHLORIDE 0.9% 1000ML 1,000 ML IV SCH ×3 (05:55→18:00)
[2019-01-10 06:11] LABS: BASOPHILS % 0.4 % (0.0-1.0); EOSINOPHILS % 0.3 % (0.0-6.0); HEMATOCRIT 43.7 % (34.2-44.1); LYMPHOCYTES # (AUTO) 0.9 (1.0-3.2); LYMPHOCYTES % 9.8 % (18.0-39.1); MEAN CORPUSCULAR HEMOGLOBIN 33.9 pg (28-32); MEAN CORPUSCULAR VOLUME 105.8 fL (81-99); MONOCYTES # (AUTO) 0.9 (0.2-0.8); MONOCYTES % 9.8 % (4.4-11.3); NEUTROPHILS # (AUTO) 7.5 (2.1-6.9); NEUTROPHILS % 79.1 % (38.7-80.0); PLATELET COUNT 124 x10e3/uL (140-360); RED BLOOD COUNT 4.13 x10e6/uL (3.6-5.1)
[2019-01-10 06:25] LABS: ALANINE AMINOTRANSFERASE 56 IU/L (0-55); ALBUMIN 2.7 g/dL (3.5-5.0); ALBUMIN/GLOBULIN RATIO 0.8 (0.8-2.0); ALKALINE PHOSPHATASE 84 IU/L (40-150); ANION GAP 13.5 mmol/L (8-16); BLOOD UREA NITROGEN 8 mg/dL (7-26); BUN/CREATININE RATIO 11 (6-25); CALCIUM 8.7 mg/dL (8.4-10.2); CARBON DIOXIDE 28 mmol/L (22-29); CHLORIDE 100 mmol/L (98-107); CREATININE, SERUM 0.72 mg/dL (0.57-1.11); EST GLOMERULAR FILTRATION RATE > 60 ML/MIN (60-); GLUCOSE 146 mg/dL (74-118); POTASSIUM 4.5 mmol/L (3.5-5.1); SODIUM 137 mmol/L (136-145)
[2019-01-10] MEDS: ALBUTEROL/IPRATROPIUM 3 ML NEB NEB PRN ×2 (07:30→13:24)
[2019-01-10] MEDS: PANTOPRAZOLE 40 MG 10ML VIAL IV SCH (09:00)
--- NOTE | 2019-01-10 13:17 | Progress Note ---
DATE: SUBJECTIVE: Lin in the hospital with necrotizing pancreatitis due to alcohol. OBJECTIVE: VITAL SIGNS: Temperature 98, pulse 88, blood pressure 123/79. GENERAL: Doing better today, asymptomatic. No abdominal pain. No nausea, no vomiting. ABDOMEN: Soft, nontender. LABORATORY DATA: Hemoglobin 14, hematocrit 43, down from the admission number, white cell count 9.4, platelets 124, BUN and creatinine normal. Sodium and potassium normal. ASSESSMENT AND PLAN: The plan is to continue current care. If her lipase is down today we can advance her diet to clear liquid. Also, I am starting her on thiamine, folate and multivitamin for her alcoholic liver disease. Urine culture is still pending. Danelle Leiva MD RD/MODL /[id number]
[2019-01-11] VITALS (7 sets, daily range): BP systolic 112–158; BP diastolic 62–85
[2019-01-11] MEDS: PIPER-TAZ 3.375 GM 50 ML IV SCH ×5 (00:20→23:30)
[2019-01-11] MEDS: HYDROMORPHONE 2MG/ML 2 MG/ML ML IV PRN ×4 (01:30→16:39)
[2019-01-11] MEDS: ONDANSETRON HCL INJ 2MG/ML 2ML 2 MG/ML VIAL IV PRN ×3 (02:00→08:20)
[2019-01-11] MEDS: SODIUM CHLORIDE 0.9% 1000ML 1,000 ML IV SCH ×4 (02:00→20:40)
[2019-01-11 05:32] LABS: BASOPHILS % 0.5 % (0.0-1.0); EOSINOPHILS # (AUTO) 0.1 (0.0-0.4); EOSINOPHILS % 1.2 % (0.0-6.0); HEMATOCRIT 39.3 % (34.2-44.1); HEMOGLOBIN 12.7 g/dL (12.0-16.0); LYMPHOCYTES # (AUTO) 1.2 (1.0-3.2); LYMPHOCYTES % 18.6 % (18.0-39.1); MEAN CORPUSCULAR HEMOGLOBIN 34.2 pg (28-32); MEAN CORPUSCULAR HGB CONC 32.3 g/dL (31-35); MEAN CORPUSCULAR VOLUME 105.9 fL (81-99); MONOCYTES # (AUTO) 0.7 (0.2-0.8); MONOCYTES % 10.4 % (4.4-11.3); NEUTROPHILS # (AUTO) 4.5 (2.1-6.9); NEUTROPHILS % 68.8 % (38.7-80.0); PLATELET COUNT 114 x10e3/uL (140-360); RED BLOOD COUNT 3.71 x10e6/uL (3.6-5.1); RED CELL DISTRIBUTION WIDTH 15.9 % (11.7-14.4)
[2019-01-11 05:51] LABS: ANION GAP 14.7 mmol/L (8-16); BLOOD UREA NITROGEN 10 mg/dL (7-26); BUN/CREATININE RATIO 16 (6-25); CALCIUM 8.5 mg/dL (8.4-10.2); CARBON DIOXIDE 23 mmol/L (22-29); CHLORIDE 103 mmol/L (98-107); CREATININE, SERUM 0.64 mg/dL (0.57-1.11); EST GLOMERULAR FILTRATION RATE > 60 ML/MIN (60-); GLUCOSE 97 mg/dL (74-118); POTASSIUM 3.7 mmol/L (3.5-5.1); SODIUM 137 mmol/L (136-145)
--- NOTE | 2019-01-11 07:00 | NUR ---
RECEIVED PATIENT RESTING IN BED NO S/S OF DISTRESS. BED LOW, WHEELS LOCKED, SIDE RAILS X2. CALL LIGHT IN REACH WILL CONTINUE TO MONITOR PATIENT.
[2019-01-11] MEDS: ALBUTEROL/IPRATROPIUM 3 ML NEB NEB PRN (07:28)
[2019-01-11] MEDS: FOLIC ACID 1 MG TAB PO SCH ×2 (08:00→11:41)
[2019-01-11] MEDS: MULTIVITAMINS/MINERALS TAB PO SCH ×2 (08:00→11:41)
[2019-01-11] MEDS: PANTOPRAZOLE 40 MG 10ML VIAL IV SCH (08:19)
[2019-01-11] MEDS: THIAMINE HCL INJ 100 MG/ML 2ML VIAL IV SCH (08:19)
--- NOTE | 2019-01-11 09:55 | NUR ---
PATIENT A/O X3, EVEN RESPIRATIONS ON 2LNC. BOWEL SOUNDS PRESENT, SKIN INTACT, NO EDEMA. RIGHT FA 20 GAUGE IV WITH NS @ 150 CC/HR. PATIENT NPO AT THIS TIME. NO PAIN. NO N/V. VS STABLE. CALL LIGHT IN REACH WILL CONTINUE TO MONITOR PATIENT.
[2019-01-11] MEDS: DICYCLOMINE HCL 20 MG TAB PO SCH ×3 (11:41→21:00)
--- NOTE | 2019-01-11 12:52 | Progress Note ---
DATE: SUBJECTIVE: Doing well, recovering from recent episode of necrotizing pancreatitis due to alcohol. Awake, alert, complains of some nausea. PHYSICAL EXAMINATION: ABDOMEN: Soft, nontender, hemodynamically stable. LABORATORY DATA: Electrolytes; sodium, potassium, BUN, and creatinine are normal. Her white cell count is normal, hemoglobin and hematocrit normal. PLAN: To Hep-Lock her IV. Start her on a liquid diet. I talked to her again about alcohol withdrawal and we will continue to follow. Danelle Leiva MD RD/MODL /[id number]
[2019-01-11] MEDS: VENLAFAXINE HCL 75 MG CAPCR PO SCH (13:36)
--- NOTE | 2019-01-11 15:30 | NUR ---
Visit made by the Spiritual Care Department Pastoral Visitor, Uvaldo Huitron. Pt unavailable at this time. PAIGE Mckinneylain [facility] O: [phone] Pager: [phone] ([phone] number calling from)
[2019-01-12] VITALS (8 sets, daily range): BP systolic 113–134; BP diastolic 57–82
[2019-01-12] MEDS: SODIUM CHLORIDE 0.9% 1000ML 1,000 ML IV SCH ×3 (00:29→16:43)
[2019-01-12] MEDS: HYDROMORPHONE 2MG/ML 2 MG/ML ML IV PRN ×3 (00:31→16:39)
[2019-01-12] MEDS: PIPER-TAZ 3.375 GM 50 ML IV SCH ×3 (06:00→16:43)
[2019-01-12] MEDS: PANTOPRAZOLE 40 MG 10ML VIAL IV SCH (08:40)
[2019-01-12] MEDS: THIAMINE HCL INJ 100 MG/ML 2ML VIAL IV SCH (08:40)
[2019-01-12] MEDS: FOLIC ACID 1 MG TAB PO SCH (08:40)
[2019-01-12] MEDS: MULTIVITAMINS/MINERALS TAB PO SCH (08:40)
[2019-01-12] MEDS: DICYCLOMINE HCL 20 MG TAB PO SCH ×4 (08:40→20:43)
[2019-01-12] MEDS: VENLAFAXINE HCL 75 MG CAPCR PO SCH (08:40)
--- NOTE | 2019-01-12 18:09 | NUR ---
Per Dr.J Orozco patient cleared to discharge
--- NOTE | 2019-01-12 18:35 | NUR ---
Resting in bed, side rails upx2, call light within reach. AAOX4 to time, person, place, situation. Respirations even and unlabored. Denies pain. Report to be given to oncoming nurse of patient's status.
--- NOTE | 2019-01-12 19:10 | NUR ---
Completed rounding with morning nurse. Pt alert and orient to name. Pt lying in bed HOB 75 degrees. Denies pain at this time. Will continue to monitor.
--- NOTE | 2019-01-12 19:34 | Progress Note ---
DATE: Ms. Annie Lin came with episode of necrotizing pancreatitis, mild due to alcohol. She recovered nicely. She is awake, alert, oriented, asymptomatic, tolerating her diet well. She is afebrile. Her CBC is normal today with normal white cell count. She has hepatitis profile pending. I ordered today a repeat her lipase for tomorrow and we will continue to follow. Danelle Leiva MD RD/MODL /[id number]
[2019-01-12] MEDS: ACETAMINOPHEN 325 MG TAB PO PRN (23:45)
[2019-01-13 00:31] VITALS: BP 150/68
[2019-01-13 00:34] VITALS: BP 126/78
[2019-01-13] MEDS: SODIUM CHLORIDE 0.9% 1000ML 1,000 ML IV SCH ×2 (01:25→08:07)
[2019-01-13] MEDS: HYDROMORPHONE 2MG/ML 2 MG/ML ML IV PRN ×2 (01:25→10:45)
[2019-01-13 05:46] LABS: ALBUMIN 2.3 g/dL (3.5-5.0); BILIRUBIN,DIRECT 0.4 mg/dL (0.0-0.5)
[2019-01-13 05:48] VITALS: BP 127/70
[2019-01-13] MEDS: PIPER-TAZ 3.375 GM 50 ML IV SCH ×3 (05:53→10:41)
[2019-01-13 07:36] VITALS: BP 152/88
[2019-01-13 08:04] VITALS: BP 152/88
[2019-01-13] MEDS: VENLAFAXINE HCL 75 MG CAPCR PO SCH (08:07)
[2019-01-13] MEDS: ACETAMINOPHEN 325 MG TAB PO PRN (08:07)
[2019-01-13] MEDS: DICYCLOMINE HCL 20 MG TAB PO SCH ×2 (08:07→10:41)
[2019-01-13] MEDS: FOLIC ACID 1 MG TAB PO SCH (08:07)
[2019-01-13] MEDS: MULTIVITAMINS/MINERALS TAB PO SCH (08:07)
[2019-01-13] MEDS: THIAMINE HCL INJ 100 MG/ML 2ML VIAL IV SCH (08:07)
[2019-01-13] MEDS: PANTOPRAZOLE 40 MG 10ML VIAL IV SCH (08:07)
[2019-01-13] MEDS: ALBUTEROL/IPRATROPIUM 3 ML NEB NEB PRN (08:28)
[2019-01-13] MEDS ORDERED: CLONIDINE HCL0.1 MG PO (11:07)
[2019-01-13] MEDS ORDERED: duoneb INH (11:08)
[2019-01-13 12:00] VITALS: BP 136/66
--- NOTE | 2019-01-13 12:35 | NUR ---
Left wrist IV discontinued. No signs of infiltration noted. 2x2 gauze and tape placed. Taken via wheelchair to taxi. AAOX4 to time, person, place, situation. Respirations even and unlabored. Denies pain. Discharge instructions, rx, and all personal belongings taken with patient.
== END 2019-01-13 12:51 | disposition home or self-care (01) | DRG 440 ==
LOC: ER 14:17 → ERHOLD 16:57 → MED/SURG2 01-09 01:57
DX: K85.21 Alcohol induced acute pancreatitis with uninfected necrosis (principal); I10 Essential (primary) hypertension; J44.9 Chronic obstructive pulmonary disease, unspecified; E78.5 Hyperlipidemia, unspecified; F32.9 Major depressive disorder, single episode, unspecified; K70.0 Alcoholic fatty liver; F41.9 Anxiety disorder, unspecified; Z87.891 Personal history of nicotine dependence
CPT/HCPCS: 36415; 71045; 74177; 80048; 80053; 80061; 80076; 81001; 82150; 82550; 82553; 83690; 83735; 84484; 85025; 85610; 85730; 87086; 93005; 94640; 96374; 96375; 99284; J0360; J1170; J2405; J2543; J3010; J3411; J3475; J7030; Q9967

== ENCOUNTER 2021-04-25 06:51 | Observation (INO) | payer OTHER ==
[~2021-04-25] VITALS: Ht 160 cm; Wt 61.2 kg
[~2021-04-25 06:51] MED LIST changes: +CLONIDINE HCL0.1 MG PO; +EFFEXOR XR 3737.5 MG PO; +duoneb INH
[2021-04-25 07:41] LABS: BASOPHILS # (AUTO) 0.2 (0.0-0.1); EOSINOPHILS # (AUTO) 0.3 (0.0-0.4); EOSINOPHILS % 3.9 % (0.0-6.0); HEMATOCRIT 29.4 % (34.2-44.1); HEMOGLOBIN 9.3 g/dL (12.0-16.0); LYMPHOCYTES % 28.4 % (18.0-39.1); MEAN CORPUSCULAR HGB CONC 31.6 g/dL (31-35); MEAN CORPUSCULAR VOLUME 85.2 fL (81-99); MONOCYTES # (AUTO) 0.6 (0.2-0.8); NEUTROPHILS # (AUTO) 3.9 (2.1-6.9); NEUTROPHILS % 55.4 % (38.7-80.0); PLATELET COUNT 152 x10e3/uL (140-360); RED BLOOD COUNT 3.45 x10e6/uL (3.6-5.1)
[2021-04-25 07:51] LABS: INR 1.53; PROTHROMBIN TIME 19.7 seconds (11.9-14.5)
[2021-04-25 07:53] LABS: PARTIAL THROMBOPLASTIN TIME 43.5 seconds (23.8-35.5)
[2021-04-25] MEDS ORDERED: KETOROLAC TROMETHAMINE 30 MG/ML VIAL IV ONE (08:30)
[2021-04-25 08:36] LABS: ALBUMIN 2.8 g/dL (3.5-5.0); ALBUMIN/GLOBULIN RATIO 0.6 (0.8-2.0); ANION GAP 12.4 mmol/L (8-16); CALCIUM 7.7 mg/dL (8.4-10.2); CREATININE, SERUM 0.77 mg/dL (0.57-1.11); POTASSIUM 3.4 mmol/L (3.5-5.1)
[2021-04-25 08:47] LABS: SALICYLATE < 5.0 mg/dL (0-30)
[2021-04-25 08:50] LABS: LIPASE 57 U/L (8-78)
[2021-04-25] MEDS ORDERED: SODIUM CHLORIDE 0.9% 1000ML 1,000 ML IV STA (08:51)
[2021-04-25 08:56] LABS: CLARITY,URINE CLEAR (CLEAR); COLOR,URINE YELLOW (YELLOW); KETONES,URINE NEGATIVE (NEGATIVE); LEUKOCYTE ESTERASE ,URINE NEGATIVE (NEGATIVE); NITRITE,URINE NEGATIVE (NEGATIVE); PROTEIN,URINE DIPSTICK NEGATIVE (NEGATIVE)
[2021-04-25 08:58] LABS: AMPHETAMINES SCREEN,URINE NEGATIVE (NEGATIVE); BENZODIAZEPINES SCREEN,URINE NEGATIVE (NEGATIVE); PHENCYCLIDINE SCREEN,URINE NEGATIVE (NEGATIVE)
[2021-04-25 08:59] LABS: URINE UROBILINOGEN 0.2 mg/dL (0.2 - 1)
[2021-04-25 09:09] LABS: BACTERIA,URINE MODERATE /HPF; EPITHELIAL CELLS,URINE MANY /LPF; RBC,URINE 0-5 /HPF (0-5); WBC,URINE (MAN) 0-5 /HPF (0-5)
[2021-04-25] MEDS ORDERED: SODIUM CHLORIDE 0.9% 1000ML 1,000 ML IV SCH (12:30)
[2021-04-25] MEDS ORDERED: SODIUM CHLORIDE 0.9% 1000ML 1,000 ML ONE (12:46)
[2021-04-25 13:54] VITALS: BP 120/72
[2021-04-25 14:46] VITALS: BP 120/72
[2021-04-25 14:51] VITALS: BP 120/72
[2021-04-25 15:05] VITALS: BP 98/57
== END 2021-04-25 16:45 | disposition left against medical advice (07) ==
LOC: ER 07:30 → ERHOLD 12:41 → MED/SURG3 13:21
PROVIDERS: ADMIT Internal Medicine; ATTEND Internal Medicine
DX: R18.8 Other ascites (principal); F10.120 Alcohol abuse with intoxication, uncomplicated; Y90.8 Blood alcohol level of 240 mg/100 ml or more; I10 Essential (primary) hypertension; E66.9 Obesity, unspecified; Z68.23 Body mass index [BMI] 23.0-23.9, adult; R09.02 Hypoxemia; Z20.822 Contact with and (suspected) exposure to COVID-19
CPT/HCPCS: 36415; 71045; 76705; 80053; 80307; 80320; 80329 ×2; 81001; 83690; 85025; 85610; 85730; 93005; 94799; 99284; G0378; J7030; U0002